=== PATIENT | female | born 1970 | race Caucasian/White ===

== ENCOUNTER → 2017-10-23 08:32 | Outpatient (CLI) | payer OTHER, SELFPAY ==
--- NOTE | 2017-10-23 08:40 | US_ITS ---
STUDY: ABDOMINAL ULTRASOUND - RIGHT UPPER QUADRANT REASON FOR VISIT: Female, 47 years old. Fatty infiltration of the liver. Prior cholecystectomy. TECHNIQUE: Ultrasound evaluation of the right upper quadrant was performed with real-time and static sahu-scale imaging. TECHNICAL QUALITY: Adequate. COMPARISON: Comparison is made with prior examination dated March 09, 2015. FINDINGS: Liver: The liver measures 17.1 cm. There is increased echogenicity consistent with fatty infiltration. The bile ducts are within normal limits. There is hepatic color flow. The direction of portal flow is hepatopetal. There is a 1.3 cm x 1.0 cm x 1.0 cm cyst in the right lobe of the liver. Gallbladder: The patient is status post cholecystectomy. Common Bile Duct (C.B.D.): The common bile duct measures 5.0 mm. Pancreas: Normal size of the head, body of the pancreas. The tail portion is obscured due to overlying bowel gas. There is normal echogenicity of the pancreas. There is no demonstrated pancreatic mass or cyst. Right Kidney: Normal size of the right kidney. The right kidney measures 12.3 cm x 4.9 cm x 3.9 cm. Normal renal cortex. The right cortex measures 1.2 cm. There is no demonstrated renal mass or cyst. There is no right hydronephrosis. US/Liver IMPRESSION: Fatty infiltration of the liver. Small cyst in the right lobe of the liver. Electronically Signed: Tray uMrphy MD at 11:32 EST Tel [phone], Service support ,
--- NOTE | 2017-10-23 08:41 | RAD_ITS ---
STUDY: X-RAY - LUMBAR SPINE REASON FOR EXAM: Female, 47 years old. Chronic low back pain. TECHNIQUE: 5 view(s) of the lumbar spine were obtained including oblique views. COMPARISON: None FINDINGS: Normal lumbar lordosis. There is a levoscoliosis of the lumbar spine. There is a grade 1 anterior listhesis of L5 on S1. This most likely secondary to facet joint osteoarthritis. Normal vertebral bodies and endplates. Mild degree of disc space narrowing at the L5-S1 level. The soft tissue structures are unremarkable. RAD/L/S Spine Min 4 Views IMPRESSION: Levoscoliosis. Grade 1 anterolisthesis of L5 on S1. Electronically Signed: Tray Murphy MD at 12:51 EST Tel [phone], Service support ,
== END ==
PROVIDERS: Family Provider Internal Medicine; PCP Internal Medicine; Visit Provider Internal Medicine
DX: K76.0 Fatty (change of) liver, not elsewhere classified (principal); M54.5 Low back pain; M54.16 Radiculopathy, lumbar region
CPT/HCPCS: 72110; 76705

== ENCOUNTER 2017-11-30 16:00 | Outpatient (RCR) | payer OTHER, SELFPAY ==
--- NOTE | 2017-11-24 07:17 | HP.PTEVAL_ITS ---
Patient's Visit Information JOAN GUDINO is a 47 year old F referred to Physical Therapy by Candelaria John DO with a diagnosis of low back pain with radiculopathy. Date of Evaluation: 11/11/17 Physical Therapist: Dayton Qureshi - Visit Plan Frequency: 2x /Week Duration: 4 Weeks Plan: Start with flexion based exercises, neutral spine core strengthening, lumbar distraction. Will have to put PT on hold after abdominal surgery, especially with core strengthening activities. Progress HEP as tolerated. - Subjective Subjective: Pt. is here today for her initial evaluation with diagnosis of low back pain with radiculopathy effecting her LLE. Pt. reports having LBP for years, but has become worse over the last 1-2 years. Pt. is now experiencing pain into her left leg, ocassionally to the level of her knee, mostly in the buttock. 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 She reports most of her job is sitting. She reports having numbness/tingling in LLE at times. Pt. denies weakness in LLE and no presence of leg giving out. Pt. also denies saddle region pain and no changes in B/B. Pt. does has a surgical hernia in her abdomen that she is having repaired in a few weeks. Pt. reports no issues with sleeping, but has increased pain with walking, lifting, standing and getting up/down. Decreased pain: OTC meds, ice/heat (temporary). Pt. did have xrays- showing narrowing of lower lumbar disc space and grade 1 anteriorlithesis at L5 on S1. Pt. is hopeful to reduce symptoms in order to get back to all recreational and work activities without issues. - Pain Lumbar spine Pain Intensity (Out of 10): 2 Pain Intensity Range: 0, 6 L posterior thigh Pain Intensity (Out of 10): 2 Pain Intensity Range: 0, 6 - Objective POSTURE: Pt. has increased thoracic kyphosis and reduced lumbar lordosis. Pt. has FH positioning with rounded shoulders. Pt. able to improve with VCing. PALPATION: Pt. has mild increase NW with palpation of bilateral lumbar erector spinea. Pt. has no pain with all spring testing. Mild hypombility noted at L3- L5. NEUROLOGICAL: Pt. has normal sensation to light and sharp touch of bilateral LEs. Pt. has 2+ achilles and patellar DTR bilaterally. Pt. is able to rise on heels and toes without LOB or visible signs of weakness. ROM: LUMBAR SPINE: flexion nil loss mild increase NW upon return, ext min/mod loss increase NW, SB R min loss NE, SB L min loss increase NW, rotation R min/nil loss NE, rotation L min loss increase NW. Pt. has normal hip ROM bilat, but does have tight HS bilaterally. MMT: RLE- ankle/knee 5/5 throughout; hip- flexion 4+/5, increase NW, abd 4/5, ext 4+/5. LLE- ankle 5/5 throughout; knee- ext 4+/5, flexion 5/5; hip- flexion 4+/5, abd 4/5, ext 4+/5. Core strength- poor. (pt. has marked R sided abdominal hernia. GAIT: Pt. ambulates without AD, pt. has increased lateral hip sway, but no marked trendelenburg. Pt. has no visible weakness. STAIRS: Pt. is able to negotiate without issues, with reciprocal pattern with HR. - Special Tests L/S Slump test left side: Negative L/S Slump test right side: Negative L/S Left Straight Leg Raise: Negative L/S Right Straight Leg Raise: Negative Lumbar Standing: Flexion - Mechanical Response: No effect Lumbar Standing: Flexion - Symptoms During Testing: No effect Lumbar Standing: Flexion - Symptoms After Testing: No effect Lumbar Standing: Extension - Mechanical Response: No effect Lumbar Standing: Extension - Symptoms During Testing: Increases Lumbar Standing: Extension - Symptoms After Testing: No worse Lumbar Standing: Right Side Glides - Mechanical Response: No effect Lumbar Standing: Right Side [place] - Symptoms During Testing: No effect Lumbar Standing: Right Side [place] - Symptoms After Testing: No effect Lumbar Standing: Left Side [place] - Mechanical Response: No effect Lumbar Standing: Left Side [place] - Symptoms During Testing: No effect Lumbar Standing: Left Side [place] - Symptoms After Testing: No effect Lumbar Lying: Flexion - Mechanical Response: No effect Lumbar Lying: Flexion - Symptoms During Testing: Decreases Lumbar Lying: Flexion - Symptoms After Testing: Better Lumbar Lying: Extension - Mechanical Response: No effect Lumbar Lying: Extension - Symptoms During Testing: Increases Lumbar Lying: Extension - Symptoms After Testing: No worse Lumbar Static: Slouched Sit - Mechanical Response: No effect Lumbar Static: Slouched Sit - Symptoms During Testing: Increases Lumbar Static: Slouched Sit - Symptoms After Testing: No worse Lumbar Static: Sitting Erect - Mechanical Response: No effect Lumbar Static: Sitting Erect - Symptoms During Testing: Decreases Lumbar Static: Sitting Erect - Symptoms After Testing: No better Lumbar Static:Lying Prone in Extension - Mechanical Response: No effect Lumbar Static: Lying Prone in Extension - Sx During Testing: Increases Lumbar Static: Lying Prone in Extension - Sx After Testing: Worse - Goals Goal 1:: Pt. to be I with HEP. Goal Time Frame: 4-6 Weeks Goal 2:: Pt. to have increased lumbar ROM by 25% in all directions without increase in symptoms. Goal Time Frame: 4-6 Weeks Goal 3:: Pt. to sleep throughout the night without increase in symptoms. Goal Time Frame: 4-6 Weeks Goal 4:: Pt. to have increased BLE and core strength by 1/2 grade reducing stress applied to lumbar spine. Goal Time Frame: 4-6 Weeks Goal 5:: Pt. to complete all ADLs and work activities with 0-1/10 pain in lumbar spine. - Rehabilitation Potential Physical Therapy Diagnosis: Pt. has signs and symptoms consistent with low back pain with radiculopathy. Pt. has marked core weakness and limited lumbar mobility. Pt. did not have a directional preference this date, but extension did increase her symptoms. Pt. did not have any + dural tension testing this date. Pt. would benefit from PT to increase lumabr ROM, core strength and decrease symptoms. Rehabilitation Potential: Good - Anticipated Interventions Patient/Client Instruction: Educate patient on: Condition, Plan of Care, Risk Factors, Benefits of Fitness Program For the Purpose of:: To improve decision making, To facilitate caregiver knowledge, To improve self management, To prevent re-injury, To improve ability to perform tasks related to life management, To improve tolerance to ADL's Therapeutic Exercise to Include: Strength training, Power training, Endurance training, Balance training, Passive ROM, Active ROM, Dynamic Lumbar Stabilization, Naif Exercises For the Purpose of:: To decrease pain, To increase ROM, To improve nutrient delivery to tissue, To increase oxygenation perfusion, To improve muscle performance and motor function, To improve health of tissue, To decrease soft tissue restriction, To increase flexibility/ROM, To improve endurance Manual Therapy Techniques to Include: Mobilization, Functional dry needling, Soft tissue mobilization For the Purpose of:: To decrease pain, To decrease swelling/inflammation, To increase ROM, To improve nutrient delivery to tissue IF ES: Yes Cryotherapy (ice pack, ice massage): Yes Thermo therapy (hot pack): Yes Ultrasound (thermal/non thermal): Yes For the Purpose of:: To decrease pain, To decrease swelling/inflammation, To increase ROM Thank you for the opportunity to evaluate your patient. For Medicare and Medicare HMO plans, please review the plan of care and approve it. It will need to be FAXED BACK to us at [phone] for Medicare purposes. Please let me know if there are questions or concerns regarding this plan of care. Physician Signature: Date:
--- NOTE | 2018-02-14 19:52 | HP.PT.NRP ---
HP - Discharge Summary (1) - Patient Information JOAN GUDINO was seen in my office for initial evaluation on 11/11/17. The following Plan of Care was established for this patient: Initial Frequency: 2x /Week Initial Duration: 4 Weeks - Anticipated Interventions Patient/Client Instruction: Educate patient on: Condition, Plan of Care, Risk Factors, Benefits of Fitness Program For the Purpose of:: To improve decision making, To facilitate caregiver knowledge, To improve self management, To prevent re-injury, To improve ability to perform tasks related to life management, To improve tolerance to ADL's Therapeutic Exercise to Include: Strength training, Power training, Endurance training, Balance training, Passive ROM, Active ROM, Dynamic Lumbar Stabilization, Naif Exercises For the Purpose of:: To decrease pain, To increase ROM, To improve nutrient delivery to tissue, To increase oxygenation perfusion, To improve muscle performance and motor function, To improve health of tissue, To decrease soft tissue restriction, To increase flexibility/ROM, To improve endurance Manual Therapy Techniques to Include: Mobilization, Functional dry needling, Soft tissue mobilization For the Purpose of:: To decrease pain, To decrease swelling/inflammation, To increase ROM, To improve nutrient delivery to tissue IF ES: Yes Cryotherapy (ice pack, ice massage): Yes Thermo therapy (hot pack): Yes Ultrasound (thermal/non thermal): Yes For the Purpose of:: To decrease pain, To decrease swelling/inflammation, To increase ROM This patient was last seen in our office 11/30/17. Pertinent comments regarding their Physical therapy will appear below: Pt. was seen for 4 visits for her low back pain. Focus on core strengthening. Pt. had a hernia surgery and was to follow up in PT once cleared. Pt. has not been seen in ~10 weeks and will be DC from PT at this point in time. At this point I will be discontinuing this patient from physical therapy. I would be happy to see this patient again in the future if found appropriate by the physician. Thank you! Dayton Qureshi
== END 2017-11-30 19:00 | disposition home or self-care (01) ==
LOC: PT 16:00
PROVIDERS: Family Provider Internal Medicine; PCP Internal Medicine; Visit Provider Internal Medicine
DX: M54.5 Low back pain (principal)
CPT/HCPCS: 97110; 97161

== ENCOUNTER 2017-12-09 05:38 | Day surgery (SDC) | payer OTHER, SELFPAY ==
--- NOTE | 2017-12-08 07:33 | EKG12_ITS ---
Test Reason : PRE-OP Blood Pressure : / mmHG Vent. Rate : 075 BPM Atrial Rate : 075 BPM P-R Int : 122 ms QRS Dur : 074 ms QT Int : 390 ms P-R-T Axes : 037 036 065 degrees QTc Int : 435 ms Normal sinus rhythm Normal ECG Confirmed by GIUSEPPE MOE MD ([id number]), editor at large AAYUSH ALANIZ ([id number]) on 12/10/2017 2:53:26 PM Referred By: Mil Rivera Confirmed By:GIUSEPPE MOE MD
[2017-12-08 08:29] LABS: Hematocrit 41.7 % (37-47); Hemoglobin 13.5 g/dl (12.0-15.0); Mean Corp Hgb Conc 32.4 g/gl (32-36); Mean Corpuscular Hgb 28.2 pg (27.0-32.0); Mean Corpuscular Volume 87.1 fL (81-99); Mean Platelet Vol. 10.3 fl (6.2-12.0); Platelet Count 314 K/mm3 (150-450); RBC Distribution Width SD 47.9 fl (35.1-43.9); Red Blood Count 4.79 M/mm3 (4.2-5.4); White Blood Count 8.4 K/mm3 (4.4-11.0)
[2017-12-08 08:30] LABS: Scan Indicated on CBC? Y/N NO
[2017-12-08 08:35] LABS: Prothrombin Time (Protime)PT. 12.9 SECONDS (11.7-14.9)
[2017-12-08 08:36] LABS: Partial Thromboplast Time 30.3 Seconds (24.1-36.2)
[2017-12-08 08:54] LABS: AST(SGOT) 10 U/L (15-37); Alanine Aminotransfer ALT/SGPT 13 U/L (13-56); Albumin, Serum 3.4 g/dL (3.2-5.0); Alkaline Phosphatase 91 U/L (45-117); Anion Gap 6 (5-15); BUN 9 mg/dL (7-18); BUN/Creat Ratio 12.6 RATIO (10-20); Calcium,Total 8.2 mg/dL (8.5-10.1); Chloride 104 mmol/L (98-107); Creatinine, Serum 0.71 mg/dL (0.55-1.02); EST Glomerular Filtration Rate 93 mL/min (>60); Est Glom Filt Rate - Afr Amer 113 mL/min (>60); Globulin 3.6 g/dL (2.2-4.2); Glucose 88 mg/dL (74-106); Potassium 3.5 mmol/L (3.5-5.1); Sodium Level 142 mmol/L (136-145)
[2017-12-09 05:51] VITALS: BP 118/79; PULSE 71; RESP 16; TEMP 36.9; O2SAT 97; BMI 41.8
[2017-12-09 06:02] LABS: Internal QC Validated? YES +Cl - CLEAR BKGD; Pregnancy, Urine Negative Negative
[2017-12-09] MEDS: Cefazolin 2 GM in 0.9% Normal Saline 100 ML IV (07:14)
--- NOTE | 2017-12-09 07:14 | OP.PCM_ITS ---
Problem List (1) Incisional hernia Status: Acute Qualifiers: Obstruction and gangrene presence: without obstruction or gangrene Qualified Code(s): K43.2 - Incisional hernia without obstruction or gangrene; K43.91 - Incisional hernia, without obstruction or gangrene Report of Operation Date of Procedure: 12/09/17 Pre-Operative Diagnosis: k43.91 incisional hernia without obstruction or gangrene Post-Operative Diagnosis: Same Surgery/Procedure Performed:: Incisional hernia repair with mesh Type of Anesthesia:: General Anesthesiologist: Tyrel Levy Estimated Blood Loss (mL): < 25 cc Description of Procedure: Patient was brought into the operating room. Placed in the supine position. Under excellent endotracheal intubation the abdomen was sterilely prepped and draped in the usual fashion. Previous incision was opened up below the umbilicus dissection was carried down to the defect. I was able to circumferentially dissect around the defect and placed the hernia sac back into its preperitoneal space. Once I had delineated the fascial edge I grasped with Manjula's and created a preperitoneal window in the abdomen. I did this circumferentially around this defect. I had excellent hemostasis. I injected local. I fashioned a entry no ST hernia patch reference #[id number] lot number [id number] into the wound. I circumferentially tacked to the fascia with figure- of-eight sutures of #1 Nurolon's. I had good hemostasis more local was injected. The subcu was brought together with 2-0 Vicryl deep dermals of 3-0 Vicryl. The skin was then closed with a running subcuticular of 4-0 Monocryl. Steri-Strips are applied sterile dressings were applied and the patient tolerated the procedure well. - Admit VTE Documentation VTE Present on Admission: No VTE Mechan Device Prophylaxis: SCD's VTE Pharm Prophylaxis ordered?: No Reason prophylaxis not ordered:: Treatment Not Indicated
[2017-12-09] MEDS: Bupivacaine 0.25% 30 ML Vial (07:20)
--- NOTE | 2017-12-09 07:55 | DCINST_ITS ---
Discharge Diet: Light diet - advance as tolerated Discharge Activity: Return to Normal Activity, May Drive - when you are no longer taking narcotic pain medications., May Shower - with the bandage in place 1-2 days after surgery. Lifting Restrictions: 20 pounds for 8 weeks. Additional Activity Instructions:: Climbing stairs is fine, walking is encouraged. Sitting in bed may be uncomfortable. Sitting up using your lateral muscles (sitting up sideways) is usually more comfortable. Do not drive, work heavy equipment of sign legal documents for 24 hours. If your hernia repair was an ingunial repair, you may have scrotal swelling, an ice pack and/or athletic support can provide more comfort. Pain medications may cause nausea, you should typically eat light foods as you take your pain medications. Pain medications may also cause constipation. If you have difficulty with this, discuss with your doctor. Call your doctor if your incision/area has: Continuous Slow Oozing, Sudden Increased Bleeding, Increased Pain/ Swelling, Increased Redness, Foul Smelling Discharge Call your doctor if you observe: Fever of 101 or Higher Suture Line Care: Avoid Pulling/Pushing, Avoid Pinching/Bending Additional Dressing/Incision Instructions:: Leave the operative bandage on for 2 -3 days. When you remove the bandage, leave the steri-strips on place until your follow up appointment or they fall off. Allergies/Adverse Reactions: Allergies Sulfa (Sulfonamide Antibiotics) Allergy (Verified 12/04/17 14:56) Unknown Medications to take at Discharge Esomeprazole Mag Trihydrate [Nexium] 40 mg PO PRN PRN 01/14/14 Potassium Chloride [K-Dur] 10 meq PO PRN PRN 03/22/15 montelukast 10 mg tablet 10 mg PO QHS 10/27/17 pravastatin 40 mg tablet 20 mg PO QHS 10/27/17 valsartan 160 mg-hydrochlorothiazide 12.5 mg tablet 1 tab PO DAILY 10/27/17 venlafaxine ER 37.5 mg capsule,extended release 24 hr 37.5 mg PO DAILY 10/27/17 Cholecalciferol (Vitamin D3) [Vitamin D3] 5,000 unit PO DAILY 12/02/17 Iron Carbonyl [Feosol] 27 mg PO DAILY 12/02/17 busPIRone [Buspar] 10 mg PO DAILY 12/02/17 Oxycodone HCl/Acetaminophen [Percocet 5/325] 1 - 2 tab PO Q4H PRN PRN 4 Days # 30 tab 12/09/17 The following prescriptions were given: Oxycodone HCl/Acetaminophen [Percocet 5/325] 1 - 2 tab PO Q4H PRN PRN 4 Days # 30 tab PRN Reason: Pain Primary Care Physician: Candelaria John DO [Primary Care Provider] - Please Follow Up With: Mil Rivera MD - [phone] When: Plan to have a follow up appointment in 7 days. Call to schedule.
[2017-12-09 08:19] VITALS: BP 118/79; BP 142/94; PULSE 87; RESP 16; TEMP 36.5; O2SAT 99
[2017-12-09 08:30] VITALS: BP 118/79; BP 129/81; PULSE 77; RESP 16; O2SAT 100
[2017-12-09 08:45] VITALS: BP 118/79; BP 121/79; PULSE 84; RESP 16; O2SAT 94
[2017-12-09 09:00] VITALS: BP 118/79; BP 133/89; PULSE 75; RESP 16; TEMP 36.3; O2SAT 98
[2017-12-09 10:10] VITALS: BP 118/79
== END 2017-12-09 10:18 | disposition home or self-care (01) ==
LOC: SDC 05:41 → AC 05:41
PROVIDERS: Anesthesiology; Family Provider Internal Medicine; PCP Internal Medicine; Visit Provider Surgery
PROC: (CPT 49560; principal; 2017-12-09 07:00)
DX: K43.2 Incisional hernia without obstruction or gangrene (principal); F41.9 Anxiety disorder, unspecified; J45.909 Unspecified asthma, uncomplicated; F32.9 Major depressive disorder, single episode, unspecified; E78.00 Pure hypercholesterolemia, unspecified; I10 Essential (primary) hypertension; M19.90 Unspecified osteoarthritis, unspecified site; G47.30 Sleep apnea, unspecified; D64.9 Anemia, unspecified; K21.9 Gastro-esophageal reflux disease without esophagitis; K76.0 Fatty (change of) liver, not elsewhere classified; Z87.19 Personal history of other diseases of the digestive system; F17.200 Nicotine dependence, unspecified, uncomplicated; Z90.49 Acquired absence of other specified parts of digestive tract; Z79.899 Other long term (current) drug therapy
CPT/HCPCS: 49560; 49568; 36415; 80048; 80076; 81025; 85027; 85610; 85730; 93005; J7120; C1781; J2405

== ENCOUNTER → 2018-01-13 10:20 | Outpatient (CLI) | payer OTHER, SELFPAY ==
[2018-01-13 11:04] LABS: Absolute Lymphocyte Count 2.73 X10^3/ul (0.83-4.51); Absolute Neutrophil Count 6.7 X10^3/uL (2.0-7.7); Basophil# 0.03 X10^3/uL; Basophil% 0.3 % (0-1); Eosinophil# 0.26 X10^3/uL; Eosinophils% 2.5 % (0-5); Hematocrit 42.4 % (37-47); Hemoglobin 13.8 g/dl (12.0-15.0); Lymphocyte # 2.73 X10^3/ul (4.0); Lymphocyte % 26.2 % (19-41); Mean Corp Hgb Conc 32.5 g/gl (32-36); Mean Corpuscular Hgb 27.9 pg (27.0-32.0); Mean Corpuscular Volume 85.8 fL (81-99); Mean Platelet Vol. 10.3 fl (6.2-12.0); Monocyte# 0.72 X10^3/uL; Monocyte% 6.9 % (0-10); Neutrophil # 6.67 X10^3/uL (2.7-7.7); POSITIVE COUNT NO; POSITIVE DIFFERENTIAL NO; POSITIVE MORPHOLOGY NO; Platelet Count 315 K/mm3 (150-450); RBC Distribution Width CV 14.9 % (11.6-14.6); RBC Distribution Width SD 46.7 fl (35.1-43.9); Red Blood Count 4.94 M/mm3 (4.2-5.4); White Blood Count 10.4 K/mm3 (4.4-11.0)
[2018-01-13 11:49] LABS: Microalbumin,Random Urine 13.5 mg/L (NO RANGE EST.); Microalbumin:Creatinine Ratio 6.3 mg/g CRE (<30 mg/g CRE)
[2018-01-13 11:52] LABS: AST(SGOT) 13 U/L (15-37); Alanine Aminotransfer ALT/SGPT 19 U/L (13-56); Albumin, Serum 3.8 g/dL (3.2-5.0); Alkaline Phosphatase 99 U/L (45-117); Anion Gap 6 (5-15); BUN 9 mg/dL (7-18); BUN/Creat Ratio 11.3 RATIO (10-20); Calcium,Total 8.6 mg/dL (8.5-10.1); Chloride 105 mmol/L (98-107); Cholesterol 223 mg/dL (200); EST Glomerular Filtration Rate 82 mL/min (>60); Est Glom Filt Rate - Afr Amer 99 mL/min (>60); Ferritin 12 ng/mL (8-252); Globulin 3.9 g/dL (2.2-4.2); Glucose 83 mg/dL (74-106); High Density Lipoprotein 39 mg/dL; Iron 49 ug/dL (50-170); Iron Binding Capacity,Total 392 ug/dL (250-450); Potassium 3.7 mmol/L (3.5-5.1); Protein, Total 7.7 g/dL (6.4-8.2); Sodium Level 139 mmol/L (136-145); Triglycerides 248 mg/dL; Very Low Density Lipoprotein 50 mg/dL (5-40)
[2018-01-13 11:55] LABS: Hemoglobin A1c 5.7 % (4.2-6.3)
[2018-01-13 11:56] LABS: Vitamin B12 282 pg/mL (211-911); Vitamin D,25 Hydroxy 22.1 ng/mL (29.95-100.01)
== END ==
PROVIDERS: Family Provider Internal Medicine; PCP Internal Medicine; Visit Provider Internal Medicine
DX: E61.1 Iron deficiency (principal); E55.9 Vitamin D deficiency, unspecified; E78.2 Mixed hyperlipidemia; R73.09 Other abnormal glucose
CPT/HCPCS: 36415; 80053; 80061; 82043; 82306; 82570; 82607; 82728; 83036; 83540; 83550; 85025

== ENCOUNTER → 2018-01-29 16:15 | Outpatient (CLI) | payer OTHER, SELFPAY ==
--- NOTE | 2018-01-29 16:26 | MRI_ITS ---
MR Spine Lumbar W/O Contrast INDICATION: Low back pain with bilateral hip pain radiating to left leg, NKI. Worsening symptoms x 6-8 months COMPARISON: None TECHNIQUE: Multiplanar multisequence MRI examination of the lumbar spine without contrast FINDINGS: There is mild left convex scoliosis of the lumbar spine and minimal anterolisthesis of L5 on S1, otherwise normal lumbar lordosis. Bone marrow signal is heterogenous with a few small hemangiomas. No evidence of bone marrow edema or lesion. The conus is located at the T12/L1 level and is morphologically unremarkable. There is normal distribution of the nerve roots of the cauda equina. T12-L1 level is unremarkable. L1-2 level demonstrates mild left lateral disc bulging, no significant spinal canal or neuroforaminal narrowing. L2-3 level demonstrates mild facet arthritic changes, no significant disc bulging, spinal canal or neuroforaminal narrowing. L3-4 level demonstrates mild endplate degenerative changes and mild diffuse distorting. There is mild bilateral facet joint arthropathy. There is no significant spinal canal or neuroforaminal stenosis. L4-5 level demonstrates mild facet arthritic changes and disc bulging resulting in [id number] bilateral neuroforaminal narrowing. Spinal canal is not significantly narrowed. L5-S1 level demonstrates severe bilateral facet joint arthropathy/hypertrophy resulting in 3 mm anterolisthesis of L5 on S1. The disc is mildly diffusely bulging. There is mild right and moderate left neural foraminal narrowing. Spinal canal is not significantly narrowed. MRI/Spine Lumbar (Routine) IMPRESSION: Mild left convex scoliosis of the lumbar spine with multilevel degenerative changes as detailed above, most severe at L5-S1 where there is severe facet joint arthropathy/hypertrophy with 3 mm listhesis and mild right and moderate left neuroforaminal narrowing. The spinal canal is not significantly narrowed at any level. at 0110 Reported and signed by: Areli Cardozo MD Electronically Signed: Areli Cardozo MD at 1:09 EDT Tel , Service support ,
== END ==
PROVIDERS: Family Provider Internal Medicine; PCP Internal Medicine; Visit Provider Internal Medicine
DX: M54.5 Low back pain (principal)
CPT/HCPCS: 72148

== ENCOUNTER → 2018-02-10 09:55 | Outpatient (CLI) | payer OTHER, SELFPAY ==
--- NOTE | 2018-02-10 09:57 | RAD_ITS ---
STUDY: X-RAY CHEST REASON FOR EXAM: Female, 47 years old. 2 week history of TECHNIQUE: PA and lateral views of the chest. COMPARISON: Comparison is made with prior study dated March 07, 2015. FINDINGS: The lungs are clear and expanded. Scattered calcified granulomas. There is no demonstrated pleural abnormality. Normal size heart. Normal mediastinum and maikel. Normal visualized pulmonary arteries. Normal visualized aortic arch and descending thoracic aorta. There is a dextroscoliosis of the thoracic spine. Normal visualized ribs, clavicles, and shoulders. There is no demonstrated abnormality of the visualized soft tissue structures of the upper abdomen. RAD/Chest PA and Lateral IMPRESSION: No acute abnormality is seen. Electronically Signed: Tray Murphy MD at 10:16 EDT Tel [phone], Service support ,
== END ==
PROVIDERS: Family Provider Internal Medicine; PCP Internal Medicine; Visit Provider Internal Medicine
DX: R05 Cough (principal)
CPT/HCPCS: 71046

== ENCOUNTER 2018-05-03 12:49 | Day surgery (SDC) | payer OTHER, SELFPAY ==
[2018-05-03 13:07] VITALS: BP 129/84; PULSE 85; RESP 14; TEMP 36.8; O2SAT 94; BMI 44.4
[2018-05-03 13:18] LABS: Internal QC Validated? YES +Cl - CLEAR BKGD; Pregnancy, Urine Negative Negative
--- NOTE | 2018-05-03 14:10 | RAD_ITS ---
PROCEDURE: Caudal block. DATE OF EXAMINATION: May 03, 2018. INDICATION: Female, 47 years old. Chronic low back pain. FLUOROSCOPY TIME (if supplied): (0:12) minutes/seconds. 2 images were obtained. The spinal needle is seen along the posterior midportion of the sacrum. RAD/Fluor Guidance for Spine Inj IMPRESSION: The spinal needle is seen along the posterior midportion of the sacrum. Electronically Signed: Tray Murphy MD at 8:24 EDT Tel [phone], Service support ,
[2018-05-03] MEDS: Bupivacaine 0.25% 30 ML Vial (14:20)
[2018-05-03] MEDS: MethylPREDNISolone Acetate 80 MG/ML Vial (14:20)
[2018-05-03 14:26] VITALS: BP 104/82; BP 129/84; PULSE 83; RESP 16; TEMP 37.1; O2SAT 96
[2018-05-03 14:30] VITALS: BP 103/75; BP 129/84; PULSE 72; RESP 16; O2SAT 99
[2018-05-03 14:35] VITALS: BP 102/70; BP 129/84; PULSE 72; RESP 16; O2SAT 98
[2018-05-03 14:44] VITALS: BP 123/81; BP 129/84; PULSE 82; RESP 16; TEMP 36.7; O2SAT 98
[2018-05-03 15:04] VITALS: BP 129/84
--- NOTE | 2018-05-03 15:09 | PCM.OPRPT ---
Problem List (1) Radiculopathy of lumbosacral region Status: Chronic (2) Degeneration of intervertebral disc of lumbosacral region Status: Chronic Report of Operation Date of Procedure: 05/03/18 Pre-Operative Diagnosis: Lumbosacral radiculopathy, lumbosacral degenerative disc disease, lumbosacral spinal stenosis Post-Operative Diagnosis: Lumbosacral radiculopathy, lumbosacral degenerative disc disease, lumbosacral spinal stenosis Surgery/Procedure Performed:: Diagnostic/therapeutic caudal epidural steroid injection Description of Surgical Findings:: PROCEDURE: Diagnostic/therapeutic caudal epidural steroid injection PREOPERATIVE DIAGNOSIS: Lumbosacral radiculopathy, lumbosacral degenerative disc disease, lumbosacral spinal stenosis POSTOPERATIVE DIAGNOSIS: Lumbosacral radiculopathy, lumbosacral degenerative disc disease, lumbosacral spinal stenosis ANESTHESIA: MAC COMPLICATIONS: None BLOOD LOSS: Minimal PROCEDURE IN DETAIL: History and physical today was reviewed. Risks and benefits of the procedure were explained. The patient understood, agreed to our procedure, and informed consent was obtained. IV inserted per routine protocol. The patient was taken to the operating room, placed in a prone position with a pillow positioned underneath the abdomen. The Lower back and tailbone area was prepped and draped in a sterile fashion using iodine ?3, under fluoroscopy guidance on the lateral view the caudal space was identified the skin and subcutaneous tissue and size approximately 3 cc of 1% lidocaine using a 25-gauge regular needle under direct visualization with fluoroscopy using a 22-gauge 3-1/2 inch spinal needle the needle was advanced via the skin through the sacral hiatus the needle then was passed through the sacrococcygeal ligament and advanced to approximately S4 area, after negative aspiration for blood or CSF, a total of 3 cc of contrast were injected to confirm correct placement of the needle as well as cephalad spread the spread was followed to approximately L5 area. after confirmation on AP as well as lateral view and repeated negative aspiration, a total of 15 cc of preservative-free 0.125% Marcaine with 80 mg of Depo-Medrol was injected easily. The needles were then removed intact. The patient experienced no signs or symptoms intrathecal, intravascular injection. The patient experienced no paraesthesia. The procedure was completed without any apparent difficult, any complication. The patient appeared to tolerate well. ASSESSMENT AND PLAN: This is a 47-year-old female with lumbosacral radiculopathy, lumbosacral degenerative disc disease, lumbosacral spinal stenosis status post diagnostic/therapeutic caudal epidural steroid injection. The patient will continue her current medications. The patient will follow in approximately 2 weeks for possible repeat of the procedure if indicated.
== END 2018-05-03 15:04 | disposition home or self-care (01) ==
LOC: SDC 12:49 → AC 12:52
PROVIDERS: Anesthesiology; Family Provider Internal Medicine; PCP Internal Medicine; Visit Provider Anesthesiology Pain Medicine
PROC: 3E0S3BZ Introduction of Anesthetic Agent into Epidural Space, Percutaneous Approach (ICD-10-PCS; CPT 62282; principal; 2018-05-03 13:45)
DX: M47.27 Other spondylosis with radiculopathy, lumbosacral region (principal); M51.37 Other intervertebral disc degeneration, lumbosacral region; M48.07 Spinal stenosis, lumbosacral region; M46.96 Unspecified inflammatory spondylopathy, lumbar region; I83.90 Asymptomatic varicose veins of unspecified lower extremity; I11.9 Hypertensive heart disease without heart failure; G43.909 Migraine, unspecified, not intractable, without status migrainosus; F41.9 Anxiety disorder, unspecified; F32.9 Major depressive disorder, single episode, unspecified; G47.33 Obstructive sleep apnea (adult) (pediatric); E78.00 Pure hypercholesterolemia, unspecified; L40.9 Psoriasis, unspecified; M19.90 Unspecified osteoarthritis, unspecified site; J45.909 Unspecified asthma, uncomplicated; D64.9 Anemia, unspecified; M41.9 Scoliosis, unspecified; K21.9 Gastro-esophageal reflux disease without esophagitis; Z87.19 Personal history of other diseases of the digestive system; Z79.891 Long term (current) use of opiate analgesic; Z79.899 Other long term (current) drug therapy; F17.210 Nicotine dependence, cigarettes, uncomplicated
CPT/HCPCS: 62323; 64483; 77003; 81025; J7120; J3490

== ENCOUNTER → 2018-05-05 07:54 | Outpatient (CLI) | payer OTHER, SELFPAY ==
[2018-05-05 08:19] LABS: Absolute Lymphocyte Count 2.72 X10^3/ul (0.83-4.51); Absolute Neutrophil Count 9.2 X10^3/uL (2.0-7.7); Basophil# 0.02 X10^3/uL; Basophil% 0.2 % (0-1); Eosinophil# 0.05 X10^3/uL; Eosinophils% 0.4 % (0-5); Hematocrit 42.4 % (37-47); Hemoglobin 14.1 g/dl (12.0-15.0); Lymphocyte # 2.72 X10^3/ul (4.0); Lymphocyte % 21.6 % (19-41); Mean Corp Hgb Conc 33.3 g/gl (32-36); Mean Corpuscular Hgb 28.7 pg (27.0-32.0); Mean Corpuscular Volume 86.2 fL (81-99); Mean Platelet Vol. 10.3 fl (6.2-12.0); Monocyte# 0.56 X10^3/uL; Monocyte% 4.5 % (0-10); Neutrophil # 9.21 X10^3/uL (2.7-7.7); Neutrophil % 73.1 % (47-70); POSITIVE COUNT NO; POSITIVE DIFFERENTIAL NO; POSITIVE MORPHOLOGY NO; Platelet Count 351 K/mm3 (150-450); RBC Distribution Width CV 14.4 % (11.6-14.6); RBC Distribution Width SD 45.1 fl (35.1-43.9); Red Blood Count 4.92 M/mm3 (4.2-5.4); White Blood Count 12.6 K/mm3 (4.4-11.0)
[2018-05-05 08:45] LABS: ALB/GLOB Ratio 0.9 RATIO (0.9-2.4); AST(SGOT) 11 U/L (15-37); Alanine Aminotransfer ALT/SGPT 18 U/L (13-56); Albumin, Serum 3.7 g/dL (3.2-5.0); Alkaline Phosphatase 93 U/L (45-117); Anion Gap 12 (5-15); BUN 14 mg/dL (7-18); BUN/Creat Ratio 16.9 RATIO (10-20); Chloride 105 mmol/L (98-107); Cholesterol 249 mg/dL (200); Creatinine, Serum 0.83 mg/dL (0.55-1.02); EST Glomerular Filtration Rate 78 mL/min (>60); Est Glom Filt Rate - Afr Amer 94 mL/min (>60); Glucose 105 mg/dL (74-106); High Density Lipoprotein 36 mg/dL; Potassium 3.6 mmol/L (3.5-5.1); Protein, Total 7.7 g/dL (6.4-8.2); Sodium Level 142 mmol/L (136-145); Triglycerides 139 mg/dL; Very Low Density Lipoprotein 28 mg/dL (5-40)
[2018-05-05 09:06] LABS: Vitamin B12 463 pg/mL (211-911); Vitamin D,25 Hydroxy 56.1 ng/mL (29.95-100.01)
== END ==
PROVIDERS: Family Provider Internal Medicine; PCP Internal Medicine; Visit Provider Internal Medicine
DX: I11.9 Hypertensive heart disease without heart failure (principal); E78.2 Mixed hyperlipidemia; K76.0 Fatty (change of) liver, not elsewhere classified; E55.9 Vitamin D deficiency, unspecified; E53.8 Deficiency of other specified B group vitamins
CPT/HCPCS: 36415; 80053; 80061; 82105; 82306; 82607; 85025

== ENCOUNTER → 2018-06-17 15:58 | Outpatient (CLI) | payer OTHER, SELFPAY ==
--- NOTE | 2018-06-17 15:59 | BI_ITS ---
MAMMOGRAPHY - BILATERAL SCREENING 3-D CASEY SYNTHESIS REASON FOR EXAM: Female, 47 years old. Bilateral Screening 3-D tomosynthesis PERTINENT HISTORY: No significant family history. 40 pound weight gain. TECHNIQUE: 2-D mammograms and 3-D Casey synthesis of the breast (s) were performed. CAD was performed. COMPARISON: 04/28/2017. FINDINGS: The breast composition is composed of scattered fibroglandular density. No dense spiculated masses or suspicious microcalcification cluster are identified. No architectural distortion or asymmetric density is identified. There is no skin thickening or nipple retraction identified. There has been no significant change identified since the prior study. BI/SCREENING MAMM (CAD), BILAT IMPRESSION: No mammographic sign of malignancy. Routine yearly mammograms recommended. ASSESSMENT CATEGORY: BIRADS Category 2: Benign. A letter regarding these results will be sent to the patient by the facility within 30 days. FOLLOW UP RECOMMENDATION: Yearly follow up mammogram recommended. (A) Negative mammographic results should not deter biopsy as a palpable lesion if present should be followed based on clinical grounds and biopsy performed if clinically persistent for 3 months or increasing size. Approximately 10% of breast cancers are not detected by mammography. A normal mammogram should not delay biopsy of a clinically suspicious abnormality. Electronically Signed: Yaakov Monroy, at 18:54 EDT Tel , Service support ,
== END ==
PROVIDERS: Family Provider Internal Medicine; PCP Internal Medicine; Visit Provider Internal Medicine
DX: Z12.31 Encounter for screening mammogram for malignant neoplasm of breast (principal)
CPT/HCPCS: 77063; 77067

== ENCOUNTER 2018-06-28 07:44 | Day surgery (SDC) | payer OTHER, SELFPAY ==
[2018-06-28] VITALS (7 sets, daily range): BP systolic 107–120; BP diastolic 57–83; PULSE 70–87; RESP 16; TEMP 36.3–37.2; O2SAT 94–98; BMI 45.3
[2018-06-28 08:10] LABS: Internal QC Validated? YES +Cl - CLEAR BKGD; Pregnancy, Urine Negative Negative
--- NOTE | 2018-06-28 08:55 | RAD_ITS ---
PROCEDURE: Bilateral L4 S1 lumbar facet injections. DATE OF EXAMINATION: June 28, 2018. INDICATION: Female, 47 years old. Chronic low back pain. FLUOROSCOPY TIME (if supplied): (0:32) minutes/seconds Intraoperative imaging provided for bilateral L4-S1 facet joint injections. RAD/L/S Spine Min 4 Views IMPRESSION: Intraoperative imaging provided for bilateral L4-S1 facet joint injections. Electronically Signed: Tray Murphy MD at 15:12 EDT Tel [phone], Service support ,
[2018-06-28] MEDS: MethylPREDNISolone Acetate 80 MG/ML Vial (09:01)
[2018-06-28] MEDS: Bupivacaine 0.5% PF 10 ML VIAL (09:01)
--- NOTE | 2018-06-28 10:21 | OP.PCM_ITS ---
Problem List (1) Spondylosis of lumbosacral region without myelopathy or radiculopathy Status: Chronic (2) Degeneration of intervertebral disc of lumbosacral region Status: Chronic Report of Operation Date of Procedure: 06/28/18 Pre-Operative Diagnosis: Lumbosacral spondylosis, lumbosacral degenerative disc disease, lumbar facet arthropathy Post-Operative Diagnosis: Lumbosacral spondylosis, lumbosacral degenerative disc disease, lumbar facet arthropathy Surgery/Procedure Performed:: Bilateral lumbar facet steroid injection L4, L5, S1 Description of Surgical Findings:: PROCEDURE: Bilateral lumbar facet steroid injection L4, L5, S1 PREOPERATIVE DIAGNOSIS: Lumbosacral spondylosis, lumbosacral degenerative disc disease, and lumbar facet arthropathy POSTOPERATIVE DIAGNOSIS: Lumbosacral spondylosis, lumbosacral degenerative disc disease, and lumbar facet arthropathy ANESTHESIA: MAC COMPLICATIONS: None BLOOD LOSS: Minimal PROCEDURE IN DETAIL: History and physical today was reviewed. Risks and benefits of the procedure were explained. The patient understood, agreed to our procedure, and informed consent was obtained. IV inserted per routine protocol. The patient was taken to the operating room, placed in a prone position with a pillow positioned underneath the abdomen. The right side of his lower back was prepped and draped in a sterile fashion using iodine x3. Under fluoroscopy guidance, on AP view the L4 through S1 vertebral bodies are visualized the skin and subcutaneous tissue and size approximately 5 cc of 1% lidocaine using a 25-gauge regular needle under direct visualization with fluoroscopy at approximately 15 degrees angle starting on the left L4 ending on the right L4 passing through the L5-S1 bilaterally, the needle was advanced via the skin. The tip of the needle was maneuvered and directed towards the superior and medial gutter of the transverse process at the vicinity of the medial branch. Once the tip of the needle was in contact with the bone, the needle pulled approximately 2 mm off the bone. After negative aspiration of blood with CSF and confirmation of AP as well as oblique view, a total of 12 mL of preservative-free 0.25% Marcaine with 80 mg of Depo- Medrol was injection in divided doses between those 6 levels. The needles were then removed intact. The patient experienced no signs or symptoms intrathecal, intravascular injection. The patient experienced no paraesthesia. The procedure was completed without any apparent difficult, any complication. The patient appeared to tolerate well. ASSESSMENT AND PLAN: This is a 47-year-old female with lumbosacral spondylosis, lumbosacral degenerative disc disease and lumbar facet arthropathy, status post bilateral lumbar facet steroid injection L4 through S1. The patient will continue her current medications. The patient will follow in approximately 2 weeks for possible repeat of the procedure if indicated.
== END 2018-06-28 10:00 | disposition home or self-care (01) ==
LOC: SDC 07:44 → AC 07:45
PROVIDERS: Family Provider Internal Medicine; PCP Internal Medicine; Referring Provider Anesthesiology Pain Medicine; Visit Provider Anesthesiology Pain Medicine
PROC: 3E0T3BZ Introduction of Anesthetic Agent into Peripheral Nerves and Plexi, Percutaneous Approach (ICD-10-PCS; CPT 64493; principal; 2018-06-28 08:50)
DX: M51.17 Intervertebral disc disorders with radiculopathy, lumbosacral region (principal); M47.27 Other spondylosis with radiculopathy, lumbosacral region; M48.07 Spinal stenosis, lumbosacral region; M43.17 Spondylolisthesis, lumbosacral region; M46.90 Unspecified inflammatory spondylopathy, site unspecified; K29.00 Acute gastritis without bleeding; I11.9 Hypertensive heart disease without heart failure; F41.9 Anxiety disorder, unspecified; F32.9 Major depressive disorder, single episode, unspecified; G47.33 Obstructive sleep apnea (adult) (pediatric); E53.8 Deficiency of other specified B group vitamins; E55.9 Vitamin D deficiency, unspecified; E78.5 Hyperlipidemia, unspecified; J45.909 Unspecified asthma, uncomplicated; K21.9 Gastro-esophageal reflux disease without esophagitis; D64.9 Anemia, unspecified; F17.200 Nicotine dependence, unspecified, uncomplicated; Z79.51 Long term (current) use of inhaled steroids; Z79.891 Long term (current) use of opiate analgesic; Z79.899 Other long term (current) drug therapy
CPT/HCPCS: 64493; 64494; 64495; 64483; 72110; 81025; J7120; J3490

== ENCOUNTER → 2018-08-18 09:12 | Outpatient (CLI) | payer OTHER, SELFPAY ==
[2018-06-28 08:10] VITALS: BMI 45.3
[2018-08-18 10:13] LABS: Absolute Neutrophil Count 8.1 X10^3/uL (2.0-7.7); Basophil# 0.03 X10^3/uL; Basophil% 0.3 % (0-1); Eosinophil# 0.19 X10^3/uL; Eosinophils% 1.6 % (0-5); Hematocrit 42.4 % (37-47); Lymphocyte % 22.1 % (19-41); Mean Corpuscular Hgb 28.5 pg (27.0-32.0); Mean Corpuscular Volume 86.2 fL (81-99); Mean Platelet Vol. 10.5 fl (6.2-12.0); Monocyte# 0.85 X10^3/uL; Monocyte% 7.2 % (0-10); Neutrophil # 8.05 X10^3/uL (2.7-7.7); Neutrophil % 68.6 % (47-70); Platelet Count 339 K/mm3 (150-450); RBC Distribution Width CV 14.9 % (11.6-14.6); RBC Distribution Width SD 46.4 fl (35.1-43.9); Red Blood Count 4.92 M/mm3 (4.2-5.4); White Blood Count 11.7 K/mm3 (4.4-11.0)
[2018-08-18 10:18] LABS: POSITIVE COUNT NO; POSITIVE DIFFERENTIAL NO; POSITIVE MORPHOLOGY NO
[2018-08-18 10:33] LABS: Microalbumin,Random Urine 8.1 mg/L (NO RANGE EST.); Microalbumin:Creatinine Ratio 4.6 mg/g CRE (<30 mg/g CRE)
[2018-08-18 10:39] LABS: Hemoglobin A1c 5.6 % (4.2-6.3)
[2018-08-18 10:50] LABS: ALB/GLOB Ratio 0.8 RATIO (0.9-2.4); AST(SGOT) 10 U/L (15-37); Alanine Aminotransfer ALT/SGPT 15 U/L (13-56); Albumin, Serum 3.4 g/dL (3.2-5.0); Alkaline Phosphatase 94 U/L (45-117); Anion Gap 10 (5-15); BUN 10 mg/dL (7-18); Calcium,Total 8.7 mg/dL (8.5-10.1); Chloride 105 mmol/L (98-107); Creatinine, Serum 0.83 mg/dL (0.55-1.02); EST Glomerular Filtration Rate 77 mL/min (>60); Est Glom Filt Rate - Afr Amer 94 mL/min (>60); Ferritin 16 ng/mL (8-252); Glucose 85 mg/dL (74-106); Iron 94 ug/dL (50-170); Potassium 3.5 mmol/L (3.5-5.1); Protein, Total 7.4 g/dL (6.4-8.2); Sodium Level 140 mmol/L (136-145)
[2018-08-19 08:23] LABS: AFP, Tumor Marker 1.2 ng/mL (0.0-8.3)
== END ==
PROVIDERS: Family Provider Internal Medicine; PCP Internal Medicine; Referring Provider Internal Medicine; Visit Provider Internal Medicine
DX: K76.0 Fatty (change of) liver, not elsewhere classified (principal); R73.01 Impaired fasting glucose; E61.1 Iron deficiency
CPT/HCPCS: 36415; 80053; 82043; 82105; 82570; 82728; 83036; 83540; 85025

== ENCOUNTER 2018-12-13 07:43 | Day surgery (SDC) | payer OTHER, SELFPAY ==
--- NOTE | 2018-12-09 08:49 | HP.PCM_ITS ---
History of Present Illness The patient is a 48 year old F [] Past Medical History Past Medical History (Chronic Problems): Chronic Problems (Last Reviewed 12/16/17 @ 08:14 by Keke Vasquez) Radiculopathy of lumbosacral region (Chronic) Degeneration of intervertebral disc of lumbosacral region (Chronic) Spondylosis of lumbosacral region without myelopathy or radiculopathy (Chronic) HTN (hypertension) (Chronic) Medical History: Medical History (Last Reviewed 12/16/17 @ 08:14 by Keke Vasquez) HTN (hypertension) (Chronic) I10 Depression (Acute) F32.9 Anxiety (Acute) F41.9 Hyperlipidemia (Acute) E78.5 Asthma (Acute) J45.909 repair of right humerus (Acute) Allergies Sulfa (Sulfonamide Antibiotics) Allergy (Verified 12/16/17 08:16) Unknown Home Medications: Ambulatory Orders Medication Instructions Recorded Potassium Chloride [K-Dur] 10 meq PO PRN PRN 03/22/15 montelukast 10 mg tablet 10 mg PO QHS 10/27/17 pravastatin 40 mg tablet 20 mg PO QHS 10/27/17 venlafaxine ER 37.5 mg 37.5 mg PO DAILY 10/27/17 capsule,extended release 24 hr Cholecalciferol (Vitamin D3) 5,000 unit PO DAILY 12/02/17 [Vitamin D3] Iron Carbonyl [Feosol] 27 mg PO DAILY 12/02/17 busPIRone [Buspar] 10 mg PO DAILY 12/02/17 Cyanocobalamin (Vitamin B-12) 500 mcg SL DAILY 04/30/18 [Vitamin B-12] Losartan/Hydrochlorothiazide 1 each PO DAILY 04/30/18 [Losartan-Hctz 100-25 mg Tab] Omeprazole [Prilosec] 20 mg PO DAILY 04/30/18 Albuterol IH (ProAir) [Proair Hfa] 1 - 2 inh INHALATION Q4H PRN PRN 06/28/18 Surgical History: Surgical History (Last Updated 12/16/17 @ 08:16 by Keke Vasquez) History of incisional hernia repair (Acute) Z98.890, Z87.19 12/09/2017 History of cholecystectomy (Acute) Z98.890, Z90.49 History of tonsillectomy (Acute) Z98.890, Z90.89 History of colonoscopy (Acute) Z98.890 2013 Smoking Status: Current every day smoker Subjective: NOTE (Friday November 23, 2018 04:10 PM) Chief Complaint: Follow up History of Present Illness: This is a 48 Y/O female who was seen and evaluated at our office today as a follow up. Pain: back, bilateral hips, leg Quality: constant but varies in intensity Region: low back, bilateral hips and left leg Severity: 6/10 Timin years ago Aggravated by: no pain Relieved by: no pain Pain score (out of 10): 0/10 Other info: Patient is here for a follow up. States she is starting to get the burning down left leg and a dull ache in right hip and would like to discuss injection. Review of Systems: Patient denies any recent fever, chills, headache, change in weight without trying, vision or hearing problems. No cp, sob, cardenas, pnd, orthopnea, or peripheral edema.They note no lumps or swollen glands, no new ra shes, changing moles, or change in bowel or bladder function. No melena or BRBPR. Mood has been more down. Past Medical History: h/o Acute Gastritis h/o symptomatic varicose veins h/o hypertensive heart disease h/o hypertension h/o migraines h/o anxiety h/o depression h/o obstructive sleep apnea h/o vitamin D deficiency h/o vitamin B12 deficiency h/o hyperlipidemia h/o Psoriasis h/o anemia h/o Arthritis h/o scoliosis h/o asthma s/p hernia repair s/p Cholecystectomy s/p tonsillectomy s/p adenoidectomy s/p Right humeral fx 2015 ([facility]) Family History: ======== Structured Family History ======== Father: Hypercholesterolemia, Coronary artery disease, Hypertension Mother: Hypertension, Anxiety, Hypercholesterolemia Paternal Grandmother: Diabetes mellitus Social History: [Tobacco: Current every day smoker (0 ppd x 0 yrs = 0 pk yrs) Start Date: 02/17/2018 Pipe Smoker: No Cigar Smoker: No Chewing Tobacco User: No Electronic Cigarette User: No] Living situation: Occupation: [employer] Tobacco: Cigarettes EtOH: Rarely Rec. drugs: Denies Allergies: Sulfa drugs, Obdulio inhibitors Medications: 1) atorvastatin 10 mg oral tablet, Take 1 tablet by mouth once daily 2) busPIRone 10 mg oral tablet, One tablet BID 3) Effexor XR 37.5 mg oral capsule, extended release, One tablet daily prn 4) losartan-hydrochlorothiazide 50mg-12.5mg oral tablet, Take 1 tablet by mouth once daily 5) montelukast 10 mg oral tablet, One tablet daily 6) olopatadine 665 mcg/inh nasal spray, 2 sprays each nostril daily 7) potassium chloride 10 mEq oral capsule, extended release, One tablet po prn 8) Singulair 10 mg oral tablet, One tablet daily 9) Vitamin D3 5000 intl units oral capsule, One tablet daily Physical Examination: Wt: 269 lb Ht/Ln: 65 in BMI: 44.8 BP: 133/90 RR: 18 Temp: 97.8F Pain: 3 Well nourished and well developed in no acute distress. Alert and oriented to person, place and time. Affect is normal and appropriate. Mucosa pink and moist. Respirations even and unlabored. Neck is supple without significant lymphadenopathy or thyromegaly. Abdomen soft & non-tender. No HSM or masses appreciated. Extremities show no cyanosis, clubbing, or edema. Gait is Antalgic. Lumbar ROM is limited due to pain much improved Lumbar paraspinal muscle tenderness much improved Bilateral lumbar facet challenge is positive much improved SLR is negative. Motor and sensory exam is unchanged. 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 OARRS was reviewed today. UDS was reviewed and was compliant. SOAPP score is 3 MRI of the lumbar spine was reviewed with the pt today and they appear to understand. There are no signs of diversion or addiction with the pt, there is also no signs of abuse or misuse, continues to do well with their medications without any side effects, we will continue monitoring the pt closely. PEG was reviewed today. Life style modifications were also discussed today and the pt appears to understand. Weight loss was recommended today through diet and exercise. Smoking cessation was discussed today and pt was encouraged Risks and benefits of the above meds were discussed with the pt and they appear to understand. The common side effects of the medications were discussed and all of their questions and concerns were answered and they appear to understand Discussed natural and expected course of this diagnosis and need to alert me if symptoms do not follow expected course, or if any worse. Pt is to continue with her PT and HEP. Pt has tried multiple modalities with no success, we will schedule the pt for a therapeutic/diagnostic bilateral lumbar facet intra articular steroid injection L4-S1 under fluoroscopy We have discussed the risks, benefits as well as alternatives of the procedure and the patient appears to understand and would like to proceed with the above plan. The above plan was discussed today with the pt in details and they appear to understand and agrees to continue with the plan. Assessment/Plan All Active Problems (Last Reviewed 12/16/17 @ 08:14 by Keke Vasquez) History of incisional hernia repair (Acute) Depression (Acute) Anxiety (Acute) Hyperlipidemia (Acute) Asthma (Acute) History of cholecystectomy (Acute) repair of right humerus (Acute) History of tonsillectomy (Acute) History of colonoscopy (Acute) Incisional hernia (Acute) Low grade squamous intraepithelial lesion (LGSIL) on cervical Pap smear (Acute)
[2018-12-13 08:11] VITALS: BP 126/80; PULSE 81; RESP 18; TEMP 37.4; O2SAT 97; BMI 44.1
[2018-12-13 08:17] LABS: Internal QC Validated? YES +Cl - CLEAR BKGD; Pregnancy, Urine Negative Negative
[2018-12-13] MEDS: Bupivacaine 0.25% 30 ML Vial (08:48)
[2018-12-13] MEDS: MethylPREDNISolone Acetate 80 MG/ML Vial (08:49)
[2018-12-13 09:00] VITALS: BP 122/92; BP 126/80; PULSE 82; RESP 16; TEMP 36.8; O2SAT 93
--- NOTE | 2018-12-13 09:00 | RAD_ITS ---
STUDY: X-RAY - LUMBAR SPINE REASON FOR EXAM: Female, 48 years old. Lumbar facet block TECHNIQUE: 3 view(s) of the lumbar spine were obtained. COMPARISON: None FINDINGS: Intraoperative spot fluoroscopy images were obtained. 9 seconds of total fluoroscopy time. Please see performing physician's report for full details RAD/Lumbar Spine 2 or 3 Views IMPRESSION: As above Electronically Signed: Olaf Jeffries DO at 11:36 EDT Tel , Service support ,
--- NOTE | 2018-12-13 09:00 | RAD_ITS ---
STUDY: X-RAY - LUMBAR SPINE REASON FOR EXAM: Female, 48 years old. Right-sided lumbar facet block at L4-S1 TECHNIQUE: 3 view(s) of the lumbar spine were obtained. COMPARISON: None FINDINGS: Intraoperative spot fluoroscopy images during the procedure. Total fluoroscopy time 15.1 seconds. Please see performing physician's report for further details RAD/Lumbar Spine 2 or 3 Views IMPRESSION: As above Electronically Signed: Olaf Jeffries DO at 10:36 EDT Tel , Service support ,
--- NOTE | 2018-12-13 09:04 | OP.PCM_ITS ---
Problem List (1) Degeneration of intervertebral disc of lumbosacral region Status: Chronic (2) Spondylosis of lumbosacral region without myelopathy or radiculopathy Status: Chronic Report of Operation Date of Procedure: 12/13/18 Pre-Operative Diagnosis: Lumbosacral spondylosis, lumbosacral degenerative disc disease, lumbar facet arthropathy Post-Operative Diagnosis: Lumbosacral spondylosis, lumbosacral degenerative disc disease, lumbar facet arthropathy Surgery/Procedure Performed:: Bilateral lumbar facet steroid injection L4, L5, S1 Description of Surgical Findings:: PROCEDURE: Bilateral lumbar facet steroid injection L4, L5, S1 PREOPERATIVE DIAGNOSIS: Lumbosacral spondylosis, lumbosacral degenerative disc disease, and lumbar facet arthropathy POSTOPERATIVE DIAGNOSIS: Lumbosacral spondylosis, lumbosacral degenerative disc disease, and lumbar facet arthropathy ANESTHESIA: MAC COMPLICATIONS: None BLOOD LOSS: Minimal PROCEDURE IN DETAIL: History and physical today was reviewed. Risks and benefits of the procedure were explained. The patient understood, agreed to our procedure, and informed consent was obtained. IV inserted per routine protocol. The patient was taken to the operating room, placed in a prone position with a pillow positioned underneath the abdomen. The lower back area was prepped and draped in a sterile fashion using iodine x3 under fluoroscopic guidance on AP view the L4 through S1 vertebral bodies are visualized under direct visualization fluoroscopy at approximately 25 degree angle starting on the left L4 ending on the right L4 passing through the L5-S1 bilaterally . Skin and subcutaneous tissues were anesthetized with approximately 5 mL of 1% lidocaine using a 25-gauge regular needle. Under direct visualization with fluoroscopy at approximately using a 22-gauge 5-inch spinal needle, the needle was advanced via the skin. The tip of the needle was maneuvered and directed towards the superior and medial gutter of the transverse process at the vicinity of the medial branch. Once the tip of the needle was in contact with the bone, the needle pulled approximately 2 mm off the bone. After negative aspiration of blood with CSF and confirmation of AP as well as oblique view, a total of 12 mL of preservative-free 0.25% Marcaine with 80 mg of Depo- Medrol was injection in divided doses between those 6 levels. The needles were then removed intact. The patient experienced no signs or symptoms intrathecal, intravascular injection. The patient experienced no paraesthesia. The procedure was completed without any apparent difficult, any complication. The patient appeared to tolerate well. ASSESSMENT AND PLAN: This is a 48-year-old female with lumbosacral spondylosis, lumbosacral dege nerative disc disease, and lumbar facet arthropathy, status post bilateral lumbar facet steroid injection L4 through S1. The patient will continue her current medications. The patient will follow in approximately 2 weeks for reevaluation
[2018-12-13 09:05] VITALS: BP 126/80; BP 127/92; PULSE 82; RESP 16; O2SAT 95
[2018-12-13 09:10] VITALS: BP 121/72; BP 126/80; PULSE 80; RESP 16; O2SAT 96
[2018-12-13 09:15] VITALS: BP 126/80; BP 129/87; PULSE 80; RESP 16; TEMP 36.8; O2SAT 93
[2018-12-13 09:30] VITALS: BP 126/80
== END 2018-12-13 09:33 | disposition home or self-care (01) ==
LOC: SDC 07:44 → AC 07:45
PROVIDERS: Family Provider Internal Medicine; PCP Internal Medicine; Referring Provider Anesthesiology Pain Medicine; Visit Provider Anesthesiology Pain Medicine
PROC: 3E0T3BZ Introduction of Anesthetic Agent into Peripheral Nerves and Plexi, Percutaneous Approach (ICD-10-PCS; CPT 64493; principal; 2018-12-13 08:50)
DX: M51.17 Intervertebral disc disorders with radiculopathy, lumbosacral region (principal); M47.27 Other spondylosis with radiculopathy, lumbosacral region; M43.16 Spondylolisthesis, lumbar region; M48.07 Spinal stenosis, lumbosacral region; I10 Essential (primary) hypertension; J45.909 Unspecified asthma, uncomplicated; E78.5 Hyperlipidemia, unspecified; F41.9 Anxiety disorder, unspecified; F32.9 Major depressive disorder, single episode, unspecified; G47.33 Obstructive sleep apnea (adult) (pediatric); E55.9 Vitamin D deficiency, unspecified; M19.90 Unspecified osteoarthritis, unspecified site; K21.9 Gastro-esophageal reflux disease without esophagitis; D64.9 Anemia, unspecified; F17.200 Nicotine dependence, unspecified, uncomplicated; Z79.51 Long term (current) use of inhaled steroids; Z79.899 Other long term (current) drug therapy
CPT/HCPCS: 01922; 64493; 64494; 64495; 64483; 72100; 81025; J7120

== ENCOUNTER → 2018-12-24 | Outpatient (CLI) | payer SELFPAY ==
[2018-12-13 08:11] VITALS: BMI 44.1
--- NOTE | 2018-12-24 12:29 | CT_ITS ---
STUDY: CT CHEST WITHOUT CONTRAST REASON FOR EXAM: Female, 48 years old. Hyperlipidemia RADIATION DOSAGE (If Supplied By Facility): CTDIvol = ( 12.19 ) mGy, DLP = ( 219.42 ) mGycm TECHNIQUE: Transaxial imaging was performed without the administration of intravenous contrast material. Individualized dose optimization techniques were used for this CT. COMPARISON: None. FINDINGS: A limited exam was performed as part of a calcium scoring study. The upper lungs and inferior most lung bases were not imaged. No acute alveolar disease. No pulmonary nodules or masses are seen. Degenerative thoracic spine changes. No pleural or pericardial fluid is visible. Multiple small indeterminate hepatic hypodensities are noted which could be small cysts. Visualized portions of thoracic aorta and pulmonary arteries are intact. CT/Limited Chest CT w/CCTA IMPRESSION: Limited study as described. No pulmonary pathology is visible. Electronically Signed: Percy Dela Cruz MD at 20:54 EDT Tel , Service support ,
[2018-12-24 12:34] VITALS: BP 110/53; PULSE 63; RESP 14; O2SAT 97; BMI 44.1
--- NOTE | 2018-12-24 17:14 | CA.SCORE ---
Calcium Scoring Date of Study:: 12/24/18 Coronary Calcium Scoring: High-resolution Computed Tomographic imaging of the chest was performed on [12/24/2018], with particular attention paid to the coronary arteries. Images from the examination were analyzed for the presence and extent of coronary artery calcification , using coronary calcium quantification software. The patient tolerated the procedure well and there were no complications. The results of the coronary calcification analysis are provided below. - Findings Left Main (LM): 0 Left Anterior Descending (LAD): 0 Left Circumflex (LCX): 0 Right Coronary Artery (RCA): 0 Total Agatston Score: 0 Percentile Rankin - Conclusion Calcium Scoring Interpretation: Calcium Score Interpretation 0 No identifiable atherosclerotic plaque. Very low cardiovascular disease risk. <5% chance of presence coronary artery disease A Negative Examination 1-10 Minimal Plaque burden. Significant coronary artery disease very unlikely. 11-100 Mild plaque burden. Likely mild or minimal coronary atherosclerosis. 101-400 Moderate plaque burden Moderate non-obstructive coronary artery disease highly likely. Over 400 Extensive plaque burden. High likelihood of at least one significant coronary stenosis (>50% diameter) Calcium Score: 0 Negative Examination
== END | disposition home or self-care (01) ==
PROVIDERS: Family Provider Internal Medicine; PCP Internal Medicine; Referring Provider Internal Medicine; Visit Provider Internal Medicine
DX: E78.5 Hyperlipidemia, unspecified (principal)
CPT/HCPCS: 75571; 76380

== ENCOUNTER → 2019-03-07 | Outpatient (CLI) | payer OTHER, SELFPAY ==
[2018-12-24 12:34] VITALS: BMI 44.1
[2019-03-07 07:56] LABS: Absolute Lymphocyte Count 2.86 X10^3/ul (0.83-4.51); Absolute Neutrophil Count 8.5 X10^3/uL (2.0-7.7); Basophil# 0.03 X10^3/uL; Basophil% 0.2 % (0-1); Eosinophils% 1.6 % (0-5); Hematocrit 40.4 % (37-47); Hemoglobin 13.8 g/dl (12.0-15.0); Lymphocyte # 2.86 X10^3/ul (4.0); Lymphocyte % 23.1 % (19-41); Mean Corp Hgb Conc 34.2 g/gl (32-36); Mean Corpuscular Hgb 29.6 pg (27.0-32.0); Mean Corpuscular Volume 86.7 fL (81-99); Mean Platelet Vol. 10.5 fl (6.2-12.0); Monocyte# 0.74 X10^3/uL; Neutrophil # 8.52 X10^3/uL (2.7-7.7); Platelet Count 336 K/mm3 (150-450); RBC Distribution Width SD 47.6 fl (35.1-43.9); Red Blood Count 4.66 M/mm3 (4.2-5.4); White Blood Count 12.4 K/mm3 (4.4-11.0)
[2019-03-07 07:59] LABS: POSITIVE COUNT NO; POSITIVE DIFFERENTIAL NO; POSITIVE MORPHOLOGY NO
[2019-03-07 08:16] LABS: Microalbumin,Random Urine 16.3 mg/L (NO RANGE EST.); Microalbumin:Creatinine Ratio 4.2 mg/g CRE (<30 mg/g CRE)
[2019-03-07 08:20] LABS: ALB/GLOB Ratio 0.9 RATIO (0.9-2.4); AST(SGOT) 14 U/L (15-37); Alanine Aminotransfer ALT/SGPT 17 U/L (13-56); Albumin, Serum 3.4 g/dL (3.2-5.0); Alkaline Phosphatase 106 U/L (45-117); Anion Gap 9 (5-15); BUN 12 mg/dL (7-18); BUN/Creat Ratio 15.9 RATIO (10-20); CRP, High Sensitivity Cardiac 7.18 mg/L; Calcium,Total 8.7 mg/dL (8.5-10.1); Chloride 107 mmol/L (98-107); Cholesterol 163 mg/dL (200); Creatinine, Serum 0.76 mg/dL (0.55-1.02); EST Glomerular Filtration Rate 86 mL/min (>60); Est Glom Filt Rate - Afr Amer 104 mL/min (>60); Globulin 3.9 g/dL (2.2-4.2); Glucose 98 mg/dL (74-106); High Density Lipoprotein 33 mg/dL; Potassium 3.5 mmol/L (3.5-5.1); Protein, Total 7.3 g/dL (6.4-8.2); Sodium Level 142 mmol/L (136-145); Triglycerides 285 mg/dL; Very Low Density Lipoprotein 57 mg/dL (5-40)
[2019-03-07 08:23] LABS: Hemoglobin A1c 5.8 % (4.2-6.3)
== END | disposition home or self-care (01) ==
PROVIDERS: Family Provider Internal Medicine; PCP Internal Medicine; Referring Provider Internal Medicine; Visit Provider Internal Medicine
DX: R79.82 Elevated C-reactive protein (CRP) (principal); K76.0 Fatty (change of) liver, not elsewhere classified; I11.9 Hypertensive heart disease without heart failure; E78.5 Hyperlipidemia, unspecified; R73.01 Impaired fasting glucose
CPT/HCPCS: 36415; 80053; 80061; 82043; 82105; 82570; 83036; 85025; 86141

== ENCOUNTER → 2019-03-30 | Outpatient (CLI) | payer OTHER, SELFPAY ==
[2018-12-24 12:34] VITALS: BMI 44.1
--- NOTE | 2019-03-30 07:40 | US_ITS ---
STUDY: ABDOMINAL ULTRASOUND - RIGHT UPPER QUADRANT REASON FOR VISIT: Female, 48 years old. Fatty liver. TECHNIQUE: Ultrasound evaluation of the right upper quadrant was performed with real-time and static sahu-scale imaging. TECHNICAL QUALITY: Adequate. COMPARISON: Comparison is made with prior study dated October 23, 2017. FINDINGS: Liver: The liver measures 16.2 cm. There is increased echogenicity consistent with fatty infiltration. The bile ducts are within normal limits. There is hepatic color flow. The direction of portal flow is hepatopetal. There is a 1.1 cm x 1.2 cm x 1 cm cyst in the right lobe of the liver. Gallbladder: The patient is status post cholecystectomy. Common Bile Duct (C.B.D.): The common bile duct measures 4.3 mm. Pancreas: Normal size of the head, of the pancreas. Body and tail are obscured due to overlying bowel gas. There is normal echogenicity of the pancreas. There is no demonstrated pancreatic mass or cyst. Right Kidney: Normal size of the right kidney. The right kidney measures 12.7 cm x 5.2 cm x 5.1 cm. Normal renal cortex. The right cortex measures 1.2 cm. There is no demonstrated renal mass or cyst. There is no right hydronephrosis. US/Liver IMPRESSION: Fatty infiltration of the liver. Small cyst in the right lobe of the liver. There has been no change. Electronically Signed: Tray Murphy, at 15:26 EDT , Service support ,
== END | disposition home or self-care (01) ==
PROVIDERS: Family Provider Internal Medicine; PCP Internal Medicine; Referring Provider Internal Medicine; Visit Provider Internal Medicine
DX: K76.0 Fatty (change of) liver, not elsewhere classified (principal)
CPT/HCPCS: 76705

== ENCOUNTER 2019-04-18 07:44 | Day surgery (SDC) | payer OTHER, SELFPAY ==
[2018-12-24 12:34] VITALS: BMI 44.1
[2019-04-18 08:06] VITALS: BP 129/67; PULSE 75; RESP 16; TEMP 36.4; O2SAT 99; BMI 45.2
[2019-04-18 08:10] LABS: Internal QC Validated? YES +Cl - CLEAR BKGD; Pregnancy, Urine Negative Negative
--- NOTE | 2019-04-18 09:00 | RAD_ITS ---
STUDY: X-RAY - LUMBAR SPINE REASON FOR EXAM: Female, 48 years old. Radiofrequency ablation. TECHNIQUE: 8 fluoroscopic images of the lumbar spine were obtained. COMPARISON: None FINDINGS: Intraoperative imaging provided for left L3-S1 radio frequency ablation. RAD/Lumbar Spine 2 or 3 Views IMPRESSION: Intraoperative imaging provided for left L3-S1 radiofrequency ablation. Electronically Signed: Tray Murphy, at 9:21 EDT , Service support ,
[2019-04-18] MEDS: Bupivacaine 0.25% 30 ML Vial (09:06)
[2019-04-18] MEDS: MethylPREDNISolone Acetate 80 MG/ML Vial (09:07)
[2019-04-18 09:22] VITALS: BP 100/66; BP 129/67; PULSE 75; RESP 16; TEMP 36.1; O2SAT 96
[2019-04-18 09:25] VITALS: BP 104/60; BP 129/67; PULSE 79; RESP 16; O2SAT 100
[2019-04-18 09:30] VITALS: BP 114/65; BP 129/67; PULSE 77; RESP 16; O2SAT 96
[2019-04-18 09:33] VITALS: BP 106/62; BP 129/67; PULSE 68; RESP 16; TEMP 36.2; O2SAT 100
[2019-04-18 09:42] VITALS: BP 129/67
--- NOTE | 2019-04-18 17:23 | PCM.OPRPT ---
Problem List (1) Degeneration of intervertebral disc of lumbosacral region Status: Chronic (2) Spondylosis of lumbosacral region without myelopathy or radiculopathy Status: Chronic Report of Operation Date of Procedure: 04/18/19 Pre-Operative Diagnosis: Lumbosacral spondylosis, lumbosacral degenerative disc disease, lumbar facet arthropathy Post-Operative Diagnosis: Lumbar sacral spondylosis, lumbar sacral degenerative disc disease, lumbar facet arthropathy Surgery/Procedure Performed:: Right sided lumbar radio frequency ablation of the medial branch at L3, L4, L5, S1 Description of Surgical Findings:: PROCEDURE: Right-sided lumbar radiofrequency ablation of the medial branch L3, L4, L5, S1 PREOPERATIVE DIAGNOSES: Lumbosacral spondylosis, lumbosacral degenerative disc disease, lumbar facet arthropathy POSTOPERATIVE DIAGNOSES: Lumbosacral spondylosis, lumbosacral degenerative disc disease, lumbar facet arthropathy ANESTHESIA: MAC COMPLICATIONS: None BLOOD LOSS: Minimal PROCEDURE IN DETAIL: History and physical today was reviewed. Risks and benefits of procedure explained. The patient understood, agreed to the procedure and informed consent was obtained. IV inserted per routine protocol. The patient was taken to the operating room, placed in the prone position with a pillow positioned underneath the abdomen. The right side of the lower back was prepped and draped in a sterile fashion using iodine x 3. Under fluoroscopy guidance, on an oblique view, the L3 through S1 vertebral bodies were visualized. The skin and subcutaneous tissue was anesthetized with approximately 10 mL of 1% lidocaine using a 25-gauge regular needle. Under direct visualization with fluoroscopy at approximately 25-degree angle, starting on the right L3, ending on the right S1 passing through the L4-L5 using a 20-gauge 15 cm with a 10 mm curved active tip radiofrequency ablation needle the needle passed through the skin. The tip of the needle was maneuvered and directed towards the superior and medial gutter of the transverse process at the vicinity of the medial branch. Once the tip of the needle was in contact with the bone, the needle pulled approximately 2 mm up the bone. The stylet of each needle was then removed. After negative aspiration of blood with CSF and confirmation of AP as well as oblique view, radiofrequency ablation probe was then inserted at each level. Impedance was then recorded at L3 to be 240, at L4 267, at L5 241, at S1 320 ohm. Motor-evoked potential was then initiated to 1.5 volt without any motor response at each corresponding level. The probe was then removed intact and a total of 6 mL preservative-free 1% lidocaine was injected in divided doses between those 4 levels after negative aspiration of blood with CSF. The radiofrequency ablation probe was then reinserted after confirmation of AP, oblique as well as lateral view. Radiofrequency ablation was then initiated to 80 degrees Celsius for 90 seconds at each level. Once concluded, the probe was then removed intact and a total of 6 mL of preservative-free 0.25% Marcaine with 40 mg Depo-Medrol was injected in divided doses between those 4 levels. The needles were then removed intact. The patient experienced no signs or symptoms of intrathecal, intravascular injection. The patient experienced no paraesthesia. The procedure was completed without any apparent difficulty, any complication. The patient appeared to tolerate well. Sensory as well as motor exam was unchanged from prior to procedure. ASSESSMENT AND PLAN: This is a 48-year-old female with lumbosacral spondylosis, lumbosacral degenerative disc disease, lumbar facet arthropathy, status post right-sided radiofrequency ablation of the medial branch L3 through S1. The patient will continue her current medications. The patient will follow up in approximately 2 weeks for reevaluation.
== END 2019-04-18 09:56 | disposition home or self-care (01) ==
LOC: SDC 07:46 → AC 07:46
PROVIDERS: Anesthesiology; Family Provider Internal Medicine; PCP Internal Medicine; Referring Provider Anesthesiology Pain Medicine; Visit Provider Anesthesiology Pain Medicine
PROC: (CPT 64635; principal; 2019-04-18 08:55)
DX: M47.817 Spondylosis without myelopathy or radiculopathy, lumbosacral region (principal); M51.17 Intervertebral disc disorders with radiculopathy, lumbosacral region; M46.96 Unspecified inflammatory spondylopathy, lumbar region; M43.16 Spondylolisthesis, lumbar region; M48.07 Spinal stenosis, lumbosacral region; I11.9 Hypertensive heart disease without heart failure; F41.9 Anxiety disorder, unspecified; F32.9 Major depressive disorder, single episode, unspecified; G47.33 Obstructive sleep apnea (adult) (pediatric); E55.9 Vitamin D deficiency, unspecified; E78.5 Hyperlipidemia, unspecified; D64.9 Anemia, unspecified; J45.909 Unspecified asthma, uncomplicated; K21.9 Gastro-esophageal reflux disease without esophagitis; F17.200 Nicotine dependence, unspecified, uncomplicated; M19.90 Unspecified osteoarthritis, unspecified site; Z79.891 Long term (current) use of opiate analgesic; Z79.899 Other long term (current) drug therapy
CPT/HCPCS: 01936; 64635; 64636 ×2; 72100; 76000; 81025; J7120

== ENCOUNTER → 2019-06-20 | Outpatient (CLI) | payer OTHER, SELFPAY ==
[2018-12-24 12:34] VITALS: BMI 44.1
--- NOTE | 2019-06-20 07:35 | BI_ITS ---
MAMMOGRAPHY - BILATERAL SCREENING 3-D TOMOSYNTHESIS REASON FOR EXAM: Female, 48 years old. Screening PERTINENT HISTORY: No significant family history. BILATERAL DIGITAL MAMMOGRAM WITH TOMOSYNTHESIS: Mediolateraloblique and craniocaudal views demonstrate no evidence of dominant parenchymal masses. No cluster of microcalcification or architectural distortion is seen. No evidence of skin thickening. No significant change since 06/17/2018 . Breast Density: There are scattered areas of fibroglandular density. CAD was used to assist in final assessment. IMPRESSION: NORMAL MAMMOGRAM BILATERALLY. FINAL ASSESSMENT: BIRAD 1 (NEGATIVE) YEARLY MAMMOGRAM RECOMMENDED Approximately 10% of breast cancers are not detected by mammography. A normal mammogram should not delay biopsy of a clinically suspicious abnormality. Electronically Signed: Mario Melo, at 10:22 EDT Tel , Service support , BI/SCREEN MAMM (CAD) W/CASEY JEROME
== END | disposition home or self-care (01) ==
LOC: OPBI 07:34
PROVIDERS: Family Provider Internal Medicine; PCP Internal Medicine; Referring Provider Internal Medicine; Visit Provider Internal Medicine
DX: Z12.31 Encounter for screening mammogram for malignant neoplasm of breast (principal)
CPT/HCPCS: 77063; 77067

== ENCOUNTER → 2019-06-28 | Outpatient (CLI) | payer OTHER, SELFPAY ==
[2019-06-28 10:16] LABS: Absolute Lymphocyte Count 2.66 X10^3/uL (0.83-4.51); Absolute Neutrophil Count 8.4 X10^3/uL (2.0-7.7); Basophil# 0.05 X10^3/uL; Basophil% 0.4 % (0-1); Eosinophil# 0.14 X10^3/uL; Eosinophils% 1.2 % (0-5); Hematocrit 40.5 % (37-47); Hemoglobin 12.9 g/dL (12.0-15.0); Lymphocyte # 2.66 X10^3/ul (4.0); Lymphocyte % 22.3 % (19-41); Mean Corp Hgb Conc 31.9 g/dL (32-36); Mean Corpuscular Hgb 27.7 pg (27.0-32.0); Mean Corpuscular Volume 86.9 fL (81-99); Mean Platelet Vol. 10.6 fl (6.2-12.0); Monocyte# 0.63 X10^3/uL; Monocyte% 5.3 % (0-10); NRBC Flagged by Analyzer 0 % (0-5); Neutrophil # 8.39 X10^3/uL (2.7-7.7); Neutrophil % 70.5 % (47-70); Platelet Count 334 K/mm3 (150-450); RBC Distribution Width CV 14.6 % (11.6-14.6); RBC Distribution Width SD 46.6 fl (35.1-43.9); Red Blood Count 4.66 M/mm3 (4.2-5.4); White Blood Count 11.9 K/mm3 (4.4-11.0)
[2019-06-28 10:33] LABS: Hemoglobin A1c 5.6 % (4.2-6.3)
[2019-06-28 10:46] LABS: Vitamin B12 505 pg/mL (211-911)
[2019-06-28 10:51] LABS: ALB/GLOB Ratio 0.9 RATIO (0.9-2.4); AST(SGOT) 19 U/L (15-37); Alanine Aminotransfer ALT/SGPT 21 U/L (13-56); Albumin, Serum 3.6 g/dL (3.2-5.0); Alkaline Phosphatase 134 U/L (45-117); Anion Gap 6 (5-15); BUN 8 mg/dL (7-18); BUN/Creat Ratio 10.9 RATIO (10-20); CRP, High Sensitivity Cardiac 7.81 mg/L; Chloride 104 mmol/L (98-107); Cholesterol 176 mg/dL (200); Creatinine, Serum 0.73 mg/dL (0.55-1.02); EST Glomerular Filtration Rate 89 mL/min (>60); Est Glom Filt Rate - Afr Amer 108 mL/min (>60); Glucose 94 mg/dL (74-106); High Density Lipoprotein 36 mg/dL; Potassium 3.6 mmol/L (3.5-5.1); Protein, Total 7.6 g/dL (6.4-8.2); Sodium Level 140 mmol/L (136-145); Triglycerides 255 mg/dL; Very Low Density Lipoprotein 51 mg/dL (5-40)
== END | disposition home or self-care (01) ==
LOC: LAB.FUTURE 09:59
PROVIDERS: Family Provider Internal Medicine; PCP Internal Medicine; Referring Provider Internal Medicine; Visit Provider Internal Medicine
DX: E78.5 Hyperlipidemia, unspecified (principal); R73.01 Impaired fasting glucose; E53.8 Deficiency of other specified B group vitamins; R79.82 Elevated C-reactive protein (CRP)
CPT/HCPCS: 36415; 80053; 80061; 82607; 83036; 85025; 86141

== ENCOUNTER → 2019-07-12 | Outpatient (CLI) | payer OTHER, SELFPAY ==
--- NOTE | 2019-07-12 07:06 | CT_ITS ---
STUDY: CT ABDOMEN AND PELVIS WITH AND WITHOUT CONTRAST REASON FOR EXAM: Female, 48 years old. Hematuria. Nausea. Dark urine. History of hernia repair cholecystectomy and hypertension. RADIATION DOSAGE (If Supplied By Facility): CTDIvol = ( 33.18 ) mGy, DLP = ( 4309.38 ) mGycm TECHNIQUE: Transaxial images were obtained from the dome of the diaphragm to the symphysis pubis without oral contrast. IV Isovue 300 100 was administered. Sagittal and coronal images were reconstructed. Individualized dose optimization techniques were used for this CT. COMPARISON: March 16, 2017. FINDINGS: There is minimal triangular shaped soft tissue density in the right middle lobe seen on the initial image reveals scarring or atelectasis along the lower oblique fissure.. The lungs are otherwise clear. The visualized portions of the heart are within normal limits. The liver is of normal size, contour and density. There are multiple small fluid density masses consistent with cysts. The largest, adjacent to the gallbladder fossa, measures 1.2 cm in diameter. There is no enhancing hepatic mass. The gallbladder is not visualized and thought to be surgically absent. Normal biliary ductal system. Normal spleen. Normal pancreas. Normal bilateral adrenal glands. Normal right kidney. Normal left kidney. Normal bilateral ureters. Normal visualized stomach. Normal small intestine. Normal colon. The appendix is visualized and appears normal. There is very minimal atherosclerotic changes of the lower abdominal aorta and iliac arteries without dissection or aneurysm. Normal inferior vena cava. Normal retroperitoneum. The urinary bladder is poorly distended but grossly normal. The uterus is globular in contour with what appears to be a posterior fundal fibroid. Small follicles are seen in both ovaries. There is no pelvic lymphadenopathy. No free air or free fluid is seen within the peritoneal cavity. Normal abdominal wall. This been interval repair of the umbilical hernia seen on the prior study. There are diffuse degenerative changes of the visualized lumbar spine. CT/CT Abd/Pelvis W/WO Contrast IMPRESSION: 1. No visualized renal, ureteral or urinary bladder abnormality. 2. Stable hepatic cysts. 3. Linear scarring versus small triangular mass in the right middle lobe this was not present on the previous study. 4. Stable posterior uterine fibroid. 5. No other major interval change. Electronically Signed: Alonso Clement DO at 16:56 EDT Tel [phone], Service support ,
== END | disposition home or self-care (01) ==
LOC: CT 06:56
PROVIDERS: Family Provider Internal Medicine; PCP Internal Medicine; Referring Provider Internal Medicine; Visit Provider Internal Medicine
DX: R31.9 Hematuria, unspecified (principal)
CPT/HCPCS: 74178; Q9967

== ENCOUNTER → 2019-08-03 06:51 | Outpatient (CLI) | payer OTHER, SELFPAY ==
--- NOTE | 2019-08-03 06:53 | CT_ITS ---
STUDY: CT CHEST WITH CONTRAST REASON FOR EXAM: Female, 49 years old. Possible right middle lobe density. RADIATION DOSAGE (If Supplied By Facility): CTDIvol = ( 15.05 ) mGy, DLP = ( 659.35 ) mGycm TECHNIQUE: Transaxial imaging was performed following intravenous administration of IV Isovue 370 100. Multiplanar coronal and sagittal images were reformatted. Individualized dose optimization techniques were used for this CT. COMPARISON: Comparison is made with prior CT scan of the thorax dated December 24, [address] scan of the abdomen and pelvis dated July 12, 2019. FINDINGS: Small benign appearing bilateral axillary lymph nodes. The lungs are normal. There is no demonstrated pleural abnormality. Normal heart and pericardium. Normal mediastinum. Normal hilar regions. Normal enhanced pulmonary arteries. Normal aorta arch and descending thoracic aorta. There are multi-level degenerative changes of the thoracic spine. Dextroscoliosis. Fatty infiltration of the liver. Small hepatic cysts. CT/Chest WITH Contrast IMPRESSION: No pulmonary masses seen. Fatty infiltration of the liver. Hepatic cysts. Electronically Signed: Tray Murphy, at 13:57 EST , Service support ,
== END ==
PROVIDERS: Family Provider Internal Medicine; PCP Internal Medicine; Referring Provider Internal Medicine; Visit Provider Internal Medicine
DX: R93.5 Abnormal findings on diagnostic imaging of other abdominal regions, including retroperitoneum (principal)
CPT/HCPCS: 71260; Q9967

== ENCOUNTER → 2019-10-05 10:20 | Outpatient (CLI) | payer BC, SELFPAY ==
[2019-10-05 12:39] LABS: Absolute Neutrophil Count 8.5 X10^3/uL (2.0-7.7); Basophil# 0.04 X10^3/uL; Basophil% 0.3 % (0-1); Eosinophil# 0.12 X10^3/uL; Hematocrit 43.7 % (37-47); Hemoglobin 13.9 g/dL (12.0-15.0); Lymphocyte % 21.5 % (19-41); Mean Corp Hgb Conc 31.8 g/dL (32-36); Mean Corpuscular Hgb 27.4 pg (27.0-32.0); Mean Corpuscular Volume 86.2 fL (81-99); Monocyte# 0.78 X10^3/uL; Monocyte% 6.5 % (0-10); NRBC Flagged by Analyzer 0 % (0-5); Neutrophil % 70.4 % (47-70); Platelet Count 319 K/mm3 (150-450); RBC Distribution Width CV 15.1 % (11.6-14.6); RBC Distribution Width SD 47.4 fl (35.1-43.9); Red Blood Count 5.07 M/mm3 (4.2-5.4); White Blood Count 12.1 K/mm3 (4.4-11.0)
[2019-10-05 13:03] LABS: ALB/GLOB Ratio 0.9 RATIO (0.9-2.4); AST(SGOT) 12 U/L (15-37); Alanine Aminotransfer ALT/SGPT 18 U/L (13-56); Albumin, Serum 3.6 g/dL (3.2-5.0); Alkaline Phosphatase 106 U/L (45-117); Anion Gap 4 (5-15); BUN 10 mg/dL (7-18); BUN/Creat Ratio 12.1 RATIO (10-20); Calcium,Total 8.9 mg/dL (8.5-10.1); Chloride 107 mmol/L (98-107); Cholesterol 177 mg/dL (200); Creatinine, Serum 0.82 mg/dL (0.55-1.02); EST Glomerular Filtration Rate 78 mL/min (>60); Est Glom Filt Rate - Afr Amer 94 mL/min (>60); Glucose 73 mg/dL (74-106); High Density Lipoprotein 35 mg/dL; Potassium 4.1 mmol/L (3.5-5.1); Protein, Total 7.6 g/dL (6.4-8.2); Sodium Level 138 mmol/L (136-145); Triglycerides 168 mg/dL; Very Low Density Lipoprotein 34 mg/dL (5-40)
[2019-10-05 13:05] LABS: Hemoglobin A1c 5.6 % (4.2-6.3)
== END ==
PROVIDERS: PCP Internal Medicine; Referring Provider Internal Medicine; Visit Provider Internal Medicine
DX: R11.0 Nausea (principal); E55.9 Vitamin D deficiency, unspecified; R74.8 Abnormal levels of other serum enzymes; I10 Essential (primary) hypertension; R73.09 Other abnormal glucose; E78.2 Mixed hyperlipidemia
CPT/HCPCS: 36415; 80053; 80061; 83036; 85025

== ENCOUNTER → 2020-02-14 | Outpatient (CLI) | payer BC, SELFPAY ==
[2020-02-14 10:11] LABS: Absolute Lymphocyte Count 2.42 X10^3/uL (0.83-4.51); Absolute Neutrophil Count 10.3 X10^3/uL (2.0-7.7); Basophil# 0.05 X10^3/uL; Basophil% 0.4 % (0-1); Eosinophil# 0.24 X10^3/uL; Eosinophils% 1.7 % (0-5); Hemoglobin 13.8 g/dL (12.0-15.0); Lymphocyte # 2.42 X10^3/ul (4.0); Lymphocyte % 17.6 % (19-41); Mean Corp Hgb Conc 31.4 g/dL (32-36); Mean Corpuscular Hgb 28.2 pg (27.0-32.0); Mean Corpuscular Volume 89.8 fL (81-99); Mean Platelet Vol. 10.8 fl (6.2-12.0); Monocyte# 0.67 X10^3/uL; Monocyte% 4.9 % (0-10); NRBC Flagged by Analyzer 0 % (0-5); Neutrophil # 10.27 X10^3/uL (2.7-7.7); Neutrophil % 74.9 % (47-70); Platelet Count 332 K/mm3 (150-450); RBC Distribution Width CV 14.2 % (11.6-14.6); White Blood Count 13.7 K/mm3 (4.4-11.0)
[2020-02-14 10:41] LABS: AST(SGOT) 14 U/L (15-37); Alanine Aminotransfer ALT/SGPT 19 U/L (13-56); Albumin, Serum 3.5 g/dL (3.2-5.0); Alkaline Phosphatase 104 U/L (45-117); Bilirubin, Direct 0.17 mg/dL (0.00-0.30); Protein, Total 7.5 g/dL (6.4-8.2)
== END | disposition home or self-care (01) ==
LOC: LAB 09:23
PROVIDERS: PCP Internal Medicine; Referring Provider Dermatology; Visit Provider Dermatology
DX: B35.1 Tinea unguium (principal); K13.0 Diseases of lips; D22.5 Melanocytic nevi of trunk; L57.8 Other skin changes due to chronic exposure to nonionizing radiation
CPT/HCPCS: 36415; 80076; 85025

== ENCOUNTER 2020-02-27 07:28 | Day surgery (SDC) | payer BC, SELFPAY ==
[2020-02-27 07:48] LABS: Internal QC Validated? YES +Cl - CLEAR BKGD
[2020-02-27 07:49] LABS: Pregnancy, Urine Negative Negative
[2020-02-27 07:50] VITALS: BP 128/83; PULSE 77; RESP 16; TEMP 36.8; O2SAT 95; BMI 46.9
[2020-02-27] MEDS: Lactated Ringers 1,000 ML 100 ML IV (08:00)
--- NOTE | 2020-02-27 08:30 | RAD_ITS ---
PROCEDURE: Left L3-S1 facet joint block. DATE OF EXAMINATION: February 27, 2020. INDICATION: Female, 49 years old. Left back pain. FLUOROSCOPY TIME (if supplied): (16 seconds) minutes/seconds. 4 intraoperative views were obtained. Intraoperative imaging provided for left L3-S1 facet joint block. RAD/L/S Spine Min 4 Views IMPRESSION: Intraoperative imaging provided for left L3-S1 facet joint block. Electronically Signed: Tray Murphy, at 13:57 EDT , Service support ,
[2020-02-27] MEDS: Bupivacaine 0.25% 30 ML Vial (08:35)
[2020-02-27] MEDS: MethylPREDNISolone Acetate 80 MG/ML Vial (08:35)
[2020-02-27 08:45] VITALS: BP 115/74; BP 128/83; PULSE 76; RESP 16; TEMP 36.6; O2SAT 95
[2020-02-27 08:50] VITALS: BP 115/77; BP 128/83; PULSE 75; RESP 16; O2SAT 93
[2020-02-27 08:55] VITALS: BP 115/71; BP 128/83; PULSE 75; RESP 16; O2SAT 93
[2020-02-27 09:00] VITALS: BP 104/72; BP 128/83; PULSE 80; RESP 16; TEMP 36.5; O2SAT 98
[2020-02-27 09:25] VITALS: BP 128/83
--- NOTE | 2020-02-27 09:29 | OP.PCM_ITS ---
Report of Operation Date of Procedure: 02/27/20 Description of Surgical Findings:: PREOPERATIVE DIAGNOSIS: Lumbosacral spondylosis, lumbosacral degenerative disc disease, lumbar facet arthropathy POSTOPERATIVE DIAGNOSIS: Lumbosacral spondylosis, lumbosacral degenerative disc disease, lumbar facet arthropathy PROCEDURE PERFORMED: Left-sided lumbar facet steroid injection, L3, L4, L5, and S1. ANESTHESIA: MAC. BLOOD LOSS: Minimal. COMPLICATIONS: None. DESCRIPTION OF PROCEDURE: History and physical of today was reviewed. Risks and benefits of the procedure were explained. The patient understood and agreed to proceed. Informed consent was obtained. IV inserted per routine protocol. The patient was taken to the operating room and placed in the prone position with a pillow positioned underneath the abdomen. The left side of her lower back was prepped and draped in a sterile fashion using iodine x3. Under fluoroscopy on oblique view, the L3 through S1 vertebral bodies were visualized. The skin and subcutaneous tissue was anesthetized with approximately 5 mL of 1% lidocaine using a 25-gauge regular needle. Under direct visualization with fluoroscopy, at approximately 25-degree angle starting on the left L3, ending on the left S1, passing through the L4 and L5, using a 22-gauge 3-1/2-inch spinal needle, the needle was advanced via the skin. The tip of the needle was maneuvered and directed towards the superior medial gutter of the transverse process at the vicinity of the medial branch. Once tip of the needle was in contact with the bone, the needle was pulled approximately 2 mm off the bone. A fter negative aspiration of blood or CSF and confirmation on AP as well as oblique view, a total of 8 mL of preservative-free 0.25% Marcaine with 80 mg of Depo-Medrol was injected in divided doses between those four levels. The needles were then removed intact. The patient experienced no sign or symptoms of intrathecal or intravascular injection. The patient experienced no paresthesia. The procedure was completed without any apparent difficulty or any complications. The patient appeared to tolerate it well. ASSESSMENT AND PLAN: This is a 49-year-old female with lumbosacral spondylosis, lumbosacral degenerative disc disease, lumbar facet arthropathy status post left-sided lumbar facet steroid injection L3-S1, patient will continue her current medications, patient will follow approximately 2 weeks for reevaluation.
== END 2020-02-27 09:25 | disposition home or self-care (01) ==
LOC: SDC 07:29 → AC 07:30
PROVIDERS: PCP Internal Medicine; Visit Provider Anesthesiology Pain Medicine
PROC: 3E0T3BZ Introduction of Anesthetic Agent into Peripheral Nerves and Plexi, Percutaneous Approach (ICD-10-PCS; CPT 64493; principal; 2020-02-27 08:45)
DX: M51.17 Intervertebral disc disorders with radiculopathy, lumbosacral region (principal); M47.27 Other spondylosis with radiculopathy, lumbosacral region; M43.16 Spondylolisthesis, lumbar region; M48.07 Spinal stenosis, lumbosacral region; I11.9 Hypertensive heart disease without heart failure; F41.9 Anxiety disorder, unspecified; F32.9 Major depressive disorder, single episode, unspecified; G47.33 Obstructive sleep apnea (adult) (pediatric); E78.5 Hyperlipidemia, unspecified; D64.9 Anemia, unspecified; E55.9 Vitamin D deficiency, unspecified; J45.909 Unspecified asthma, uncomplicated; K21.9 Gastro-esophageal reflux disease without esophagitis; F17.200 Nicotine dependence, unspecified, uncomplicated; Z79.891 Long term (current) use of opiate analgesic; Z79.899 Other long term (current) drug therapy
CPT/HCPCS: 64493; 64494; 64483; 72110; 81025; J7120

== ENCOUNTER → 2020-04-25 | Outpatient (CLI) | payer BC, SELFPAY ==
--- NOTE | 2020-04-25 15:29 | NEURO ---
NCS and/or EMG Patient Report Ordering Doctor: Del Chavez DATE OF SERVICE: 04/25/20 Tyson Irizarry presents for electrodiagnostic testing of the upper limbs. She reports pain in the right wrist and numbness to the lateral aspect of the left arm, primarily when she is laying on it. Electrodiagnostic findings: Median motor nerve demonstrates normal distal latency, amplitude and conduction velocity bilaterally. Normal ulnar motor response bilaterally, including conduction across the elbow. Normal median ulnar F waves. Sensory responses are within normal limits. On needle EMG, all muscles tested in the upper limbs as well as the cervical paraspinals, showed no evidence of denervation with normal motor unit action potentials. Electrodiagnostic assessment: This a normal electrodiagnostic study of the upper limbs. There is no electrodiagnostic evidence for peripheral neuropathy, including carpal tunnel or cubital tunnel syndrome. There is no electrodiagnostic evidence for cervical radiculopathy. If there are any further questions, please do not hesitate to contact me.
== END | disposition home or self-care (01) ==
LOC: PSN 14:26
PROVIDERS: PCP Internal Medicine; Referring Provider Orthopaedic Surgery; Visit Provider Orthopaedic Surgery
DX: R20.2 Paresthesia of skin (principal)
CPT/HCPCS: 95886; 95913

== ENCOUNTER 2020-04-30 08:15 | Day surgery (SDC) | payer BC, SELFPAY ==
--- NOTE | 2020-04-30 08:01 | HP_ITS ---
follow up for low back and hips HPI This is a 49 Y/O female who was seen and evaluated at our office today as a follow up. Pain: lower back and svitlana hips Quality: constant but varies in intensity Region: Pain in the lower back radiates into the svitlana hips. Severity: dull-intense aching Timin+ years ago Aggravated by: standing Relieved by: resting Pain score (out of 10): 2/10 Other info: Patient is here for a follow up. Reports pain in lower right side back and stiff upper back at bra line, states she also has been getting muscle spasms in upper left thoracic. States pain is dull with occasional sharp/stabbing. States pain is more constant but varies in intensity and is hard for her to stand for long periods, she would like to discuss RFA for her left side. ROS Patient denies any recent fever, chills, headache, change in weight without trying, vision or hearing problems. No cp, sob, cardenas, pnd, orthopnea, or peripheral edema.They note no lumps or swollen glands, no new rashes, changing moles, or change in bowel or bladder function.Mood has been stable. PMH h/o Acute Gastritis h/o symptomatic varicose veins h/o hypertensive heart disease h/o hypertension h/o migraines h/o anxiety h/o depression h/o obstructive sleep apnea h/o vitamin D deficiency h/o vitamin B12 deficiency h/o hyperlipidemia h/o Psoriasis h/o anemia h/o Arthritis h/o scoliosis h/o asthma s/p hernia repair s/p Cholecystectomy s/p tonsillectomy s/p adenoidectomy s/p Right humeral fx 2015 ([facility]) SH [Tobacco: Current every day smoker (0 ppd x 0 yrs = 0 pk yrs) Start Date: 02/17/2018 Pipe Smoker: No Cigar Smoker: No Chewing Tobacco User: No Electronic Cigarette User: No] Living situation: Occupation: [employer] Tobacco: Cigarettes EtOH: Rarely Rec. drugs: Denies FH ======== Structured Family History ======== Father: Hypercholesterolemia, Coronary artery disease, Hypertension Mother: Hypertension, Anxiety, Hypercholesterolemia Paternal Grandmother: Diabetes mellitus Allergies Sulfa drugs, Obdulio inhibitors Meds 1) atorvastatin 10 mg oral tablet, Take 1 tablet by mouth once daily 2) busPIRone 10 mg oral tablet, One tablet BID 3) CoQ10 ST-100 Oral Capsule SOFTGEL(S), Take 1 tablet by mouth once daily 4) Effexor XR 37.5 mg oral capsule, extended release, One tablet daily prn 5) ferrous sulfate 325 mg (65 mg elemental iron) oral tablet, Take 1 tablet by mouth once daily 6) LamISIL AT 1% topical cream 7) Lamisil oral , 7 days out of the month 8) losartan-hydrochlorothiazide 50mg-12.5mg oral tablet, Take 1 tablet by mouth once daily 9) montelukast 10 mg oral tablet, One tablet daily 10) olopatadine 665 mcg/inh nasal spray, 2 sprays each nostril daily 11) potassium chloride 10 mEq oral capsule, extended release, One tablet po prn 12) Singulair 10 mg oral tablet, One tablet daily 13) Vitamin B12 2500 mcg sublingual tablet, Take 2 tablet by mouth once daily 14) Vitamin D3 5000 intl units oral capsule, One tablet daily Vitals Wt: 284 lb Ht/Ln: 65 in BMI: 47.3 BP: 116/85 Pulse: 87 RR: 16 Temp: 98.4F Pain: 2 PE Well nourished and well developed in no acute distress. Alert and oriented to person, place and time. Affect is normal and appropriate. Mucosa pink and moist. Respirations even and unlabored. Neck is supple without significant lymphadenopathy or thyromegaly. Abdomen soft & non-tender. No HSM or masses appreciated. Extremities show no cyanosis, clubbing, or edema. Gait is Antalgic. Lumbar ROM is limited due to pain Lumbar paraspinal muscle tenderness Bilateral lumbar facet challenge is positive SLR is negative. Motor and sensory exam is unchanged. 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 OARRS was reviewed today. UDS was reviewed and was compliant. SOAPP score is 3 MRI of the lumbar spine was reviewed with the pt today and they appear to understand. There are no signs of diversion or addiction with the pt, there is also no signs of abuse or misuse, continues to do well with their medications without any side effects, we will continue monitoring the pt closely. PEG was reviewed today. Life style modifications were also discussed today and the pt appears to understand. Weight loss was recommended today through diet and exercise. Smoking cessation was discussed today and pt was encouraged Risks and benefits of the above meds were discussed with the pt and they appear to understand. The common side effects of the medications were discussed and all of their questions and concerns were answered and they appear to understand Discussed natural and expected course of this diagnosis and need to alert me if symptoms do not follow expected course, or if any worse. Pt is to continue with her PT and HEP. Pt has tried multiple modalities , we will schedule the pt for a left lumbar radio frequency ablation L3-S1 under fluoroscopy as the pt has had excellent relief from facet injections in this region in the past however, the relief is now short lived. We have discussed the risks, benefits as well as alternatives of the procedure and the patient appears to understand and would like to proceed with the above plan. The above plan was discussed today with the pt in details and they appear to understand and agrees to continue with the plan.
[2020-04-30 08:58] VITALS: BP 145/88; PULSE 83; RESP 16; TEMP 36.5; O2SAT 97; BMI 47.3
[2020-04-30] MEDS: Lactated Ringers 1,000 ML 100 ML IV (09:09)
--- NOTE | 2020-04-30 09:30 | RAD_ITS ---
STUDY: X-RAY - LUMBAR SPINE REASON FOR EXAM: Female, 49 years old. BLOCK, MEDIAL BRANHG WITHOUT STEROID, L3-S1 LEFT TECHNIQUE: 4 intraoperative view(s) of the lumbar spine were obtained. COMPARISON: None FINDINGS: 4 limited intraoperative films were performed as the patient has undergone left L3-S1 nerve block. RAD/Lumbar Spine 2 or 3 Views IMPRESSION: Left L3-S1 nerve root block Electronically Signed: Garfield Duggan MD at 15:22 EDT , Service support ,
[2020-04-30 09:31] LABS: Internal QC Validated? YES +Cl - CLEAR BKGD; Pregnancy, Urine Negative Negative
[2020-04-30] MEDS: Bupivacaine 0.25% 30 ML Vial (09:42)
[2020-04-30 10:03] VITALS: BP 124/67; BP 145/88; PULSE 77; RESP 16; TEMP 37.1; O2SAT 99
--- NOTE | 2020-04-30 10:08 | OP.PCM_ITS ---
Report of Operation Date of Procedure: 04/30/20 Description of Surgical Findings:: PREOPERATIVE DIAGNOSIS: Lumbosacral spondylosis, lumbosacral degenerative disc disease, lumbar facet arthropathy POSTOPERATIVE DIAGNOSIS: Lumbosacral spondylosis, lumbosacral degenerative disc disease, lumbar facet arthropathy PROCEDURE PERFORMED: Diagnostic left-sided lumbar medial branch injection, L3, L4, L5, and S1. ANESTHESIA: Local. BLOOD LOSS: Minimal. COMPLICATIONS: None. Preoperative pain score 5/10 postop pain score 0/10 DESCRIPTION OF PROCEDURE: History and physical of today was reviewed. Risks and benefits of the procedure were explained. The patient understood and agreed to proceed. Informed consent was obtained. IV inserted per routine protocol. The patient was taken to the operating room and placed in the prone position with a pillow positioned underneath the abdomen. The left side of her lower back was prepped and draped in a sterile fashion using iodine x3. Under fluoroscopy on oblique view, the L3 through S1 vertebral bodies were visualized. The skin and subcutaneous tissue was anesthetized with approximately 5 mL of 1% lidocaine using a 25-gauge regular needle. Under direct visualization with fluoroscopy, at approximately 25-degree angle starting on the left L3, ending on the left S1, passing through the L4 and L5, using a 22-gauge 3-1/2-inch spinal needle, the needle was advanced via the skin. The tip of the needle was maneuvered and directed towards the superior medial gutter of the transverse process at the vicinity of the medial branch. Once tip of the needle was in contact with the bone, the needle was pulled approximately 2 mm off the bone. After negative aspiration of blood or CSF and confirmation on AP as well as oblique view, a total of 8 mL of preservative-free 0.25% Marcaine was injected in divided doses between those four levels. The needles were then removed intact. The patient experienced no sign or symptoms of intrathecal or intravascular injection. The patient experienced no paresthesia. The procedure was completed without any apparent difficulty or any complications. The patient appeared to tolerate it well. ASSESSMENT AND PLAN: This is a 49-year-old female with lumbosacral spondylosis, lumbosacral degenerative disc disease, lumbar facet arthropathy status post diagnostic left- sided lumbar medial branch injection L3-S1 patient will continue her current medications follow patient will follow approximately 1 week for reevaluation possible radiofrequency ablation.
== END 2020-04-30 10:17 | disposition home or self-care (01) ==
LOC: SDC 08:16 → AC 08:17
PROVIDERS: Anesthesiology; PCP Internal Medicine; Referring Provider Anesthesiology Pain Medicine; Visit Provider Anesthesiology Pain Medicine
PROC: 3E0S3BZ Introduction of Anesthetic Agent into Epidural Space, Percutaneous Approach (ICD-10-PCS; CPT 62322; principal; 2020-04-30 09:55)
DX: M51.17 Intervertebral disc disorders with radiculopathy, lumbosacral region (principal); M47.27 Other spondylosis with radiculopathy, lumbosacral region; M48.07 Spinal stenosis, lumbosacral region; M43.16 Spondylolisthesis, lumbar region; I11.9 Hypertensive heart disease without heart failure; F41.9 Anxiety disorder, unspecified; F32.9 Major depressive disorder, single episode, unspecified; G47.33 Obstructive sleep apnea (adult) (pediatric); E78.5 Hyperlipidemia, unspecified; J45.909 Unspecified asthma, uncomplicated; F17.210 Nicotine dependence, cigarettes, uncomplicated; Z79.51 Long term (current) use of inhaled steroids; Z79.891 Long term (current) use of opiate analgesic; Z79.899 Other long term (current) drug therapy
CPT/HCPCS: 64520 ×2; 64483; 72100; 81025; J7120

== ENCOUNTER → 2020-05-09 10:17 | Outpatient (CLI) | payer BC, SELFPAY ==
[2020-04-30 08:58] VITALS: BMI 47.3
[2020-05-09 10:57] LABS: Absolute Neutrophil Count 9.5 X10^3/uL (2.0-7.7); Basophil# 0.07 X10^3/uL; Basophil% 0.5 % (0-1); Eosinophil# 0.17 X10^3/uL; Eosinophils% 1.3 % (0-5); Hematocrit 42.2 % (37-47); Hemoglobin 13.7 g/dL (12.0-15.0); Mean Corp Hgb Conc 32.5 g/dL (32-36); Mean Corpuscular Volume 89.2 fL (81-99); Mean Platelet Vol. 10.4 fl (6.2-12.0); Monocyte# 0.73 X10^3/uL; Monocyte% 5.5 % (0-10); NRBC Flagged by Analyzer 0 % (0-5); Neutrophil # 9.53 X10^3/uL (2.7-7.7); Neutrophil % 71.4 % (47-70); Platelet Count 360 K/mm3 (150-450); RBC Distribution Width CV 14.4 % (11.6-14.6); RBC Distribution Width SD 46.4 fl (35.1-43.9); Red Blood Count 4.73 M/mm3 (4.2-5.4); White Blood Count 13.3 K/mm3 (4.4-11.0)
[2020-05-09 11:41] LABS: Vitamin D,25 Hydroxy 47.7 ng/mL
[2020-05-09 11:44] LABS: ALB/GLOB Ratio 0.9 RATIO (0.9-2.4); AST(SGOT) 14 U/L (15-37); Alanine Aminotransfer ALT/SGPT 28 U/L (13-56); Albumin, Serum 3.6 g/dL (3.2-5.0); Alkaline Phosphatase 113 U/L (45-117); Anion Gap 2 (5-15); BUN 8 mg/dL (7-18); BUN/Creat Ratio 10.5 RATIO (10-20); Calcium,Total 8.6 mg/dL (8.5-10.1); Chloride 107 mmol/L (98-107); Cholesterol 189 mg/dL (200); Creatinine, Serum 0.76 mg/dL (0.55-1.02); EST Glomerular Filtration Rate 85 mL/min (>60); Est Glom Filt Rate - Afr Amer 103 mL/min (>60); Globulin 3.9 g/dL (2.2-4.2); Glucose 91 mg/dL (74-106); High Density Lipoprotein 37 mg/dL; Potassium 3.7 mmol/L (3.5-5.1); Protein, Total 7.5 g/dL (6.4-8.2); Sodium Level 139 mmol/L (136-145); Triglycerides 246 mg/dL; Very Low Density Lipoprotein 49 mg/dL (5-40)
[2020-05-09 12:14] LABS: Microalbumin,Random Urine 11.7 mg/L (NO RANGE EST.)
[2020-05-10 10:11] LABS: AFP, Tumor Marker 1.1 ng/mL (0.0-8.3)
== END ==
PROVIDERS: PCP Internal Medicine; Referring Provider Internal Medicine; Visit Provider Internal Medicine
DX: I10 Essential (primary) hypertension (principal); E55.9 Vitamin D deficiency, unspecified; K76.0 Fatty (change of) liver, not elsewhere classified; R82.90 Unspecified abnormal findings in urine; E78.2 Mixed hyperlipidemia
CPT/HCPCS: 36415; 80053; 80061; 82043; 82105; 82306; 82570; 85025; 87086; 87088

== ENCOUNTER 2020-07-02 07:28 | Day surgery (SDC) | payer BC, SELFPAY ==
--- NOTE | 2020-07-02 07:12 | RAD_ITS ---
PROCEDURE: Left L3 S1 nerve block. DATE OF EXAMINATION: 07/02/2020. INDICATION: Female, 49 years old. Left-sided back pain. FLUOROSCOPY TIME (if supplied): (7 seconds) minutes/seconds. 4 intraoperative views were obtained. Intraoperative imaging provided for left L3-S1 nerve block. RAD/L/S Spine Min 4 Views IMPRESSION: Intraoperative imaging provided for left L3 S1 nerve block. Electronically Signed: Tray Murphy, at 10:47 EDT , Service support ,
[2020-07-02 07:55] VITALS: BP 137/85; PULSE 94; RESP 15; TEMP 37.4; O2SAT 94; BMI 47.8
[2020-07-02] MEDS: Bupivacaine 0.25% 30 ML Vial (08:30)
[2020-07-02 08:40] VITALS: BP 137/85; BP 143/89; PULSE 91; RESP 16; TEMP 36.9; O2SAT 94
--- NOTE | 2020-07-02 16:29 | OP.PCM_ITS ---
Report of Operation Date of Procedure: 07/02/20 Description of Surgical Findings:: PREOPERATIVE DIAGNOSIS: Lumbosacral spondylosis, lumbosacral degenerative disc disease, lumbar facet arthropathy POSTOPERATIVE DIAGNOSIS: Lumbosacral spondylosis, lumbosacral degenerative disc disease, lumbar facet arthropathy PROCEDURE PERFORMED: Diagnostic left-sided lumbar medial branch injection, L3, L4, L5, and S1. ANESTHESIA: Local. BLOOD LOSS: Minimal. COMPLICATIONS: None. DESCRIPTION OF PROCEDURE: History and physical of today was reviewed. Risks and benefits of the procedure were explained. The patient understood and agreed to proceed. Informed consent was obtained. IV inserted per routine protocol. The patient was taken to the operating room and placed in the prone position with a pillow positioned underneath the abdomen. The left side of her lower back was prepped and draped in a sterile fashion using iodine x3. Under fluoroscopy on oblique view, the L3 through S1 vertebral bodies were visualized. The skin and subcutaneous tissue was anesthetized with approximately 5 mL of 1% lidocaine using a 25-gauge regular needle. Under direct visualization with fluoroscopy, at approximately 25-degree angle starting on the left L3, ending on the left S1, passing through the L4 and L5, using a 22-gauge 3-1/2-inch spinal needle, the needle was advanced via the skin. The tip of the needle was maneuvered and directed towards the superior medial gutter of the transverse process at the vicinity of the medial branch. Once tip of the needle was in contact with the bone, the needle was pulled approximately 2 mm off the bone. After negative aspiration of blood or CSF and confirmation on AP as well as oblique view, a total of 8 mL of preservative-free 0.25% Marcaine was injected in divided doses between those four levels. The needles were then removed intact. The patient experienced no sign or symptoms of intrathecal or intravascular injection. The patient experienced no paresthesia. The procedure was completed without any apparent difficulty or any complications. The patient appeared to tolerate it well. ASSESSMENT AND PLAN: This is a 49-year-old female with lumbosacral spondylosis, lumbosacral degenerative disc disease, lumbar facet arthropathy status post diagnostic left- sided lumbar medial branch injection L3-S1 patient will continue her current medications follow patient will follow approximately 1 week for reevaluation and possible radiofrequency ablation.
== END 2020-07-02 08:52 | disposition home or self-care (01) ==
LOC: SDC 07:28 → AC 07:29
PROVIDERS: PCP Internal Medicine; Referring Provider Anesthesiology Pain Medicine; Visit Provider Anesthesiology Pain Medicine
PROC: 3E0T3BZ Introduction of Anesthetic Agent into Peripheral Nerves and Plexi, Percutaneous Approach (ICD-10-PCS; CPT 64493; principal; 2020-07-02 08:35)
DX: M51.17 Intervertebral disc disorders with radiculopathy, lumbosacral region (principal); M47.27 Other spondylosis with radiculopathy, lumbosacral region; M48.07 Spinal stenosis, lumbosacral region; M43.16 Spondylolisthesis, lumbar region; I11.9 Hypertensive heart disease without heart failure; F41.9 Anxiety disorder, unspecified; F32.9 Major depressive disorder, single episode, unspecified; G47.33 Obstructive sleep apnea (adult) (pediatric); E78.5 Hyperlipidemia, unspecified; D64.9 Anemia, unspecified; J45.909 Unspecified asthma, uncomplicated; F17.200 Nicotine dependence, unspecified, uncomplicated; Z79.891 Long term (current) use of opiate analgesic; Z79.899 Other long term (current) drug therapy
CPT/HCPCS: 64493; 64494; 64483; 72110

== ENCOUNTER → 2020-07-12 | Outpatient (CLI) | payer BC, SELFPAY ==
[2020-07-02 07:55] VITALS: BMI 47.8
[2020-07-12 09:30] LABS: White Blood Cells 0 SEEN /hpf (0-5)
[2020-07-12 10:00] LABS: Color, Urine Yellow (Yellow); Glucose, Dipstick Normal (Normal); Ketone-Dipstick Negative (Negative); Leukocyte Esterase-Dipstick Negative /ul (Negative); Nitrite-Dipstick Negative (Negative); Occult Blood-Urine 50 /ul (Negative); Protein-Dipstick Negative (Negative); Urine Bilirubin Dipstick Negative (Negative); Urine Clarity Sl. Cloudy (Clear); Urine Urobilinogen Normal (Normal); Urine pH 6.5 (5.0 - 8.0)
[2020-07-12 10:07] LABS: Absolute Lymphocyte Count 2.64 X10^3/uL (0.83-4.51); Absolute Neutrophil Count 7.2 X10^3/uL (2.0-7.7); Basophil# 0.08 X10^3/uL; Basophil% 0.7 % (0-1); Eosinophil# 0.13 X10^3/uL; Eosinophils% 1.2 % (0-5); Hematocrit 43.4 % (37-47); Hemoglobin 13.6 g/dL (12.0-15.0); Lymphocyte # 2.64 X10^3/ul (4.0); Lymphocyte % 24.7 % (19-41); Mean Corp Hgb Conc 31.3 g/dL (32-36); Mean Corpuscular Hgb 28.3 pg (27.0-32.0); Mean Corpuscular Volume 90.2 fL (81-99); Mean Platelet Vol. 10.7 fl (6.2-12.0); Monocyte# 0.62 X10^3/uL; Monocyte% 5.8 % (0-10); NRBC Flagged by Analyzer 0 % (0-5); Neutrophil # 7.16 X10^3/uL (2.7-7.7); Neutrophil % 67.2 % (47-70); Platelet Count 316 K/mm3 (150-450); RBC Distribution Width CV 13.9 % (11.6-14.6); RBC Distribution Width SD 46.7 fl (35.1-43.9); Red Blood Count 4.81 M/mm3 (4.2-5.4); White Blood Count 10.7 K/mm3 (4.4-11.0)
[2020-07-12 10:11] LABS: Bacteria RARE /hpf (None Seen); Red Blood Cells-Urine 0-5 SEEN /hpf (0-5); Squamous Epithelial Cells - UA 5-10 SEEN /hpf (5-10)
[2020-07-12 10:12] LABS: Mucous, Urine RARE /hpf (<or=2+)
[2020-07-12 10:44] LABS: Vitamin B12 1813 pg/mL (211-911); Vitamin D,25 Hydroxy 35.1 ng/mL
[2020-07-12 10:45] LABS: ALB/GLOB Ratio 0.8 RATIO (0.9-2.4); AST(SGOT) 13 U/L (15-37); Alanine Aminotransfer ALT/SGPT 20 U/L (13-56); Albumin, Serum 3.4 g/dL (3.2-5.0); Alkaline Phosphatase 119 U/L (45-117); Anion Gap 4 (5-15); BUN 8 mg/dL (7-18); BUN/Creat Ratio 10.8 RATIO (10-20); Calcium,Total 8.7 mg/dL (8.5-10.1); Chloride 104 mmol/L (98-107); Cholesterol 168 mg/dL (200); Creatinine, Serum 0.74 mg/dL (0.55-1.02); EST Glomerular Filtration Rate 87 mL/min (>60); Est Glom Filt Rate - Afr Amer 106 mL/min (>60); Glucose 84 mg/dL (74-106); High Density Lipoprotein 36 mg/dL; Potassium 3.5 mmol/L (3.5-5.1); Protein, Total 7.4 g/dL (6.4-8.2); Sodium Level 140 mmol/L (136-145); Triglycerides 321 mg/dL; Very Low Density Lipoprotein 64 mg/dL (5-40)
[2020-07-12 10:50] LABS: Hemoglobin A1c 5.6 % (3.8-5.6)
== END | disposition home or self-care (01) ==
LOC: LAB 09:24
PROVIDERS: PCP Internal Medicine; Referring Provider Internal Medicine; Visit Provider Internal Medicine
DX: E78.2 Mixed hyperlipidemia (principal); I11.9 Hypertensive heart disease without heart failure; E53.8 Deficiency of other specified B group vitamins; E55.9 Vitamin D deficiency, unspecified; R93.89 Abnormal findings on diagnostic imaging of other specified body structures; R73.09 Other abnormal glucose
CPT/HCPCS: 36415; 80053; 80061; 81001; 82306; 82607; 83036; 85025

== ENCOUNTER 2020-08-20 06:59 | Day surgery (SDC) | payer BC, SELFPAY ==
[2020-08-20 07:37] VITALS: BP 142/89; PULSE 86; RESP 16; TEMP 37.1; O2SAT 95; BMI 48.1
--- NOTE | 2020-08-20 08:30 | RAD_ITS ---
STUDY: X-RAY - LUMBAR SPINE REASON FOR EXAM: Female, 50 years old. LUMBAR RADIO FREQ ABLATION, L3-S1 LEFT TECHNIQUE: 10 view(s) of the lumbar spine were obtained. COMPARISON: None FINDINGS: Fluoroscopy the lumbar spine was utilized during the procedure and 10 images submitted for interpretation.. RAD/Lumbar Spine 2 or 3 Views IMPRESSION: Fluoroscopy during RF ablation. Electronically Signed: Adi Roper MD at 17:12 EST Tel , Service support ,
[2020-08-20] MEDS: MethylPREDNISolone Acetate 40 MG/ML Vial IM (08:56)
[2020-08-20] MEDS: Lidocaine 1% (30 ml sdv) 30 ML Vial (08:57)
[2020-08-20] MEDS: Bupivacaine 0.25% 30 ML Vial (08:57)
--- NOTE | 2020-08-20 09:00 | PCM.OPRPT ---
Report of Operation Date of Procedure: 08/20/20 Description of Surgical Findings:: PROCEDURE: Left-sided lumbar radiofrequency ablation of the medial branch L3, L4, L5, S1 PREOPERATIVE DIAGNOSES: Lumbosacral spondylosis, lumbosacral degenerative disc disease, lumbar facet arthropathy POSTOPERATIVE DIAGNOSES: Lumbosacral spondylosis, lumbosacral degenerative disc disease, lumbar facet arthropathy ANESTHESIA: MAC COMPLICATIONS: None BLOOD LOSS: Minimal PROCEDURE IN DETAIL: History and physical today was reviewed. Risks and benefits of procedure explained. The patient understood, agreed to the procedure and informed consent was obtained. IV inserted per routine protocol. The patient was taken to the operating room, placed in the prone position with a pillow positioned underneath the abdomen. The left side of the lower back was prepped and draped in a sterile fashion using iodine x 3. Under fluoroscopy guidance, on an oblique view, the L3 through S1 vertebral bodies were visualized. The skin and subcutaneous tissue was anesthetized with approximately 10 mL of 1% lidocaine using a 25-gauge regular needle. Under direct visualization with fluoroscopy at approximately 25-degree angle, starting on the left L3, ending on the left S1 passing through the L4-L5 using a 20-gauge 15 cm with a 10 mm curved active tip radiofrequency ablation needle the needle passed through the skin. The tip of the needle was maneuvered and directed towards the superior and medial gutter of the transverse process at the vicinity of the medial branch. Once the tip of the needle was in contact with the bone, the needle pulled approximately 2 mm up the bone. The stylet of each needle was then removed. After negative aspiration of blood with CSF and confirmation of AP as well as oblique view, radiofrequency ablation probe was then inserted at each level. Impedance was then recorded at L3 to be 268, at L4 263, at L5 254, at S1 384 ohm. Motor-evoked potential was then initiated to 1.5 volt without any motor response at each corresponding level. The probe was then removed intact and a total of 6 mL preservative-free 1% lidocaine was injected in divided doses between those 4 levels after negative aspiration of blood with CSF. The radiofrequency ablation probe was then reinserted after confirmation of AP, oblique as well as lateral view. Radiofrequency ablation was then initiated to 80 degrees Celsius for 90 seconds at each level. Once concluded, the probe was then removed intact and a total of 6 mL of preservative-free 0.25% Marcaine with 40 mg Depo-Medrol was injected in divided doses between those 4 levels. The needles were then removed intact. The patient experienced no signs or symptoms of intrathecal, intravascular injection. The patient experienced no paraesthesia. The procedure was completed without any apparent difficulty, any complication. The patient appeared to tolerate well. Sensory as well as motor exam was unchanged from prior to procedure. ASSESSMENT AND PLAN: This is a 50-year-old female with lumbosacral spondylosis, lumbosacral degenerative disc disease, lumbar facet arthropathy, status post left-sided lumbar radiofrequency ablation of the medial branch L3 through S1. The patient will continue her current medications. The patient will follow up in approximately 2 weeks for reevaluation.
[2020-08-20 09:05] VITALS: BP 116/79; BP 142/89; PULSE 84; RESP 16; TEMP 36.2; O2SAT 99
[2020-08-20 09:10] VITALS: BP 128/70; BP 142/89; PULSE 86; RESP 16; O2SAT 100
[2020-08-20 09:15] VITALS: BP 115/67; BP 142/89; PULSE 81; RESP 16; O2SAT 100
[2020-08-20 09:18] VITALS: BP 131/85; BP 142/89; PULSE 77; RESP 16; TEMP 36.1; O2SAT 99
[2020-08-20 09:26] VITALS: BP 142/89
== END 2020-08-20 09:39 | disposition home or self-care (01) ==
LOC: SDC 06:59 → AC 07:00
PROVIDERS: PCP Internal Medicine; Referring Provider Anesthesiology Pain Medicine; Visit Provider Anesthesiology Pain Medicine
PROC: (CPT 64635; principal; 2020-08-20 08:25)
DX: M51.17 Intervertebral disc disorders with radiculopathy, lumbosacral region (principal); M47.27 Other spondylosis with radiculopathy, lumbosacral region; M48.07 Spinal stenosis, lumbosacral region; M43.17 Spondylolisthesis, lumbosacral region; I11.9 Hypertensive heart disease without heart failure; F41.9 Anxiety disorder, unspecified; F32.9 Major depressive disorder, single episode, unspecified; E78.5 Hyperlipidemia, unspecified; F17.210 Nicotine dependence, cigarettes, uncomplicated; D64.9 Anemia, unspecified; J45.909 Unspecified asthma, uncomplicated; G47.30 Sleep apnea, unspecified; Z79.891 Long term (current) use of opiate analgesic; Z79.899 Other long term (current) drug therapy
CPT/HCPCS: 01936; 64635; 64636 ×3; 72100; 76000; J7120

== ENCOUNTER → 2020-09-17 07:43 | Outpatient (CLI) | payer BC, SELFPAY ==
[2020-08-20 07:37] VITALS: BMI 48.1
--- NOTE | 2020-09-17 07:48 | BI_ITS ---
MAMMOGRAPHY - BILATERAL SCREENING REASON FOR EXAM: Female, 50 years old. Routine annual screening examination. PERTINENT HISTORY: Non-contributory. TECHNIQUE: Digital bilateral breast casey (3D mammographic acquisition) in the CC and MLO projections. 2-D mediolateral oblique (MLO) and craniocaudad (CC) views of both breasts were obtained. CAD: Full Field Digital Mammography with Computer Added Detection was performed. COMPARISON: Comparison is made with prior study dated 06/20/2019 and 06/17/2018. FINDINGS: Breast Composition: There are scattered areas of fibroglandular density. There are no dominant masses or suspicious calcifications. Stable benign-appearing bilateral axillary lymph nodes. No other significant abnormalities are identified. There has been no significant change since the prior study. BI/SCREEN MAMM (CAD) W/CASEY BILAT IMPRESSION: Stable bilateral screening mammogram. Yearly follow-up mammogram recommended. (A) ASSESSMENT CATEGORY: BIRADS Category 2: Benign. A letter regarding these results will be sent to the patient by the facility within 30 days. Approximately 10% of breast cancers are not detected by mammography. A normal mammogram should not delay biopsy of a clinically suspicious abnormality. [id number] Electronically Signed: Tray Murphy, at 12:40 EST , Service support ,
--- NOTE | 2020-09-17 08:15 | US_ITS ---
STUDY: ABDOMINAL ULTRASOUND - RIGHT UPPER QUADRANT REASON FOR VISIT: Female, 50 years old FATTY LIVER TECHNIQUE: Ultrasound evaluation of the right upper quadrant was performed with real-time and static sahu-scale imaging. TECHNICAL QUALITY: Adequate. COMPARISON: 03/30/2019 FINDINGS: Liver: The liver measures 18 cm. There is increased echogenicity of the liver. The bile ducts are within normal limits. There is hepatic color flow. The direction of portal flow is hepatopetal. Simple anechoic cyst of the right hepatic lobe considered benign (stable); no specific imaging follow-up recommendations. Gallbladder: The patient is status post cholecystectomy. Common Bile Duct (C.B.D.): The common bile duct measures 4 mm. Pancreas: There is no demonstrated pancreatic mass or cyst. Right Kidney: Normal size of the right kidney. The right kidney measures 11.5 x 5.8 x 4.4 cm. Normal renal cortex. The right cortex measures cm. There is no demonstrated renal mass or cyst. There is no right hydronephrosis. US/Liver IMPRESSION: 1. Similar hepatic steatosis. No solid/suspicious hepatic masses or biliary dilation. Electronically Signed: Rudi Pretty MD ([place]) at 12:27 EST , Service support ,
== END ==
PROVIDERS: PCP Internal Medicine; Referring Provider Internal Medicine; Visit Provider Internal Medicine
DX: K76.0 Fatty (change of) liver, not elsewhere classified (principal); Z12.31 Encounter for screening mammogram for malignant neoplasm of breast
CPT/HCPCS: 76705; 77063; 77067

== ENCOUNTER → 2020-11-09 09:48 | Outpatient (CLI) | payer BC, SELFPAY ==
[2020-11-09 10:43] LABS: Absolute Lymphocyte Count 2.49 X10^3/uL (0.83-4.51); Absolute Neutrophil Count 5.7 X10^3/uL (2.0-7.7); Basophil# 0.07 X10^3/uL; Basophil% 0.8 % (0-1); Eosinophils% 1.1 % (0-5); Hematocrit 39.8 % (37-47); Hemoglobin 12.3 g/dL (12.0-15.0); Lymphocyte # 2.49 X10^3/ul (4.0); Lymphocyte % 28.2 % (19-41); Mean Corp Hgb Conc 30.9 g/dL (32-36); Mean Corpuscular Hgb 27.4 pg (27.0-32.0); Mean Corpuscular Volume 88.6 fL (81-99); Mean Platelet Vol. 10.6 fl (6.2-12.0); Monocyte# 0.49 X10^3/uL; Monocyte% 5.5 % (0-10); NRBC Flagged by Analyzer 0 % (0-5); Neutrophil # 5.66 X10^3/uL (2.7-7.7); Neutrophil % 64.2 % (47-70); Platelet Count 376 K/mm3 (150-450); RBC Distribution Width CV 14.4 % (11.6-14.6); RBC Distribution Width SD 46.1 fl (35.1-43.9); Red Blood Count 4.49 M/mm3 (4.2-5.4); White Blood Count 8.8 K/mm3 (4.4-11.0)
[2020-11-09 10:52] LABS: Color, Urine Yellow (Yellow); Glucose, Dipstick Normal (Normal); Ketone-Dipstick 5 mg/dl (Negative); Leukocyte Esterase-Dipstick 25 /ul (Negative); Nitrite-Dipstick Negative (Negative); Occult Blood-Urine 25 /ul (Negative); Protein-Dipstick 15 mg/dl (Negative); Urine Bilirubin Dipstick Negative (Negative); Urine Clarity Sl. Cloudy (Clear); Urine Urobilinogen 1 mg/dl (Normal)
[2020-11-09 11:05] LABS: Hemoglobin A1c 5.5 % (3.8-5.6)
[2020-11-09 11:16] LABS: Vitamin B12 > 2000 pg/mL (211-911)
[2020-11-09 11:17] LABS: Vitamin D,25 Hydroxy 45.2 ng/mL
[2020-11-09 11:35] LABS: ALB/GLOB Ratio 0.9 RATIO (0.9-2.4); AST(SGOT) 15 U/L (15-37); Alanine Aminotransfer ALT/SGPT 20 U/L (13-56); Albumin, Serum 3.7 g/dL (3.2-5.0); Alkaline Phosphatase 122 U/L (45-117); Anion Gap 4 (5-15); BUN 11 mg/dL (7-18); Calcium,Total 8.7 mg/dL (8.5-10.1); Chloride 104 mmol/L (98-107); Cholesterol 161 mg/dL (200); Creatinine, Serum 0.85 mg/dL (0.55-1.02); EST Glomerular Filtration Rate 75 mL/min (>60); Est Glom Filt Rate - Afr Amer 91 mL/min (>60); Globulin 3.9 g/dL (2.2-4.2); Glucose 97 mg/dL (74-106); High Density Lipoprotein 43 mg/dL; Potassium 3.6 mmol/L (3.5-5.1); Protein, Total 7.6 g/dL (6.4-8.2); Sodium Level 139 mmol/L (136-145); Thyroid Stim Hormone (TSH) 1.41 uIU/mL (0.358-3.74); Triglycerides 110 mg/dL; Very Low Density Lipoprotein 22 mg/dL (5-40)
[2020-11-10 09:19] LABS: AFP, Tumor Marker 1.1 ng/mL (0.0-8.3)
== END ==
PROVIDERS: PCP Internal Medicine; Referring Provider Internal Medicine; Visit Provider Internal Medicine
DX: E78.2 Mixed hyperlipidemia (principal); E55.9 Vitamin D deficiency, unspecified; E53.8 Deficiency of other specified B group vitamins; R53.83 Other fatigue; R73.09 Other abnormal glucose
CPT/HCPCS: 36415; 80053; 80061; 81002; 82105; 82306; 82607; 83036; 84443; 85025

== ENCOUNTER → 2021-01-01 12:40 | Outpatient (CLI) | payer BC, SELFPAY | PROVIDERS: PCP Internal Medicine; Visit Provider Internal Medicine | DX: Z46.89 Encounter for fitting and adjustment of other specified devices (principal) ==

== ENCOUNTER → 2021-01-10 | Outpatient (CLI) | payer BC, SELFPAY ==
[2021-01-10 15:32] VITALS: BMI 49.3
--- NOTE | 2021-01-10 16:00 | EMB_PTH ---
PATIENT: JOAN GUDINO LOC: [facility] U#:[id number] AGE/SX: 50/F ROOM: RE01/10/[address]: Dr. Yanira Castillo MD : 1970 BED: DIS: 01/10/2021 SPEC #: [id number] RECD: 01/11/21 09:01 STATUS: MOSES REShari #: [id number] JUAN: 01/10/21 16:[address]: Yanira Castillo DEPT: SURGICAL PATHOLOGY RECD BY: Lindsey Andrews ENTERED: 01/11/21 09:01 SP TYPE: ENDOM BX/C YOGESH DR: Dr. Candelaria John DO Tissues: Endocervical Procedures: Surgery Specimen Level IV HEADER OPERATION: Colposcopy PRE-OP DIAGNOSIS: ASCUS, HPV negative TISSUE SUBMITTED: ECC MICROSCOPIC DIAGNOSIS ECC: A fragment of benign endocervical mucosa. A fragment of benign squamous epithelium. Desquamated benign ecto- and endocervical epithelial cells. Negative for dysplasia. See comment. JESSEE:jossy 01/14/2021 COMMENT Clinical correlation and appropriate follow up are necessary. MICROSCOPIC DESCRIPTION Slides are reviewed. GROSS DESCRIPTION Received in fixative is one container labeled with the patient's name and designated ECC. The specimen consists of multiple irregular fragments of carnes soft tissue that in aggregate measure 0.5 x 0.1 x 0.1 cm. The specimen is totally submitted in one cassette. / JESSEE:jossy 01/11/21 TC:4 CPT: 35396
== END | disposition home or self-care (01) ==
LOC: LABSPEC 16:50
PROVIDERS: PCP Internal Medicine; Referring Provider Obstetrics & Gynecology; Visit Provider Obstetrics & Gynecology
DX: R87.610 Atypical squamous cells of undetermined significance on cytologic smear of cervix (ASC-US) (principal)
CPT/HCPCS: 88305

== ENCOUNTER → 2021-06-06 10:54 | Outpatient (CLI) | payer OTHER, SELFPAY ==
[2021-06-06 12:10] LABS: Absolute Neutrophil Count 4.6 X10^3/uL (2.0-7.7); Basophil# 0.05 X10^3/uL; Basophil% 0.7 % (0-1); Eosinophil# 0.07 X10^3/uL; Hematocrit 39.9 % (37-47); Hemoglobin 12.4 g/dL (12.0-15.0); Lymphocyte % 29.9 % (19-41); Mean Corp Hgb Conc 31.1 g/dL (32-36); Mean Corpuscular Hgb 27.4 pg (27.0-32.0); Mean Corpuscular Volume 88.1 fL (81-99); Mean Platelet Vol. 10.8 fl (6.2-12.0); Monocyte# 0.39 X10^3/uL; Monocyte% 5.3 % (0-10); NRBC Flagged by Analyzer 0 % (0-5); Neutrophil # 4.62 X10^3/uL (2.7-7.7); Neutrophil % 62.8 % (47-70); Platelet Count 350 K/mm3 (150-450); RBC Distribution Width CV 13.9 % (11.6-14.6); RBC Distribution Width SD 44.6 fl (35.1-43.9); Red Blood Count 4.53 M/mm3 (4.2-5.4); White Blood Count 7.4 K/mm3 (4.4-11.0)
[2021-06-06 12:25] LABS: AST(SGOT) 14 U/L (15-37); Alanine Aminotransfer ALT/SGPT 20 U/L (13-56); Albumin, Serum 3.4 g/dL (3.2-5.0); Alkaline Phosphatase 124 U/L (45-117); Bilirubin, Direct 0.16 mg/dL (0.00-0.30); Globulin 4.2 g/dL (2.2-4.2); Protein, Total 7.6 g/dL (6.4-8.2)
[2021-06-06 13:11] LABS: HIV - WCH Non-Reactive (Nonreactive); Hepatitis B Surface Antibody Reactive; Hepatitis B Surface Antigen Non-Reactive (Nonreactive); Hepatitis C Antibody Non-Reactive (Nonreactive)
[2021-06-13 14:05] LABS: Hepatitis B Core Ab Total Negative (Negative)
== END ==
PROVIDERS: PCP Internal Medicine; Referring Provider Dermatology; Visit Provider Dermatology
DX: L40.0 Psoriasis vulgaris (principal); Z79.899 Other long term (current) drug therapy
CPT/HCPCS: 36415; 80076; 85025; 86480; 86703; 86704; 86706; 86803; 87340

== ENCOUNTER → 2021-06-11 | Outpatient (CLI) | payer OTHER, SELFPAY ==
[2021-06-11 15:58] LABS: Absolute Lymphocyte Count 2.09 X10^3/uL (0.83-4.51); Absolute Neutrophil Count 4.6 X10^3/uL (2.0-7.7); Basophil# 0.05 X10^3/uL; Basophil% 0.7 % (0-1); Eosinophil# 0.09 X10^3/uL; Eosinophils% 1.2 % (0-5); Hematocrit 39.5 % (37-47); Hemoglobin 12.3 g/dL (12.0-15.0); Lymphocyte # 2.09 X10^3/ul (0.83-4.51); Lymphocyte % 28.9 % (19-41); Mean Corp Hgb Conc 31.1 g/dL (32-36); Mean Corpuscular Hgb 27.6 pg (27.0-32.0); Mean Corpuscular Volume 88.8 fL (81-99); Mean Platelet Vol. 11.3 fl (6.2-12.0); Monocyte% 5.5 % (0-10); NRBC Flagged by Analyzer 0 % (0-5); Neutrophil # 4.57 X10^3/uL (2.7-7.7); Neutrophil % 63.4 % (47-70); Platelet Count 346 K/mm3 (150-450); RBC Distribution Width CV 14.1 % (11.6-14.6); RBC Distribution Width SD 45.5 fl (35.1-43.9); Red Blood Count 4.45 M/mm3 (4.2-5.4); White Blood Count 7.2 K/mm3 (4.4-11.0)
[2021-06-11 16:15] LABS: Vitamin B12 1663 pg/mL (211-911)
[2021-06-11 16:19] LABS: ALB/GLOB Ratio 0.9 RATIO (0.9-2.4); AST(SGOT) 10 U/L (15-37); Alanine Aminotransfer ALT/SGPT 18 U/L (13-56); Albumin, Serum 3.4 g/dL (3.2-5.0); Alkaline Phosphatase 108 U/L (45-117); Anion Gap 9 (5-15); BUN 13 mg/dL (7-18); BUN/Creat Ratio 17.8 RATIO (10-20); Calcium,Total 9.1 mg/dL (8.5-10.1); Chloride 105 mmol/L (98-107); Creatinine, Serum 0.73 mg/dL (0.55-1.02); EST Glomerular Filtration Rate 89 mL/min (>60); Est Glom Filt Rate - Afr Amer 108 mL/min (>60); Ferritin 13 ng/mL (8-252); Globulin 3.7 g/dL (2.2-4.2); Glucose 96 mg/dL (74-106); Iron 42 ug/dL (50-170); Iron Binding Capacity,Total 366 ug/dL (250-450); Potassium 4.1 mmol/L (3.5-5.1); Protein, Total 7.1 g/dL (6.4-8.2); Sodium Level 143 mmol/L (136-145)
== END | disposition home or self-care (01) ==
LOC: LABSPEC 15:37
PROVIDERS: PCP Internal Medicine; Visit Provider Internal Medicine
DX: E61.1 Iron deficiency (principal); F41.8 Other specified anxiety disorders; R73.01 Impaired fasting glucose
CPT/HCPCS: 80053; 82607; 82728; 83540; 83550; 85025

== ENCOUNTER → 2021-07-16 | Outpatient (CLI) | payer OTHER, SELFPAY | END | disposition home or self-care (01) | LOC: LABSPEC 13:27 | PROVIDERS: PCP Internal Medicine; Referring Provider Physician Assistant Surgical; Visit Provider Physician Assistant Surgical | DX: Z11.52 Encounter for screening for COVID-19 (principal) | CPT/HCPCS: 87635; U0005; U0003 ==

== ENCOUNTER 2021-11-15 09:08 | Outpatient (CLI) | payer OTHER, SELFPAY ==
--- NOTE | 2021-11-15 08:35 | US_ITS ---
STUDY: ABDOMINAL ULTRASOUND - RIGHT UPPER QUADRANT REASON FOR VISIT: Female, 51 years old FATTY LIVER TECHNIQUE: Ultrasound evaluation of the right upper quadrant was performed with real-time and static sahu-scale imaging. TECHNICAL QUALITY: Adequate. COMPARISON: Comparison is made with prior study dated 09/17/2020. FINDINGS: Liver: The liver is enlarged measures 18.9 cm. There is increased echogenicity consistent with fatty infiltration. The bile ducts are within normal limits. There is hepatic color flow. The direction of portal flow is hepatopetal. There is a 1.7 cm x 1.7 cm x 1.4 cm cyst in the right lobe of the liver. Gallbladder: The patient is status post cholecystectomy. Common Bile Duct (C.B.D.): The common bile duct measures 5 mm. Pancreas: Normal size of the head, body and tail of the pancreas. There is normal echogenicity of the pancreas. There is no demonstrated pancreatic mass or cyst. Right Kidney: Normal size of the right kidney. The right kidney measures 11.3 cm x 5.8 cm x 4.1 cm. Normal renal cortex. The right cortex measures 1.3 cm. There is no demonstrated renal mass or cyst. There is no right hydronephrosis. US/Abdomen Limited IMPRESSION: Mild hepatomegaly and fatty infiltration of the liver. Stable small right hepatic cyst. Electronically Signed: Tray Murphy MD at 15:27 EST ,
--- NOTE | 2021-11-15 09:11 | BI_ITS ---
MAMMOGRAPHY - BILATERAL SCREENING REASON FOR EXAM: Female, 51 years old. Routine annual screening examination. PERTINENT HISTORY: Non-contributory. TECHNIQUE: Digital bilateral breast casey (3D mammographic acquisition) in the CC and MLO projections. 2-D mediolateral oblique (MLO) and craniocaudad (CC) views of both breasts were obtained. CAD: Full Field Digital Mammography with Computer Added Detection was performed. COMPARISON: Comparison is made with prior study dated 09/17/2020 and 06/20/2019. FINDINGS: Breast Composition: There are scattered areas of fibroglandular density. There are no dominant masses or suspicious calcifications. Stable small benign appearing bilateral axillary. No other significant abnormalities are identified. There has been no significant change since the prior study. BI/SCRN MAMM (CAD)W/CASEY BILAT IMPRESSION: Stable bilateral screening mammogram. Yearly follow-up mammogram recommended. (A) ASSESSMENT CATEGORY: BIRADS Category 2: Benign. A letter regarding these results will be sent to the patient by the facility within 30 days. Approximately 10% of breast cancers are not detected by mammography. A normal mammogram should not delay biopsy of a clinically suspicious abnormality. [id number] Electronically Signed: Tray Murphy MD at 11:07 EST ,
[2021-11-15 10:20] LABS: Absolute Lymphocyte Count 2.79 X10^3/uL (0.83-4.51); Absolute Neutrophil Count 9.5 X10^3/uL (2.0-7.7); Basophil# 0.04 X10^3/uL; Basophil% 0.3 % (0-1); Eosinophil# 0.14 X10^3/uL; Hematocrit 42.9 % (37-47); Hemoglobin 13.7 g/dL (12.0-15.0); Lymphocyte # 2.79 X10^3/ul (0.83-4.51); Lymphocyte % 20.9 % (19-41); Mean Corp Hgb Conc 31.9 g/dL (32-36); Mean Corpuscular Hgb 27.3 pg (27.0-32.0); Mean Corpuscular Volume 85.6 fL (81-99); Mean Platelet Vol. 10.9 fl (6.2-12.0); Monocyte# 0.81 X10^3/uL; Monocyte% 6.1 % (0-10); NRBC Flagged by Analyzer 0 % (0-5); Neutrophil # 9.53 X10^3/uL (2.7-7.7); Neutrophil % 71.3 % (47-70); Platelet Count 351 K/mm3 (150-450); RBC Distribution Width CV 16.1 % (11.6-14.6); RBC Distribution Width SD 50.1 fl (35.1-43.9); Red Blood Count 5.01 M/mm3 (4.2-5.4); White Blood Count 13.4 K/mm3 (4.4-11.0)
[2021-11-15 10:36] LABS: Hemoglobin A1c 5.9 % (3.8-5.6)
[2021-11-15 10:37] LABS: Vitamin B12 1009 pg/mL (211-911); Vitamin D,25 Hydroxy 40.8 ng/mL
[2021-11-15 10:39] LABS: ALB/GLOB Ratio 0.9 RATIO (0.9-2.4); AST(SGOT) 15 U/L (15-37); Alanine Aminotransfer ALT/SGPT 22 U/L (13-56); Albumin, Serum 3.5 g/dL (3.2-5.0); Alkaline Phosphatase 116 U/L (45-117); Anion Gap 4 (5-15); BUN 11 mg/dL (7-18); BUN/Creat Ratio 13.1 RATIO (10-20); Calcium,Total 9.3 mg/dL (8.5-10.1); Chloride 104 mmol/L (98-107); Cholesterol 168 mg/dL (200); Creatinine, Serum 0.84 mg/dL (0.55-1.02); EST Glomerular Filtration Rate 76 mL/min (>60); Est Glom Filt Rate - Afr Amer 92 mL/min (>60); Glucose 99 mg/dL (74-106); High Density Lipoprotein 31 mg/dL; Potassium 3.3 mmol/L (3.5-5.1); Protein, Total 7.5 g/dL (6.4-8.2); Sodium Level 139 mmol/L (136-145); Triglycerides 249 mg/dL; Very Low Density Lipoprotein 50 mg/dL (5-40)
[2021-11-18 12:14] LABS: AFP, Tumor Marker 0.9 ng/mL (0.0-8.3)
== END 2021-11-15 23:59 | disposition home or self-care (01) ==
PROVIDERS: PCP Internal Medicine; Visit Provider Internal Medicine
DX: Z12.31 Encounter for screening mammogram for malignant neoplasm of breast (principal); I11.9 Hypertensive heart disease without heart failure; E78.2 Mixed hyperlipidemia; R73.09 Other abnormal glucose; E53.8 Deficiency of other specified B group vitamins; K76.0 Fatty (change of) liver, not elsewhere classified; E55.9 Vitamin D deficiency, unspecified
CPT/HCPCS: 36415; 76705; 77063; 77067; 80053; 80061; 82105; 82306; 82607; 83036; 85025

== ENCOUNTER 2021-11-22 11:10 | Outpatient (CLI) | payer OTHER, SELFPAY ==
[2021-11-22 12:25] LABS: Potassium 3.2 mmol/L (3.5-5.1)
== END 2021-11-22 23:59 | disposition home or self-care (01) ==
LOC: MTLAB 11:11
PROVIDERS: PCP Internal Medicine; Referring Provider Internal Medicine; Visit Provider Internal Medicine
DX: E87.6 Hypokalemia (principal)
CPT/HCPCS: 36415; 84132

== ENCOUNTER 2021-12-06 13:26 | Outpatient (CLI) | payer OTHER, SELFPAY ==
[2021-12-06 15:35] LABS: Potassium 3.3 mmol/L (3.5-5.1)
== END 2021-12-06 23:59 | disposition home or self-care (01) ==
LOC: MTLAB 13:29
PROVIDERS: PCP Internal Medicine; Referring Provider Internal Medicine; Visit Provider Internal Medicine
DX: E87.6 Hypokalemia (principal)
CPT/HCPCS: 36415; 84132

== ENCOUNTER 2021-12-20 15:04 | Outpatient (CLI) | payer OTHER, SELFPAY ==
[2021-12-20 17:36] LABS: Magnesium 2.1 mg/dL (1.6-2.6); Potassium 3.8 mmol/L (3.5-5.1)
== END 2021-12-20 23:59 | disposition home or self-care (01) ==
LOC: MTLAB 15:05
PROVIDERS: PCP Internal Medicine; Referring Provider Internal Medicine; Visit Provider Internal Medicine
DX: E87.6 Hypokalemia (principal)
CPT/HCPCS: 36415; 83735; 84132

== ENCOUNTER → 2022-05-01 | Outpatient (CLI) | payer OTHER, SELFPAY ==
[2022-05-01 12:41] LABS: Mucous, Urine 0 SEEN /hpf (<or=2+)
[2022-05-01 13:13] LABS: Color, Urine Yellow (Yellow); Glucose, Dipstick Normal (Normal); Ketone-Dipstick Negative (Negative); Leukocyte Esterase-Dipstick 25 /ul (Negative); Nitrite-Dipstick Negative (Negative); Occult Blood-Urine 250 /ul (Negative); Protein-Dipstick 30 mg/dl (Negative); Urine Bilirubin Dipstick Negative (Negative); Urine Clarity Clear (Clear); Urine Urobilinogen 1 mg/dl (Normal)
[2022-05-01 13:16] LABS: Absolute Lymphocyte Count 2.74 X10^3/uL (0.83-4.51); Absolute Neutrophil Count 8.6 X10^3/uL (2.0-7.7); Basophil# 0.06 X10^3/uL; Basophil% 0.5 % (0-1); Eosinophil# 0.18 X10^3/uL; Eosinophils% 1.5 % (0-5); Hematocrit 41.5 % (37-47); Hemoglobin 13.4 g/dL (12.0-15.0); Lymphocyte # 2.74 X10^3/ul (0.83-4.51); Lymphocyte % 22.5 % (19-41); Mean Corp Hgb Conc 32.3 g/dL (32-36); Mean Corpuscular Hgb 28.5 pg (27.0-32.0); Mean Corpuscular Volume 88.1 fL (81-99); Mean Platelet Vol. 10.9 fl (6.2-12.0); Monocyte# 0.59 X10^3/uL; Monocyte% 4.8 % (0-10); NRBC Flagged by Analyzer 0 % (0-5); Neutrophil # 8.56 X10^3/uL (2.7-7.7); Neutrophil % 70.3 % (47-70); Platelet Count 339 K/mm3 (150-450); RBC Distribution Width CV 16.1 % (11.6-14.6); RBC Distribution Width SD 51.8 fl (35.1-43.9); Red Blood Count 4.71 M/mm3 (4.2-5.4); White Blood Count 12.2 K/mm3 (4.4-11.0)
[2022-05-01 13:26] LABS: Red Blood Cells-Urine 10-25 SEEN /hpf (0-5)
[2022-05-01 13:28] LABS: Bacteria 1+ /hpf (None Seen); Squamous Epithelial Cells - UA 0-5 SEEN /hpf (5-10); White Blood Cells 0-5 SEEN /hpf (0-5)
[2022-05-01 13:33] LABS: Hemoglobin A1c 5.7 % (3.8-5.6)
[2022-05-01 13:39] LABS: ALB/GLOB Ratio 0.8 RATIO (0.9-2.4); AST(SGOT) 15 U/L (15-37); Alanine Aminotransfer ALT/SGPT 25 U/L (13-56); Albumin, Serum 3.2 g/dL (3.2-5.0); Alkaline Phosphatase 100 U/L (45-117); Anion Gap 4 (5-15); BUN 9 mg/dL (7-18); BUN/Creat Ratio 12.4 RATIO (10-20); Bilirubin, Direct 0.11 mg/dL (0.00-0.30); Calcium,Total 8.8 mg/dL (8.5-10.1); Chloride 108 mmol/L (98-107); Cholesterol 167 mg/dL (200); Creatinine, Serum 0.73 mg/dL (0.55-1.02); EST Glomerular Filtration Rate 89 mL/min (>60); Est Glom Filt Rate - Afr Amer 108 mL/min (>60); Globulin 3.8 g/dL (2.2-4.2); Glucose 95 mg/dL (74-106); High Density Lipoprotein 32 mg/dL; Potassium 4.2 mmol/L (3.5-5.1); Sodium Level 142 mmol/L (136-145); Triglycerides 243 mg/dL; Very Low Density Lipoprotein 49 mg/dL (5-40)
[2022-05-01 13:40] LABS: Vitamin D,25 Hydroxy 51.8 ng/mL
[2022-05-06 19:07] LABS: QNTFERON TB Mitogen Value > 10.00 IU/mL (.); QNTFERON TB Nil Value 0 IU/mL (.); QNTFERON TB1+ Ag Value 0.04 IU/mL (.); QNTFERON TB2+ Ag Value 0 IU/mL (.)
[2022-05-07 08:04] LABS: QNTIFERON TB Positive Criteria Negative (Negative)
== END | disposition home or self-care (01) ==
LOC: LAB 12:36
PROVIDERS: PCP Internal Medicine; Visit Provider Dermatology
DX: L40.0 Psoriasis vulgaris (principal); L40.59 Other psoriatic arthropathy; L40.8 Other psoriasis; I11.9 Hypertensive heart disease without heart failure; E78.2 Mixed hyperlipidemia; R60.9 Edema, unspecified; E55.9 Vitamin D deficiency, unspecified; R73.09 Other abnormal glucose; Z79.899 Other long term (current) drug therapy
CPT/HCPCS: 36415; 80053; 80061; 81001; 82248; 82306; 83036; 85025; 86480

== ENCOUNTER → 2022-12-26 | Outpatient (CLI) | payer OTHER, SELFPAY ==
[2022-12-26 13:42] LABS: Absolute Neutrophil Count 6.4 X10^3/uL (2.0-7.7); Basophil# 0.06 X10^3/uL; Basophil% 0.6 % (0-1); Eosinophil# 0.18 X10^3/uL; Eosinophils% 1.8 % (0-5); Hematocrit 43.2 % (37-47); Lymphocyte % 26.5 % (19-41); Mean Corp Hgb Conc 32.4 g/dL (32-36); Mean Corpuscular Hgb 28.5 pg (27.0-32.0); Mean Corpuscular Volume 87.8 fL (81-99); Mean Platelet Vol. 10.7 fl (6.2-12.0); Monocyte# 0.52 X10^3/uL; Monocyte% 5.3 % (0-10); NRBC Flagged by Analyzer 0 % (0-5); Neutrophil # 6.42 X10^3/uL (2.7-7.7); Neutrophil % 65.4 % (47-70); Platelet Count 314 K/mm3 (150-450); RBC Distribution Width CV 15.4 % (11.6-14.6); RBC Distribution Width SD 48.9 fl (35.1-43.9); Red Blood Count 4.92 M/mm3 (4.2-5.4); White Blood Count 9.8 K/mm3 (4.4-11.0)
[2022-12-26 14:18] LABS: Vitamin D,25 Hydroxy 39.4 ng/mL
[2022-12-26 14:24] LABS: Hemoglobin A1c 5.7 % (3.8-5.6)
[2022-12-26 14:33] LABS: ALB/GLOB Ratio 0.9 RATIO (0.9-2.4); AST(SGOT) 22 U/L (15-37); Alanine Aminotransfer ALT/SGPT 36 U/L (13-56); Albumin, Serum 3.4 g/dL (3.2-5.0); Alkaline Phosphatase 107 U/L (45-117); Anion Gap 5 (5-15); BUN 10 mg/dL (7-18); BUN/Creat Ratio 11.6 RATIO (10-20); Chloride 106 mmol/L (98-107); Cholesterol 250 mg/dL (200); Creatinine, Serum 0.86 mg/dL (0.55-1.02); EST Glomerular Filtration Rate 73 mL/min (>60); Est Glom Filt Rate - Afr Amer 89 mL/min (>60); Globulin 3.9 g/dL (2.2-4.2); Glucose 89 mg/dL (74-106); High Density Lipoprotein 35 mg/dL; Potassium 3.7 mmol/L (3.5-5.1); Protein, Total 7.3 g/dL (6.4-8.2); Sodium Level 138 mmol/L (136-145); Triglycerides 302 mg/dL; Very Low Density Lipoprotein 60 mg/dL (5-40)
== END | disposition home or self-care (01) ==
LOC: LAB 13:09
PROVIDERS: PCP Internal Medicine; Referring Provider Internal Medicine; Visit Provider Internal Medicine
DX: E78.2 Mixed hyperlipidemia (principal); R79.82 Elevated C-reactive protein (CRP); I11.9 Hypertensive heart disease without heart failure; E55.9 Vitamin D deficiency, unspecified; R73.09 Other abnormal glucose
CPT/HCPCS: 36415; 80053; 80061; 82306; 83036; 85025; 86141

== ENCOUNTER → 2023-01-09 | Outpatient (CLI) | payer OTHER, SELFPAY ==
--- NOTE | 2023-01-09 09:54 | US_ITS ---
STUDY: ABDOMINAL ULTRASOUND - RIGHT UPPER QUADRANT REASON FOR VISIT: Female, 52 years old fatty liver TECHNIQUE: Ultrasound evaluation of the right upper quadrant was performed with real-time and static sahu-scale imaging. TECHNICAL QUALITY: Adequate. COMPARISON: Comparison is made with prior study of November 15, 2021. FINDINGS: Liver: The liver is enlarged and measures 19.1 cm. There is increased echogenicity consistent with fatty infiltration. The bile ducts are within normal limits. There is hepatic color flow. The direction of portal flow is hepatopetal. There is a 1.7 cm x 1.6 cm x 1.4 cm cyst in the region of the hilum of the liver. This is unchanged. Gallbladder: The patient is status post cholecystectomy. Common Bile Duct (C.B.D.): The common bile duct measures 4 mm. Pancreas: Normal size of the head, body and tail of the pancreas. There is normal echogenicity of the pancreas. There is no demonstrated pancreatic mass or cyst. Right Kidney: Normal size of the right kidney. The right kidney measures 12 cm x 5.87 x 4.1 cm. Normal renal cortex. The right cortex measures 1.1 cm. There is no demonstrated renal mass or cyst. There is no right hydronephrosis. IMPRESSION: Hepatomegaly and fatty infiltration of the liver. Stable cyst in the right lobe of the liver. Electronically Signed: Tray Murphy MD at 14:58 EDT , STUDY: ABDOMINAL ULTRASOUND - ELASTOGRAPHY REASON FOR VISIT: Female, 52 years old. Hepatomegaly and fat infiltration of the liver. TECHNIQUE: Liver stiffness measurements were obtained on a [employer] 85 ultrasound machine using a CA 1-7 probe following the SRU guidelines. 3 measurements were obtained using a 2-D-SWE method. TheIQR/M was 12% suggesting a quality data set. TECHNICAL QUALITY: Adequate. COMPARISON: Comparison is made with prior study done earlier today. FINDINGS: Liver: Small cyst in the medial aspect of the right lobe of the liver. Median liver stiffness measured 5 kPa. Abdomen: There is no demonstrated mass lesion. US/ABD Limited w/ Elastography IMPRESSION: Liver stiffness measures 5 kPa compatible with F0-F1 (Normal to mild liver fibrosis) Metavir score. Electronically Signed: Tray Murphy MD at 14:59 EDT ,
== END | disposition home or self-care (01) ==
LOC: US 09:54
PROVIDERS: PCP Internal Medicine; Referring Provider Internal Medicine; Visit Provider Internal Medicine
DX: K76.0 Fatty (change of) liver, not elsewhere classified (principal)
CPT/HCPCS: 76705; 76981

== ENCOUNTER → 2023-01-12 | Outpatient (CLI) | payer OTHER, SELFPAY ==
--- NOTE | 2023-01-12 10:37 | BI_ITS ---
MAMMOGRAPHY - BILATERAL SCREENING REASON FOR EXAM: Female, 52 years old. Routine annual screening examination. PERTINENT HISTORY: Non-contributory. TECHNIQUE: Digital bilateral breast casey (3D mammographic acquisition) in the CC and MLO projections. 2-D mediolateral oblique (MLO) and craniocaudad (CC) views of both breasts were obtained. CAD: Full Field Digital Mammography with Computer Added Detection was performed. COMPARISON: Comparison is made with prior study November 15, 2021 and September 17, 2020. FINDINGS: Breast Composition: There are scattered areas of fibroglandular density. There are no dominant masses or suspicious calcifications. Stable benign-appearing bilateral axillary lymph nodes. No other significant abnormalities are identified. There has been no significant change since the prior study. BI/SCRN MAMM (CAD)W/CASEY BILAT IMPRESSION: Stable bilateral screening mammogram. Yearly follow-up mammogram recommended. (A) ASSESSMENT CATEGORY: BIRADS Category 2: Benign. A letter regarding these results will be sent to the patient by the facility within 30 days. Approximately 10% of breast cancers are not detected by mammography. A normal mammogram should not delay biopsy of a clinically suspicious abnormality. [id number] Electronically Signed: Tray Murphy MD at 12:31 EDT ,
== END | disposition home or self-care (01) ==
LOC: OPBI 10:36
PROVIDERS: PCP Internal Medicine; Referring Provider Internal Medicine; Visit Provider Internal Medicine
DX: Z12.31 Encounter for screening mammogram for malignant neoplasm of breast (principal)
CPT/HCPCS: 77063; 77067

== ENCOUNTER → 2023-04-28 | Outpatient (CLI) | payer OTHER, SELFPAY ==
[2023-04-28 16:05] LABS: Mucous, Urine 0 SEEN /hpf (<or=2+); Red Blood Cells-Urine 0 SEEN /hpf (0-5)
[2023-04-28 16:33] LABS: Absolute Lymphocyte Count 2.24 X10^3/uL (0.83-4.51); Absolute Neutrophil Count 6.6 X10^3/uL (2.0-7.7); Basophil# 0.06 X10^3/uL; Basophil% 0.6 % (0-1); Eosinophil# 0.21 X10^3/uL; Eosinophils% 2.1 % (0-5); Hematocrit 45.2 % (37-47); Hemoglobin 14.3 g/dL (12.0-15.0); Lymphocyte # 2.24 X10^3/ul (0.83-4.51); Lymphocyte % 22.8 % (19-41); Mean Corp Hgb Conc 31.6 g/dL (32-36); Mean Corpuscular Hgb 28.3 pg (27.0-32.0); Mean Corpuscular Volume 89.3 fL (81-99); Mean Platelet Vol. 11.1 fl (6.2-12.0); Monocyte# 0.67 X10^3/uL; Monocyte% 6.8 % (0-10); NRBC Flagged by Analyzer 0 % (0-5); Neutrophil # 6.62 X10^3/uL (2.7-7.7); Neutrophil % 67.4 % (47-70); Platelet Count 299 K/mm3 (150-450); RBC Distribution Width SD 52.3 fl (35.1-43.9); Red Blood Count 5.06 M/mm3 (4.2-5.4); White Blood Count 9.8 K/mm3 (4.4-11.0)
[2023-04-28 16:40] LABS: Erythrocyte Sedimentation Rate 10 mm/hr (0-30)
[2023-04-28 16:40] LABS: Color, Urine Yellow (Yellow); Glucose, Dipstick Normal (Normal); Ketone-Dipstick Negative (Negative); Leukocyte Esterase-Dipstick 25 /ul (Negative); Nitrite-Dipstick Negative (Negative); Occult Blood-Urine 10 /ul (Negative); Protein-Dipstick 15 mg/dl (Negative); Specific Gravity, Urine 1.015 (1.002-1.030); Urine Bilirubin Dipstick Negative (Negative); Urine Clarity Clear (Clear); Urine Urobilinogen 1 mg/dl (Normal)
[2023-04-28 17:01] LABS: ALB/GLOB Ratio 0.8 RATIO (0.9-2.4); AST(SGOT) 24 U/L (15-37); Alanine Aminotransfer ALT/SGPT 38 U/L (13-56); Albumin, Serum 3.4 g/dL (3.2-5.0); Alkaline Phosphatase 123 U/L (45-117); Anion Gap 4 (5-15); BUN 11 mg/dL (7-18); BUN/Creat Ratio 14.7 RATIO (10-20); Chloride 109 mmol/L (98-107); Cholesterol 172 mg/dL (200); Creatinine, Serum 0.75 mg/dL (0.55-1.02); EST Glomerular Filtration Rate 86 mL/min (>60); Est Glom Filt Rate - Afr Amer 104 mL/min (>60); Globulin 4.1 g/dL (2.2-4.2); Glucose 96 mg/dL (74-106); High Density Lipoprotein 34 mg/dL; Potassium 3.8 mmol/L (3.5-5.1); Protein, Total 7.5 g/dL (6.4-8.2); Sodium Level 144 mmol/L (136-145); Triglycerides 219 mg/dL; Very Low Density Lipoprotein 44 mg/dL (5-40)
[2023-04-28 17:07] LABS: AST(SGOT) 23 U/L (15-37); Alanine Aminotransfer ALT/SGPT 36 U/L (13-56); Albumin, Serum 3.4 g/dL (3.2-5.0); Alkaline Phosphatase 120 U/L (45-117); Creatinine, Serum 0.72 mg/dL (0.55-1.02); EST Glomerular Filtration Rate 90 mL/min (>60); Est Glom Filt Rate - Afr Amer 109 mL/min (>60); Protein, Total 7.4 g/dL (6.4-8.2)
[2023-04-28 17:08] LABS: Vitamin D,25 Hydroxy 64.7 ng/mL
[2023-04-28 17:13] LABS: Bacteria 1+ /hpf (None Seen); Squamous Epithelial Cells - UA 0-5 SEEN /hpf (5-10); White Blood Cells 0-5 SEEN /hpf (0-5)
[2023-04-28 17:23] LABS: Hemoglobin A1c 5.7 % (3.8-5.6)
[2023-04-30 20:08] LABS: QNTFERON TB Mitogen Value > 10.00 IU/mL (.); QNTFERON TB Nil Value 0.03 IU/mL (.); QNTFERON TB1+ Ag Value 0.03 IU/mL (.); QNTFERON TB2+ Ag Value 0.02 IU/mL (.); QNTIFERON TB Positive Criteria Negative (Negative)
== END | disposition home or self-care (01) ==
PROVIDERS: PCP Internal Medicine; Referring Provider Dermatology; Visit Provider Dermatology
DX: R73.09 Other abnormal glucose (principal); L40.59 Other psoriatic arthropathy; E78.2 Mixed hyperlipidemia; L40.0 Psoriasis vulgaris; L40.8 Other psoriasis; Z79.899 Other long term (current) drug therapy; Z51.81 Encounter for therapeutic drug level monitoring
CPT/HCPCS: 36415; 80053; 80061; 80076; 81001; 82306; 82565; 83036; 85025; 85652; 86140; 86480

== ENCOUNTER → 2023-08-10 | Outpatient (CLI) | payer OTHER, SELFPAY ==
[2023-08-10 12:28] LABS: Erythrocyte Sedimentation Rate 23 mm/hr (0-30)
[2023-08-10 12:55] LABS: Absolute Lymphocyte Count 2.01 X10^3/uL (0.83-4.51); Absolute Neutrophil Count 5.7 X10^3/uL (2.0-7.7); Basophil# 0.07 X10^3/uL; Basophil% 0.8 % (0-1); Eosinophil# 0.17 X10^3/uL; Hematocrit 44.7 % (37-47); Hemoglobin 14.3 g/dL (12.0-15.0); Lymphocyte # 2.01 X10^3/ul (0.83-4.51); Lymphocyte % 23.6 % (19-41); Mean Corpuscular Hgb 27.6 pg (27.0-32.0); Mean Corpuscular Volume 86.3 fL (81-99); Mean Platelet Vol. 11.5 fl (6.2-12.0); Monocyte# 0.58 X10^3/uL; Monocyte% 6.8 % (0-10); NRBC Flagged by Analyzer 0 % (0-5); Neutrophil # 5.65 X10^3/uL (2.7-7.7); Neutrophil % 66.6 % (47-70); Platelet Count 284 K/mm3 (150-450); RBC Distribution Width CV 15.1 % (11.6-14.6); RBC Distribution Width SD 48.2 fl (35.1-43.9); Red Blood Count 5.18 M/mm3 (4.2-5.4); Vitamin B12 502 pg/mL (211-911); White Blood Count 8.5 K/mm3 (4.4-11.0)
[2023-08-10 13:07] LABS: ALB/GLOB Ratio 0.8 RATIO (0.9-2.4); AST(SGOT) 24 U/L (15-37); Alanine Aminotransfer ALT/SGPT 40 U/L (13-56); Albumin, Serum 3.2 g/dL (3.2-5.0); Alkaline Phosphatase 108 U/L (45-117); Anion Gap 4 (5-15); BUN 8 mg/dL (7-18); BUN/Creat Ratio 9.5 RATIO (10-20); Bilirubin, Direct 0.15 mg/dL (0.00-0.30); Calcium,Total 8.6 mg/dL (8.5-10.1); Chloride 107 mmol/L (98-107); Creatinine, Serum 0.84 mg/dL (0.55-1.02); EST Glomerular Filtration Rate 75 mL/min (>60); Est Glom Filt Rate - Afr Amer 90 mL/min (>60); Glucose 95 mg/dL (74-106); Potassium 3.6 mmol/L (3.5-5.1); Protein, Total 7.2 g/dL (6.4-8.2); Sodium Level 140 mmol/L (136-145)
== END | disposition home or self-care (01) ==
LOC: MTLAB 10:43
PROVIDERS: PCP Internal Medicine; Referring Provider Internal Medicine Rheumatology; Visit Provider Internal Medicine Rheumatology
DX: I11.9 Hypertensive heart disease without heart failure (principal); L40.50 Arthropathic psoriasis, unspecified; E53.8 Deficiency of other specified B group vitamins; R73.09 Other abnormal glucose; Z51.81 Encounter for therapeutic drug level monitoring
CPT/HCPCS: 36415; 80053; 82248; 82607; 82746; 85025; 85652; 86140

== ENCOUNTER → 2023-09-24 | Outpatient (CLI) | payer OTHER, SELFPAY ==
--- NOTE | 2023-09-24 10:23 | NM_ITS ---
CLINICAL: 53-year-old female with history of chronic episodic emesis. SEMI-SOLID PHASE 99m Tc SULFUR COLLOID GASTRIC EMPTYING STUDY COMPARISON: None available FINDINGS: The patient was administered 1.1 mCi of 99m Tc sulfur colloid mixed with oatmeal and consumed per os. Image acquisitions in the anterior-posterior projections were obtained for 60 minutes. There is prompt visualization of the stomach. There is no gastroesophageal reflux identified. The T ? raw data emptying was calculated to be 30.15 minutes, (Normal: 12-56 minutes). NM/Gastric Emptying Study IMPRESSION: 1. NORMAL 99m Tc sulfur colloid semi-solid phase (oatmeal) gastric emptying imaging examination. A. There is normal and preserved semi-solid phase gastric emptying compared to normal controls. (Delisa et al, J Nucl Med Tech 38: 186, 2010). Electronically Signed: Adi Montoya DO at 10:22 EST ,
== END | disposition home or self-care (01) ==
LOC: NM 10:23
PROVIDERS: PCP Internal Medicine; Referring Provider Nurse Practitioner Family; Visit Provider Nurse Practitioner Family
DX: R11.11 Vomiting without nausea (principal)
CPT/HCPCS: 78264; A9541

== ENCOUNTER → 2023-10-26 | Outpatient (CLI) | payer OTHER, SELFPAY ==
[2023-10-26 13:35] LABS: Absolute Lymphocyte Count 2.39 X10^3/uL (0.83-4.51); Absolute Neutrophil Count 8.7 X10^3/uL (2.0-7.7); Basophil# 0.08 X10^3/uL; Basophil% 0.7 % (0-1); Eosinophil# 0.17 X10^3/uL; Eosinophils% 1.4 % (0-5); Hematocrit 45.8 % (37-47); Hemoglobin 14.3 g/dL (12.0-15.0); Lymphocyte # 2.39 X10^3/ul (0.83-4.51); Lymphocyte % 19.5 % (19-41); Mean Corp Hgb Conc 31.2 g/dL (32-36); Mean Corpuscular Hgb 26.6 pg (27.0-32.0); Mean Corpuscular Volume 85.3 fL (81-99); Mean Platelet Vol. 11.9 fl (6.2-12.0); Monocyte# 0.88 X10^3/uL; Monocyte% 7.2 % (0-10); NRBC Flagged by Analyzer 0 % (0-5); Neutrophil # 8.65 X10^3/uL (2.7-7.7); Neutrophil % 70.7 % (47-70); Platelet Count 294 K/mm3 (150-450); RBC Distribution Width CV 15.7 % (11.6-14.6); RBC Distribution Width SD 48.3 fl (35.1-43.9); Red Blood Count 5.37 M/mm3 (4.2-5.4); White Blood Count 12.2 K/mm3 (4.4-11.0)
[2023-10-26 14:01] LABS: ALB/GLOB Ratio 0.8 RATIO (0.9-2.4); AST(SGOT) 55 U/L (15-37); Alanine Aminotransfer ALT/SGPT 72 U/L (13-56); Albumin, Serum 3.3 g/dL (3.2-5.0); Alkaline Phosphatase 110 U/L (45-117); Anion Gap 6 (5-15); BUN 7 mg/dL (7-18); BUN/Creat Ratio 9.4 RATIO (10-20); Bilirubin, Direct 0.21 mg/dL (0.00-0.30); Calcium,Total 8.9 mg/dL (8.5-10.1); Chloride 108 mmol/L (98-107); Cholesterol 178 mg/dL (200); Creatinine, Serum 0.75 mg/dL (0.55-1.02); EST Glomerular Filtration Rate 86 mL/min (>60); Est Glom Filt Rate - Afr Amer 104 mL/min (>60); Glucose 97 mg/dL (74-106); High Density Lipoprotein 31 mg/dL; Lipase 25 U/L (13-75); Potassium 3.2 mmol/L (3.5-5.1); Protein, Total 7.3 g/dL (6.4-8.2); Sodium Level 143 mmol/L (136-145); Triglycerides 216 mg/dL; Very Low Density Lipoprotein 43 mg/dL (5-40)
[2023-10-28 16:09] LABS: QNTFERON TB Mitogen Value > 10.00 IU/mL (.); QNTFERON TB Nil Value 0 IU/mL (.); QNTFERON TB1+ Ag Value 0.01 IU/mL (.); QNTFERON TB2+ Ag Value 0.02 IU/mL (.); QNTIFERON TB Positive Criteria Negative (Negative)
== END | disposition home or self-care (01) ==
LOC: LAB 12:11
PROVIDERS: PCP Internal Medicine; Referring Provider Internal Medicine; Visit Provider Internal Medicine
DX: L40.0 Psoriasis vulgaris (principal); L40.59 Other psoriatic arthropathy; L40.8 Other psoriasis; L72.8 Other follicular cysts of the skin and subcutaneous tissue; D22.21 Melanocytic nevi of right ear and external auricular canal; D22.5 Melanocytic nevi of trunk; Z79.899 Other long term (current) drug therapy; E78.5 Hyperlipidemia, unspecified; R10.9 Unspecified abdominal pain
CPT/HCPCS: 36415; 80053; 80061; 82248; 83690; 85025; 86480

== ENCOUNTER → 2023-11-02 | Outpatient (CLI) | payer OTHER, SELFPAY ==
--- NOTE | 2023-11-02 14:57 | CT_ITS ---
STUDY: CT ABDOMEN AND PELVIS WITH CONTRAST REASON FOR EXAM: Female, 53 years old. Abdominal pain -- abdominal pain. Intermittent postprandial left upper quadrant pain. RADIATION DOSAGE (If Supplied By Facility): CTDIvol = ( 24.13 ) mGy, DLP = ( 1750.77 ) mGycm TECHNIQUE: Transaxial images were obtained from the dome of the diaphragm to the symphysis pubis with oral contrast. Oral and amp; IV Readi-CAT and amp; 100mL Isovue-300 was administered. Sagittal and coronal images were reconstructed. Individualized dose optimization techniques were used for this CT. COMPARISON: Comparison is made with prior study July 12, 2019. FINDINGS: Minimal increased markings in the right middle lobe. The visualized portions of the heart are within normal limits. There is decreased attenuation of the liver consistent with steatosis. The patient is status post cholecystectomy. Stable 1.2 cm cyst in the medial portion of the right lobe of the liver. Stable subcentimeter cyst in the medial upper aspect of the right lobe of the liver. Normal spleen. Normal pancreas. Normal bilateral adrenal glands. Normal right kidney. Normal left kidney. Normal visualized stomach. Normal small intestine. Normal colon. The appendix is visualized and appears normal. There is scattered atherosclerotic calcification of the abdominal aorta, without a demonstrated aneurysm. Normal inferior vena cava. Normal retroperitoneum. Normal urinary bladder. Enlarged fibroid uterus. There is evidence of prior ventral hernia repair. Normal osseous structures. CT/Abdomen/Pelvis WITH Contrast IMPRESSION: Enlarged fibroid uterus. Electronically Signed: Tray Murphy MD at 15:38 EST ,
== END | disposition home or self-care (01) ==
LOC: CT 14:56
PROVIDERS: PCP Internal Medicine; Referring Provider Internal Medicine; Visit Provider Internal Medicine
DX: R10.9 Unspecified abdominal pain (principal)
CPT/HCPCS: 74177; Q9967

== ENCOUNTER → 2023-11-17 | Outpatient (CLI) | payer OTHER, SELFPAY ==
[2023-11-17 13:38] LABS: Absolute Lymphocyte Count 2.51 X10^3/uL (0.83-4.51); Basophil# 0.08 X10^3/uL; Basophil% 0.7 % (0-1); Eosinophil# 0.24 X10^3/uL; Eosinophils% 2.1 % (0-5); Hematocrit 45.6 % (37-47); Hemoglobin 14.3 g/dL (12.0-15.0); Lymphocyte # 2.51 X10^3/ul (0.83-4.51); Lymphocyte % 21.5 % (19-41); Mean Corp Hgb Conc 31.4 g/dL (32-36); Mean Corpuscular Hgb 26.8 pg (27.0-32.0); Mean Corpuscular Volume 85.6 fL (81-99); Mean Platelet Vol. 11.9 fl (6.2-12.0); Monocyte# 0.77 X10^3/uL; Monocyte% 6.6 % (0-10); NRBC Flagged by Analyzer 0 % (0-5); Neutrophil # 8.03 X10^3/uL (2.7-7.7); Neutrophil % 68.8 % (47-70); Platelet Count 281 K/mm3 (150-450); RBC Distribution Width CV 15.7 % (11.6-14.6); RBC Distribution Width SD 48.6 fl (35.1-43.9); Red Blood Count 5.33 M/mm3 (4.2-5.4); White Blood Count 11.7 K/mm3 (4.4-11.0)
[2023-11-17 14:10] LABS: AST(SGOT) 50 U/L (15-37); Alanine Aminotransfer ALT/SGPT 74 U/L (13-56); Albumin, Serum 3.6 g/dL (3.2-5.0); Alkaline Phosphatase 115 U/L (45-117); Bilirubin, Direct 0.23 mg/dL (0.00-0.30); Protein, Total 7.6 g/dL (6.4-8.2)
== END | disposition home or self-care (01) ==
LOC: LAB 12:25
PROVIDERS: PCP Internal Medicine; Referring Provider Dermatology; Visit Provider Dermatology
DX: E87.6 Hypokalemia (principal); Z79.899 Other long term (current) drug therapy
CPT/HCPCS: 36415; 80076; 85025

== ENCOUNTER → 2024-01-11 | Outpatient (CLI) | payer OTHER, SELFPAY ==
[2024-01-15 11:09] LABS: HPV APTIMA, High Risk Negative (Negative)
== END | disposition home or self-care (01) ==
LOC: LABSPEC 15:29
PROVIDERS: PCP Internal Medicine; Referring Provider Obstetrics & Gynecology; Visit Provider Obstetrics & Gynecology
DX: Z12.4 Encounter for screening for malignant neoplasm of cervix (principal)
CPT/HCPCS: 87624; 88175; G0145

== ENCOUNTER → 2024-02-02 | Outpatient (CLI) | payer OTHER, SELFPAY ==
--- NOTE | 2024-02-02 11:50 | BI_ITS ---
MAMMOGRAPHY - BILATERAL SCREENING 3-D TOMOSYNTHESIS REASON FOR EXAM: Female, 53 years old. screening PERTINENT HISTORY: No significant family history. TECHNIQUE: 2-D mammograms and 3-D Tomosynthesis of the breast (s) were performed. CAD was performed. COMPARISON: 01/12/2023 FINDINGS: The breast composition is composed of scattered fibroglandular density. Scattered benign calcifications are seen. No dense spiculated masses or suspicious microcalcifications are identified. No architectural distortion is identified. There is no skin thickening or retraction. There has been no significant change since the prior study. BI/SCRN MAMM (CAD)W/CASEY BILAT IMPRESSION: No mammographic signs of malignancy. Routine yearly mammograms recommended. ASSESSMENT CATEGORY: BIRADS Category 1: Negative. A letter regarding these results will be sent to the patient by the facility within 30 days. FOLLOW UP RECOMMENDATION: Yearly follow up mammogram recommended. (A) Approximately 10% of breast cancers are not detected by mammography. A normal mammogram should not delay biopsy of a clinically suspicious abnormality. Electronically Signed: Adi Roper MD at 9:29 EDT ,
== END | disposition home or self-care (01) ==
LOC: OPBI 11:49
PROVIDERS: PCP Internal Medicine; Referring Provider Internal Medicine; Visit Provider Internal Medicine
DX: Z12.31 Encounter for screening mammogram for malignant neoplasm of breast (principal)
CPT/HCPCS: 77063; 77067

== ENCOUNTER → 2024-02-03 | Outpatient (CLI) | payer OTHER, SELFPAY ==
[2024-02-03 12:08] LABS: AST(SGOT) 50 U/L (15-37); Alanine Aminotransfer ALT/SGPT 77 U/L (13-56); Albumin, Serum 3.2 g/dL (3.2-5.0); Alkaline Phosphatase 114 U/L (45-117); Bilirubin, Direct 0.24 mg/dL (0.00-0.30); Globulin 4.1 g/dL (2.2-4.2); Protein, Total 7.3 g/dL (6.4-8.2)
== END | disposition home or self-care (01) ==
LOC: LAB 11:14
PROVIDERS: PCP Internal Medicine; Referring Provider Internal Medicine Rheumatology; Visit Provider Internal Medicine Rheumatology
DX: L40.50 Arthropathic psoriasis, unspecified (principal)
CPT/HCPCS: 36415; 80076

== ENCOUNTER 2024-04-04 15:19 | Outpatient (RCR) | payer OTHER, SELFPAY ==
[2024-03-22 14:07] LABS: AST(SGOT) 69 U/L (15-37); Alanine Aminotransfer ALT/SGPT 87 U/L (13-56); Albumin, Serum 3.4 g/dL (3.2-5.0); Alkaline Phosphatase 110 U/L (45-117); Bilirubin, Direct 0.17 mg/dL (0.00-0.30); Globulin 3.9 g/dL (2.2-4.2); Protein, Total 7.3 g/dL (6.4-8.2)
[2024-04-04 16:29] LABS: AST(SGOT) 38 U/L (15-37); Alanine Aminotransfer ALT/SGPT 64 U/L (13-56); Albumin, Serum 3.2 g/dL (3.2-5.0); Alkaline Phosphatase 111 U/L (45-117); Bilirubin, Direct 0.18 mg/dL (0.00-0.30); Globulin 3.7 g/dL (2.2-4.2); Protein, Total 6.9 g/dL (6.4-8.2)
== END 2024-04-13 18:00 | disposition home or self-care (01) ==
LOC: LAB 15:19
PROVIDERS: PCP Internal Medicine; Referring Provider Internal Medicine Rheumatology; Visit Provider Internal Medicine Rheumatology
DX: R74.8 Abnormal levels of other serum enzymes (principal)
CPT/HCPCS: 36415; 80076

== ENCOUNTER 2024-04-20 12:28 | Outpatient (RCR) | payer OTHER, SELFPAY ==
[2024-04-20 14:06] LABS: Absolute Lymphocyte Count 2.28 X10^3/uL (0.83-4.51); Absolute Neutrophil Count 6.1 X10^3/uL (2.0-7.7); Basophil# 0.06 X10^3/uL; Basophil% 0.7 % (0-1); Eosinophil# 0.13 X10^3/uL; Eosinophils% 1.4 % (0-5); Hematocrit 44.2 % (37-47); Lymphocyte # 2.28 X10^3/ul (0.83-4.51); Lymphocyte % 25.1 % (19-41); Mean Corp Hgb Conc 31.7 g/dL (32-36); Mean Corpuscular Hgb 27.1 pg (27.0-32.0); Mean Corpuscular Volume 85.7 fL (81-99); Mean Platelet Vol. 12.4 fl (6.2-12.0); Monocyte# 0.53 X10^3/uL; Monocyte% 5.8 % (0-10); NRBC Flagged by Analyzer 0 % (0-5); Neutrophil # 6.07 X10^3/uL (2.7-7.7); Neutrophil % 66.7 % (47-70); Platelet Count 247 K/mm3 (150-450); RBC Distribution Width CV 14.7 % (11.6-14.6); RBC Distribution Width SD 46.7 fl (35.1-43.9); Red Blood Count 5.16 M/mm3 (4.2-5.4); White Blood Count 9.1 K/mm3 (4.4-11.0)
[2024-04-20 14:32] LABS: Vitamin B12 424 pg/mL (211-911); Vitamin D,25 Hydroxy 66.8 ng/mL
[2024-04-20 14:45] LABS: Hemoglobin A1c 5.4 % (3.8-5.6)
[2024-04-20 14:46] LABS: Microalbumin,Random Urine 32.6 mg/L (NO RANGE EST.)
[2024-04-20 14:47] LABS: ALB/GLOB Ratio 0.8 RATIO (0.9-2.4); AST(SGOT) 56 U/L (15-37); Alanine Aminotransfer ALT/SGPT 70 U/L (13-56); Albumin, Serum 3.3 g/dL (3.2-5.0); Alkaline Phosphatase 123 U/L (45-117); Anion Gap 2 (5-15); BUN 10 mg/dL (7-18); BUN/Creat Ratio 13.3 RATIO (10-20); Calcium,Total 9.1 mg/dL (8.5-10.1); Chloride 109 mmol/L (98-107); Creatinine, Serum 0.75 mg/dL (0.55-1.02); EST Glomerular Filtration Rate 85 mL/min (>60); Est Glom Filt Rate - Afr Amer 103 mL/min (>60); Glucose 87 mg/dL (74-106); Potassium 3.9 mmol/L (3.5-5.1); Protein, Total 7.3 g/dL (6.4-8.2); Sodium Level 141 mmol/L (136-145)
[2024-04-22 11:03] LABS: Bilirubin, Direct 0.24 mg/dL (0.00-0.30)
== END 2024-04-20 18:00 | disposition home or self-care (01) ==
LOC: LAB 12:28
PROVIDERS: PCP Internal Medicine; Referring Provider Internal Medicine Rheumatology; Visit Provider Internal Medicine Rheumatology
DX: R74.8 Abnormal levels of other serum enzymes (principal); R73.09 Other abnormal glucose; E87.6 Hypokalemia; E78.5 Hyperlipidemia, unspecified; E55.9 Vitamin D deficiency, unspecified; E53.8 Deficiency of other specified B group vitamins
CPT/HCPCS: 36415; 80053; 82043; 82248; 82306; 82570; 82607; 83036; 84156; 85025

== ENCOUNTER → 2024-05-13 | Outpatient (CLI) | payer OTHER, SELFPAY ==
[2024-05-13 12:50] LABS: Erythrocyte Sedimentation Rate 11 mm/hr (0-30)
[2024-05-13 12:55] LABS: Absolute Lymphocyte Count 2.81 X10^3/uL (0.83-4.51); Absolute Neutrophil Count 6.1 X10^3/uL (2.0-7.7); Basophil# 0.07 X10^3/uL; Basophil% 0.7 % (0-1); Eosinophil# 0.16 X10^3/uL; Eosinophils% 1.6 % (0-5); Hematocrit 46.7 % (37-47); Hemoglobin 14.7 g/dL (12.0-15.0); Lymphocyte # 2.81 X10^3/ul (0.83-4.51); Lymphocyte % 28.4 % (19-41); Mean Corp Hgb Conc 31.5 g/dL (32-36); Mean Corpuscular Volume 85.7 fL (81-99); Mean Platelet Vol. 11.6 fl (6.2-12.0); Monocyte# 0.65 X10^3/uL; Monocyte% 6.6 % (0-10); NRBC Flagged by Analyzer 0 % (0-5); Neutrophil # 6.14 X10^3/uL (2.7-7.7); Neutrophil % 62.2 % (47-70); Platelet Count 282 K/mm3 (150-450); RBC Distribution Width CV 14.7 % (11.6-14.6); RBC Distribution Width SD 46.5 fl (35.1-43.9); Red Blood Count 5.45 M/mm3 (4.2-5.4); White Blood Count 9.9 K/mm3 (4.4-11.0)
[2024-05-13 13:05] LABS: ALB/GLOB Ratio 0.8 RATIO (0.9-2.4); AST(SGOT) 57 U/L (15-37); Alanine Aminotransfer ALT/SGPT 72 U/L (13-56); Albumin, Serum 3.4 g/dL (3.2-5.0); Alkaline Phosphatase 125 U/L (45-117); Anion Gap 4 (5-15); BUN 11 mg/dL (7-18); BUN/Creat Ratio 12.4 RATIO (10-20); Bilirubin, Direct 0.18 mg/dL (0.00-0.30); Calcium,Total 9.8 mg/dL (8.5-10.1); Chloride 106 mmol/L (98-107); Cholesterol 197 mg/dL (200); Creatinine, Serum 0.88 mg/dL (0.55-1.02); EST Glomerular Filtration Rate 71 mL/min (>60); Est Glom Filt Rate - Afr Amer 85 mL/min (>60); Globulin 4.3 g/dL (2.2-4.2); Glucose 103 mg/dL (74-106); High Density Lipoprotein 34 mg/dL; Lipase 96 U/L (13-75); Potassium 4.2 mmol/L (3.5-5.1); Protein, Total 7.7 g/dL (6.4-8.2); Sodium Level 139 mmol/L (136-145); Triglycerides 272 mg/dL; Very Low Density Lipoprotein 54 mg/dL (5-40)
== END | disposition home or self-care (01) ==
PROVIDERS: PCP Internal Medicine; Referring Provider Internal Medicine; Visit Provider Internal Medicine
DX: Z51.81 Encounter for therapeutic drug level monitoring (principal); L40.50 Arthropathic psoriasis, unspecified; E87.6 Hypokalemia; E78.5 Hyperlipidemia, unspecified; R10.9 Unspecified abdominal pain
CPT/HCPCS: 36415; 80053; 80061; 82248; 83690; 85025; 85652; 86140

== ENCOUNTER → 2024-08-19 | Outpatient (CLI) | payer OTHER, SELFPAY ==
[2024-08-19 12:53] LABS: Erythrocyte Sedimentation Rate 13 mm/hr (0-30)
[2024-08-19 12:55] LABS: Absolute Lymphocyte Count 2.92 X10^3/uL (0.83-4.51); Absolute Neutrophil Count 8.1 X10^3/uL (2.0-7.7); Basophil# 0.08 X10^3/uL; Basophil% 0.7 % (0-1); Eosinophil# 0.16 X10^3/uL; Eosinophils% 1.3 % (0-5); Hematocrit 42.5 % (37-47); Hemoglobin 13.7 g/dL (12.0-15.0); Lymphocyte # 2.92 X10^3/ul (0.83-4.51); Lymphocyte % 24.4 % (19-41); Mean Corp Hgb Conc 32.2 g/dL (32-36); Mean Corpuscular Hgb 27.8 pg (27.0-32.0); Mean Corpuscular Volume 86.4 fL (81-99); Mean Platelet Vol. 11.1 fl (6.2-12.0); Monocyte# 0.64 X10^3/uL; Monocyte% 5.3 % (0-10); NRBC Flagged by Analyzer 0 % (0-5); Neutrophil # 8.14 X10^3/uL (2.7-7.7); Neutrophil % 67.9 % (47-70); Platelet Count 261 K/mm3 (150-450); RBC Distribution Width CV 15.5 % (11.6-14.6); RBC Distribution Width SD 49.1 fl (35.1-43.9); Red Blood Count 4.92 M/mm3 (4.2-5.4)
[2024-08-19 13:20] LABS: Bilirubin, Direct 0.26 mg/dL (0.00-0.30); CRP 9.05 mg/L (0.0-3.0); Cholesterol 198 mg/dL (200); Creatinine, Serum 0.84 mg/dL (0.55-1.02); EST Glomerular Filtration Rate 75 mL/min (>60); Est Glom Filt Rate - Afr Amer 91 mL/min (>60); High Density Lipoprotein 37 mg/dL; Triglycerides 216 mg/dL; Very Low Density Lipoprotein 43 mg/dL (5-40)
[2024-08-19 13:45] LABS: Vitamin D,25 Hydroxy 47.2 ng/mL
[2024-08-19 14:05] LABS: Hemoglobin A1c 5.7 % (3.8-5.6)
[2024-08-19 14:39] LABS: ALB/GLOB Ratio 0.9 RATIO (0.9-2.4); AST(SGOT) 36 U/L (15-37); Alanine Aminotransfer ALT/SGPT 51 U/L (13-56); Albumin, Serum 3.6 g/dL (3.2-5.0); Alkaline Phosphatase 121 U/L (45-117); Anion Gap 5 (5-15); BUN 7 mg/dL (7-18); BUN/Creat Ratio 8.3 RATIO (10-20); Calcium,Total 9.5 mg/dL (8.5-10.1); Chloride 106 mmol/L (98-107); Globulin 3.8 g/dL (2.2-4.2); Glucose 95 mg/dL (74-106); Potassium 3.5 mmol/L (3.5-5.1); Protein, Total 7.4 g/dL (6.4-8.2); Sodium Level 141 mmol/L (136-145)
[2024-08-21 06:37] LABS: AFP, Tumor Marker < 1.8 ng/mL (0.0-9.2)
== END | disposition home or self-care (01) ==
PROVIDERS: PCP Internal Medicine; Referring Provider Internal Medicine; Visit Provider Internal Medicine Rheumatology
DX: L40.50 Arthropathic psoriasis, unspecified (principal); E78.2 Mixed hyperlipidemia; K76.0 Fatty (change of) liver, not elsewhere classified; R73.09 Other abnormal glucose; I11.9 Hypertensive heart disease without heart failure; E55.9 Vitamin D deficiency, unspecified; Z51.81 Encounter for therapeutic drug level monitoring
CPT/HCPCS: 36415; 80053; 80061; 82105; 82248; 82306; 83036; 85025; 85652; 86140

== ENCOUNTER 2024-08-30 12:09 | Day surgery (SDC) | payer OTHER, SELFPAY ==
[2024-08-30] VITALS (8 sets, daily range): BP systolic 102–136; BP diastolic 71–93; PULSE 72–84; RESP 16–18; TEMP 36.6–37; O2SAT 96–100; BMI 43.6
--- NOTE | 2024-08-30 12:50 | PRE.ANES_ITS ---
ASA Classification* ASA Classification ASA Classification: 3 Assessment & Plan Anesthesia* Anesthesia Assessment Anesthesia Assessment: Discussed sedation and/or anesthesia options, risks, benefits, and alternatives with patient/parents/legal guardian/POA. Questions invited. The patient/parents/legal guardian/POA seems to understand and agrees to proceed with anesthesia plan. Reviewed the physical assessment, medical history, allergy history and patient home medications list prior to surgery/procedure/anesthetic and documented any changes. Performed airway and anesthesia risk assessments. Anesthesia Type Anesthesia Type: MAC Anesthesia Focused Assessment* Temperature: 98.6 F Pulse Rate: 84 Blood Pressure: 136/93 Respiratory Rate: 16 Pulse Ox: 99 Airway Assessment Mouth opens: >3 cm Mallampati Score: II Focused Labs Anesthesia Preop lab: CBC WBC 12.0 K/mm3 (4.4-11.0) H 08/19/24 12:31 RBC 4.92 M/mm3 (4.2-5.4) 08/19/24 12:31 Hgb 13.7 g/dL (12.0-15.0) 08/19/24 12:31 Hct 42.5 % (37-47) 08/19/24 12:31 Plt Count 261 K/mm3 (150-450) 08/19/24 12:31 CHEMISTRY Potassium 3.5 mmol/L (3.5-5.1) 08/19/24 12:31 Sodium 141 mmol/L (136-145) 08/19/24 12:31 Magnesium 2.1 mg/dL (1.6-2.6) 12/20/21 15:10 BUN 7 mg/dL (7-18) 08/19/24 12:31 Creatinine 0.84 mg/dL (0.55-1.02) 08/19/24 12:31 Glucose 95 mg/dL (74-106) 08/19/24 12:31 TSH 1.41 uIU/mL (0.358-3.74) 11/09/20 09:55 COAG PT 12.9 SECONDS (11.7-14.9) 12/08/17 07:25 Urine Test Negative Negative 04/30/20 08:45 Tst Clinic Negative 01/01/23 15:59 Pre-Assessment Diagnosis/Proposed Procedure Planned Operative Procedure(s): EGD/CSCOPE Anesthesia History Anesthesia History - c 13 catapult operator: Anesthesia History - c 13 catapult operator Hx Hospitalization No 08/29/24 10:40 Any Problems With Anesthesia No 08/29/24 10:40 Cholinesterase deficiency No 08/29/24 10:40 You/Your Family Experience No 08/29/24 10:40 fever (hyperthermia) with Relationship Recent Exposure to Contagious No 08/30/24 12:40 Disease Does patient have nerve No 08/29/24 10:40 stimulator Patient instructed to have device shut off --Does patient have Pacemaker No 08/30/24 12:40 or ICD? When Was Last Pacemaker Check QUESTION #4 FULL TEXT: You/Your Family Experience fever (hyperthermia) with Anesthesia Last Oral Intake Last Oral intake: Last Oral Intake NPO since 09:00 08/30/24 12:40 Meds taken in AM with sips of No 08/30/24 12:40 water? Meds patient instructed to take am of surgery PONV PONV - c 13 catapult operator: PONV - c 13 catapult operator Female Yes 08/29/24 10:40 HX of Motion Sickness Yes 08/29/24 10:40 HX of N/V After Surgery No 08/29/24 10:40 Non-Smoker No 08/29/24 10:40 Duration of Surgery greater No 08/29/24 10:40 than 60 minutes Number of Risk Factors 2 08/29/24 10:40 PONV Score Moderate Risk 08/29/24 10:40 Height & Weight Height & Weight: Anesthesia: Height & Weight Height 5 ft 5 in 08/30/24 12:40 Weight: 119 kg 08/30/24 12:40 Body Mass Index (BMI) 43.6 08/30/24 12:40 Respiratory Assessment Respiratory Assessment - c 13 catapult operator: Respiratory Tract Infection Hx - c 13 catapult operator Hx Respiratory Tract Infection No 08/29/24 10:40 STOP Sleep Apnea STOP Sleep Apnea - c 13 catapult operator: STOP Sleep Apnea - c 13 catapult operator Hx Hypertension Yes: CONTROLLED WITH MED 08/29/24 10:40 Hx Sleep Apnea Yes 08/29/24 10:40 CPAP Yes 08/29/24 10:40 BIPAP No 08/29/24 10:40 Do you snore loudly (louder than talking or can be heard Do you often feel tired/ fatigued/ sleepy during daytime? Has anyone observed you stop breathing during sleep? STOP Results Positive 08/29/24 10:40 QUESTION #5 FULL TEXT : Do you snore loudly (louder than talking or can be heard through closed doors)? 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 Specify any problems Hx of Preganancy in last 3 No 08/29/24 10:40 Months Nurse Filling Out Transfusion DSCHRIBER 08/29/24 10:40 & Questions: Date: 08/29/24 08/29/24 10:40 Time: 10:41 08/29/24 10:40 Patient unable to answer at this time (ie. confused, unrespo /Reproduction History /Reproductive History - c 13 catapult operator: /Reproductive Hx- c 13 catapult operator Hx Now No 08/29/24 10:40 Gestational Age (in weeks): EDC: Hx Hx Para Hx Section SAB No 08/29/24 10:40 PFS Medical History Post-menopausal Wears glasses History of steroid therapy Arthritis Anemia Fatty liver Back pain Chronic constipation Gastric reflux Smoker CPAP (continuous positive airway pressure) dependence Shortness of breath on exertion History of pain when walking History of edema History of echocardiogram Pain repair of right humerus Asthma Hyperlipidemia Anxiety Depression HTN (hypertension) Home Medications ?Medication ?Instructions ?Recorded ?Last Taken ?Type montelukast 10 mg tablet 10 mg PO QHS 10/27/17 08/29/24 History (Singulair) cholecalciferol (vitamin D3) 125 5,000 unit PO SUTUTHFR 12/02/17 08/28/24 History mcg (5,000 unit) disintegrating tablet losartan 100 1 ea PO DAILY 08/17/18 12/16/24 History mg-hydrochlorothiazide 25 mg tablet omeprazole 20 mg capsule,delayed 20 mg PO DAILY 04/30/18 08/30/24 History release albuterol sulfate 90 mcg/actuation 1 - 2 inh inhalation Q4H PRN PRN 06/28/18 Unknown History aerosol inhaler (ProAir HFA) Asthma guselkumab 100 mg/mL subcutaneous 100 mg subcut Q8W 01/01/23 Unknown History auto-injector (Tremfya) vortioxetine 20 mg tablet 20 mg PO DAILY 01/01/23 08/29/24 History (Trintellix) atenolol 25 mg tablet 25 mg PO DAILY 01/11/24 08/29/24 History buspirone 5 mg tablet 20 mg PO DAILY 01/11/24 08/29/24 History meloxicam 15 mg tablet 15 mg PO DAILY PRN PRN pain 01/11/24 Unknown History potassium chloride 10 mEq 40 meq PO DAILY 01/11/24 08/29/24 History tablet,extended release(part/cryst) apremilast 20 mg tablet (Otezla) 20 mg PO BID 07/01/24 08/29/24 History atorvastatin 20 mg tablet 20 mg PO QDAY 08/29/24 08/29/24 History cholecalciferol (vitamin D3) 125 10,000 unit PO MOWEFR 08/29/24 08/29/24 History mcg (5,000 unit) tablet (Vitamin D3) sulfasalazine 500 mg 500 mg PO BID 08/29/24 08/28/24 History tablet,delayed release Allergy/AdvReac Type Severity Reaction Status Date / Time No Known Allergies Allergy Verified 08/30/24 12:38 Family History Grandmother Cancer pancreatic Surgical History History of dental surgery Hx of colonoscopy History of incisional hernia repair Social History (Updated 08/29/24 @ 13:18 by Katherin Chicas) Smoking Status: Current every day smoker tobacco type: cigarettes alcohol intake: current details: social substance use type: does not use caffeine: Yes what type of physical activity do you participate in: none seatbelt use: always do you feel safe at home: Yes 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
--- NOTE | 2024-08-30 13:06 | PCM.HP.STD ---
HPI - General General Date of Admission: 08/30/24 Date of Service: 08/30/24 Chief Complaint: Nausea and vomiting HPI Narrative JOAN GUDINO, is a 54 F who presents to the office today for establishment with [facility]. Pt was previously seen by Dr. Rodriguez. In September 2023 she went throw a week of vomiting after every meal and underwent GES which was normal. She was going to have an EGD but ultimately decided to establish here instead. She is no longer having n/v. SHe has chronic constipation with a bowel movement every couple of days. She does not take any daily medications for this and would like to avoid this. She does have heartburn that is controlled with PPI therapy. She has never had an EGD. SHe does smoke. [facility] Medical History Post-menopausal Wears glasses History of steroid therapy Arthritis Anemia Fatty liver Back pain Chronic constipation Gastric reflux Smoker CPAP (continuous positive airway pressure) dependence Shortness of breath on exertion History of pain when walking History of edema History of echocardiogram Pain repair of right humerus Asthma Hyperlipidemia Anxiety Depression HTN (hypertension) Home Medications ?Medication ?Instructions ?Recorded ?Last Taken ?Type montelukast 10 mg tablet 10 mg PO QHS 10/27/17 08/29/24 History (Singulair) cholecalciferol (vitamin D3) 125 5,000 unit PO SUTUTHFR 12/02/17 08/28/24 History mcg (5,000 unit) disintegrating tablet losartan 100 1 ea PO DAILY 04/30/18 08/29/24 History mg-hydrochlorothiazide 25 mg tablet omeprazole 20 mg capsule,delayed 20 mg PO DAILY 04/30/18 08/30/24 History release albuterol sulfate 90 mcg/actuation 1 - 2 inh inhalation Q4H PRN PRN 06/28/18 Unknown History aerosol inhaler (ProAir HFA) Asthma guselkumab 100 mg/mL subcutaneous 100 mg subcut Q8W 01/01/23 Unknown History auto-injector (Tremfya) vortioxetine 20 mg tablet 20 mg PO DAILY 01/01/23 08/29/24 History (Trintellix) atenolol 25 mg tablet 25 mg PO DAILY 01/11/24 08/29/24 History buspirone 5 mg tablet 20 mg PO DAILY 01/11/24 08/29/24 History meloxicam 15 mg tablet 15 mg PO DAILY PRN PRN pain 01/11/24 Unknown History potassium chloride 10 mEq 40 meq PO DAILY 01/11/24 08/29/24 History tablet,extended release(part/cryst) apremilast 20 mg tablet (Otezla) 20 mg PO BID 07/01/24 08/29/24 History atorvastatin 20 mg tablet 20 mg PO QDAY 08/29/24 08/29/24 History cholecalciferol (vitamin D3) 125 10,000 unit PO MOWEFR 08/29/24 08/29/24 History mcg (5,000 unit) tablet (Vitamin D3) sulfasalazine 500 mg 500 mg PO BID 08/29/24 08/28/24 History tablet,delayed release Allergy/AdvReac Type Severity Reaction Status Date / Time No Known Allergies Allergy Verified 08/30/24 12:38 Family History Grandmother Cancer pancreatic Surgical History History of dental surgery Hx of colonoscopy History of incisional hernia repair Social History Smoking Status: Current every day smoker tobacco type: cigarettes alcohol intake: current details: social substance use type: does not use caffeine: Yes what type of physical activity do you participate in: none seatbelt use: always do you feel safe at home: Yes 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 Constitutional Constitutional: Denies fatigue, fever(s), poor appetite, weight gain or weight loss Gastrointestinal Gastrointestinal: Denies belching, bloating, change in bowel habits, change in stool character, chewing difficulty, coffee ground emesis, constipation, cramping, diarrhea, dyspepsia, dysphagia, early satiety, excessive flatus, fecal incontinence, heartburn, hematemesis, hematochezia, hemorrhoids, loose stools, melena, nausea, odynophagia, rectal bleeding, tenesmus, vomiting or weight changes Vital Signs Vital Signs Vital Signs: 08/30/24 12:40 08/30/24 12:40 08/30/24 12:51 Temperature 98.6 F 98.6 F Temperature Source Temporal Pulse Rate 84 84 Respiratory Rate 16 16 Respiratory Pattern Normal Blood Pressure 136/93 H 136/93 H Blood Pressure Mean 107 Blood Pressure Source Monitor Blood Pressure Position Semi-Fowlers Blood Pressure Location Left Arm Pulse Ox 99 99 Oxygen Delivery Method Room Air Weight Weight: 262 lb 5.601 oz Body Mass Index (BMI) 43.6 Physical Exam Const alert, oriented x3, no apparent distress and healthy appearing General Appearance: cooperative GI normal to inspection, nondistended, normoactive bowel sounds, soft to palpation, non-tender and non-distended Percussion: normal to percussion Rectal Exam: deferred Assessment & Plan Assessment/Plan (1) GERD (gastroesophageal reflux disease): PLAN: 54 yo female here today for establishment. SHe has no acute GI concerns but does have a hx of GERD and constipation. Heartburn is well controlled with omeprazole BID. She does not take daily medications for constipation but does not wish to at this time. We can consider Linzess in the future. Her last colonoscopy was a few years ago with polyps. We will get her records to see if she needs another now. She will also undergo EGD to assess her heartburn as she has had it chronically and has rf for cancer such as smoking. I have examined the patient and the H&P has been reviewed. There are no clinical changes since date of exam.
--- NOTE | 2024-08-30 13:30 | COLBX_PTH ---
PATIENT: JOAN GUDINO LOC: EN U#:[id number] AGE/SX: 54/F ROOM: RE08/30/[address]: Dr. Edwin Burris DO : 1970 BED: DIS: 08/30/2024 SPEC #: [id number] RECD: 08/31/24 07:26 STATUS: MOSES GILLIAN #: [id number] JUAN: 08/30/24 13:[address]: Edwin Burris DEPT: SURGICAL PATHOLOGY RECD BY: Joselo Dimas ENTERED: 08/31/24 11:26 SP TYPE: COLON BX OTHR DR: Dr. Candelaria John DO Tissues: A - Duodenum, NOS B - Gastric mucous membrane C - COLON BIOPSY D - COLON BIOPSY E - SPLENIC FLEXURE Procedures: Surgery Specimen Level IV HEADER OPERATION: Colonoscopy with biopsy and polypectomy, EGD PRE-OP DIAGNOSIS: GERD TISSUE SUBMITTED: A- Duodenum biopsy, B- Gastric antrum biopsy, C- Hepatic flexure polyp biopsy x2, D- Random colon biopsy, E- Splenic flexure polyp MICROSCOPIC DIAGNOSIS A. Duodenum, biopsy: No pathologic change. B. Gastric antrum, biopsy: Minimal chronic inflammation. See comment. C. Colonic polyp at hepatic flexure, biopsy: Fragments of tubular adenoma. D. Colon, random biopsy: No pathologic change. E. Colonic polyp at splenic flexure, biopsy: Fragments of tubular adenoma. . 09/01/2024 COMMENT B. The results of immunohistochemistry for Helicobacter pylori will be reported separately ([id number]). MICROSCOPIC DESCRIPTION Slides are reviewed. GROSS DESCRIPTION A. Received in fixative is one container labeled with the patient's name and designated Duodenum biopsy. The specimen consists of multiple irregular fragments of light carnes soft tissue that in aggregate measure 1.0 x 0.5 x 0.1 cm. The specimen is totally submitted in one cassette. B. Received in fixative is one container labeled with the patient's name and designated Gastric antrum biopsy. The specimen consists of two irregular fragments of light carnes soft tissue that in aggregate measure 0.6 x 0.3 x 0.1 cm. The specimen is totally submitted in one cassette. C. Received in fixative is one container labeled with the patient's name and designated Hepatic flexure polyp biopsy x2. The specimen consists of multiple irregular fragments of light carnes soft tissue that in aggregate measure 1.0 x 0.3 x 0.1 cm. The specimen is totally submitted in one cassette. D. Received in fixative is one container labeled with the patient's name and designated Random colon biopsy. The specimen consists of multiple irregular fragments of light carnes soft tissue that in aggregate measure 2.0 x 0.3 x 0.1 cm. The specimen is totally submitted in one cassette. E. Received in fixative is one container labeled with the patient's name and designated Splenic flexure polyp biopsy. The specimen consists of multiple irregular fragments of light carnes soft tissue that in aggregate measure 1.5 x 0.3 x 0.1 cm. The specimen is totally submitted in one cassette. SJ.mr 08/31/2024 TC:5 CPT:46244e3
--- NOTE | 2024-08-30 13:30 | IMM_PTH ---
PATIENT: JOAN GUDINO LOC: EN U#:[id number] AGE/SX: 54/F ROOM: RE08/30/[address]: Dr. Edwin Burris DO : 1970 BED: DIS: 08/30/2024 SPEC #: [id number] RECD: 08/31/24 11:24 STATUS: MOSES REQ #: [id number] JUAN: 08/30/24 13:[address]: Edwin Burris DEPT: IMMUNOHISTOCHEMISTRY RECD BY: Tom Kingsley ENTERED: 08/31/24 11:24 SP TYPE: IMMUNO OTHR DR: Dr. Candelaria John DO Tissues: B - Gastric mucous membrane Procedures: H Pylori (initial) PHYSICIAN & INSTITUTION [place] [address] SPECIMEN INFORMATION: Tissue Source: B- Gastric antrum biopsy Clinical Info: GERD Specimen Number: [id number] CPT code: 50964 METHODOLOGY: Deparaffinized sections of prefer/formalin-fixed tissue or PAP/DQ stained slides are incubated with monoclonal/polyclonal antibodies/oligonucleotide probes. Localization is made via biotin free immunoperoxidase method. Appropriate controls are performed and reacted as expected. Results on target cell population are indicated in the following table: RESULTS: ANTIBODY / CLONE RESULT Block B H Pylori (polyclonal) negative These tests were developed and their performance characteristics determined by [facility]. They may not have been cleared or approved by the U.S. Food and Drug Administration. The FDA has determined that such clearance or approval is not necessary. The above immunohistochemical/dualISH markers are ordered and reviewed by the Pathologist. INTERPRETATION: B. Gastric antrum, biopsy: Negative for Helicobacter pylori organisms. 09/01/2024
--- NOTE | 2024-08-30 14:25 | OP.EGD_ITS ---
Patient Name: Tyson Irizarry Procedure Date: 08/30/2024 1:35 PM Date of : 1970 Age: 54 Procedure: Upper GI endoscopy Indications: Epigastric abdominal pain Providers: Edwin Burris DO Referring MD: Candelaria John Medicines: Monitored Anesthesia Care Patient Profile: This is a 54 year old female. Refer to note in patient chart for documentation of history and physical. Patient has symptoms of chronic epigastric abdominal pain, chronic regurgitation and chronic vomiting. Complications: No immediate complications. Procedure: Pre-Anesthesia Assessment: - Prior to the procedure, a History and Physical was performed, and patient medications and allergies were reviewed. The patient is competent. The risks and benefits of the procedure and the sedation options and risks were discussed with the patient. All questions were answered and informed consent was obtained. Patient identification and proposed procedure were verified by the physician in the pre-procedure area. Mental Status Examination: alert and oriented. Airway Examination: normal oropharyngeal airway and neck mobility. Respiratory Examination: clear to auscultation. Prophylactic Antibiotics: The patient does not require prophylactic antibiotics. Prior Anticoagulants: The patient has taken no anticoagulant or antiplatelet agents. ASA Grade Assessment: II - A patient with mild systemic disease. After reviewing the risks and benefits, the patient was deemed in satisfactory condition to undergo the procedure. The anesthesia plan was to use monitored anesthesia care (MAC). Immediately prior to administration of medications, the patient was re-assessed for adequacy to receive sedatives. The heart rate, respiratory rate, oxygen saturations, blood pressure, adequacy of pulmonary ventilation, and response to care were monitored throughout the procedure. The physical status of the patient was re-assessed after the procedure. After obtaining informed consent, the endoscope was passed under direct vision. Throughout the procedure, the patient's blood pressure, pulse, and oxygen saturations were monitored continuously. The Colonoscope was introduced through the mouth, and advanced to the second part of duodenum. The upper GI endoscopy was accomplished without difficulty. The patient tolerated the procedure well. Scope In: 1:49:00 PM Scope Out: 1:54:15 PM Total Procedure Duration Time 0 hours 5 minutes 15 seconds Findings: The examined esophagus was normal. A small hiatal hernia was present. Patchy moderately erythematous mucosa without bleeding was found in the gastric body. Biopsies were taken with a cold forceps for histology. Verification of patient identification for the specimen was done. Estimated blood loss was minimal. Biopsies were taken with a cold forceps for Helicobacter pylori testing. Verification of patient identification for the specimen was done. Estimated blood loss was minimal. Patchy mild inflammation characterized by congestion (edema) was found in the duodenal bulb. Biopsies were taken with a cold forceps for histology. Verification of patient identification for the specimen was done. Estimated blood loss was minimal. Impression: - Normal esophagus. - Small hiatal hernia. - Erythematous mucosa in the gastric body. Biopsied. - Chronic duodenitis. Biopsied. Recommendation: - Discharge patient to home. - Resume previous diet. - Continue present medications. - Await pathology results. Procedure Code(s): --- Professional --- 87640, Esophagogastroduodenoscopy, flexible, transoral; with biopsy, single or multiple CPT copyright 2021 [employer]. All rights reserved. The codes documented in this report are preliminary and upon shipping packer review may be revised to meet current compliance requirements. Edwin Burris DO 08/30/2024 2:24:55 PM This report has been signed electronically. Number of Addenda: 0 Note Initiated On: 08/30/2024 1:35 PM
--- NOTE | 2024-08-30 14:25 | OP.CCLET_ITS ---
08/30/2024 Candelaria John Re : Upper GI endoscopy procedure for Tyson John This procedure was performed on Friday, August 30, 2024. My impressions and recommendations are as follows: Impressions : - Normal esophagus. - Small hiatal hernia. - Erythematous mucosa in the gastric body. Biopsied. - Chronic duodenitis. Biopsied. Recommendations : - Discharge patient to home. - Resume previous diet. - Continue present medications. - Await pathology results. My findings are described in the full procedure note, which is enclosed. If I can be of further assistance, please feel free to contact me at . Sincerely, Edwin Burris, 08/30/2024 2:24:55 PM This report has been signed electronically.
--- NOTE | 2024-08-30 14:27 | PCM.POST.ANE ---
Anesthesia: Postop Eval I Current Vital Signs Temperature: 98.4 F Pulse Rate: 76 Blood Pressure: 103/71 Respiratory Rate: 16 Pulse Ox: 98 Oxygen Delivery Method: Room Air Assessment Airway patent: Yes Spontaneous unlabored respirations: Yes Mental status: Awake and Calm nausea: No Vomiting: No Anesthesia Complication: No Fluid Hydration Crystalloid volume administer (ml): 90 Total IV fluid infused: 90 Progress Note Anesthesia document: Postop Eval 1 completed: Yes
--- NOTE | 2024-08-30 14:32 | OP.COLON_ITS ---
Patient Name: Tyson Irizarry Procedure Date: 08/30/2024 1:54 PM Date of : 1970 Age: 54 Procedure: Colonoscopy Indications: High risk colon cancer surveillance: Personal history of colonic polyps Providers: Edwin Burris DO Referring MD: Candelaria John Medicines: Monitored Anesthesia Care Patient Profile: This is a 54 year old female. Refer to note in patient chart for documentation of history and physical. Patient has symptoms of chronic epigastric abdominal pain, chronic regurgitation and chronic vomiting. Last Colonoscopy: 5 years ago. Complications: No immediate complications. Procedure: Pre-Anesthesia Assessment: - Prior to the procedure, a History and Physical was performed, and patient medications and allergies were reviewed. The patient is competent. The risks and benefits of the procedure and the sedation options and risks were discussed with the patient. All questions were answered and informed consent was obtained. Patient identification and proposed procedure were verified by the physician in the pre-procedure area. Mental Status Examination: alert and oriented. Airway Examination: normal oropharyngeal airway and neck mobility. Respiratory Examination: clear to auscultation. Prophylactic Antibiotics: The patient does not require prophylactic antibiotics. Prior Anticoagulants: The patient has taken no anticoagulant or antiplatelet agents. ASA Grade Assessment: II - A patient with mild systemic disease. After reviewing the risks and benefits, the patient was deemed in satisfactory condition to undergo the procedure. The anesthesia plan was to use monitored anesthesia care (MAC). Immediately prior to administration of medications, the patient was re-assessed for adequacy to receive sedatives. The heart rate, respiratory rate, oxygen saturations, blood pressure, adequacy of pulmonary ventilation, and response to care were monitored throughout the procedure. The physical status of the patient was re-assessed after the procedure. After I obtained informed consent, the scope was passed under direct vision. Throughout the procedure, the patient's blood pressure, pulse, and oxygen saturations were monitored continuously. The Colonoscope was introduced through the anus and advanced to the cecum, identified by appendiceal orifice and ileocecal valve. The colonoscopy was performed with ease. The patient tolerated the procedure well. The quality of the bowel preparation was adequate. The ileocecal valve, appendiceal orifice, and rectum were photographed. Scope In: 1:57:07 PM Scope Withdrawal Time 0 hours 13 minutes 16 seconds Scope Out: 2:16:27 PM Total Procedure Duration Time 0 hours 19 minutes 20 seconds Findings: The perianal and digital rectal examinations were normal. A few small-mouthed diverticula were found in the recto-sigmoid colon and sigmoid colon. Two sessile polyps were found in the hepatic flexure. The polyps were 8 mm in size. These polyps were removed with a jumbo cold forceps. Resection and retrieval were complete. Verification of patient identification for the specimen was done. Estimated blood loss was minimal. A 10 mm polyp was found in the splenic flexure. The polyp was sessile. The polyp was removed with a hot snare. Resection and retrieval were complete. Verification of patient identification for the specimen was done. Estimated blood loss was minimal. An area of mildly congested mucosa was found in the sigmoid colon. Biopsies for histology were taken with a cold forceps from the ascending colon, right colon, transverse colon, right transverse colon, descending colon, sigmoid colon and rectum for evaluation of microscopic colitis. Impression: - Diverticulosis in the recto-sigmoid colon and in the sigmoid colon. - Two 8 mm polyps at the hepatic flexure, removed with a jumbo cold forceps. Resected and retrieved. - One 10 mm polyp at the splenic flexure, removed with a hot snare. Resected and retrieved. - Congested mucosa in the sigmoid colon. Biopsied. Recommendation: - Discharge patient to home. - Resume previous diet. - Continue present medications. - Await pathology results. - Repeat colonoscopy in 3 years for surveillance. Procedure Code(s): --- Professional --- 04878, Colonoscopy, flexible; with removal of tumor(s), polyp(s), or other lesion(s) by snare technique 85728, 59, Colonoscopy, flexible; with biopsy, single or multiple CPT copyright 2021 [employer]. All rights reserved. The codes documented in this report are preliminary and upon manager generation review may be revised to meet current compliance requirements. Edwin Burris DO 08/30/2024 2:31:50 PM This report has been signed electronically. Number of Addenda: 0 Note Initiated On: 08/30/2024 1:54 PM
--- NOTE | 2024-08-30 14:32 | OP.CCLET_ITS ---
08/30/2024 Candelaria John Re : Colonoscopy procedure for Tyson John This procedure was performed on Friday, August 30, 2024. My impressions and recommendations are as follows: Impressions : - Diverticulosis in the recto-sigmoid colon and in the sigmoid colon. - Two 8 mm polyps at the hepatic flexure, removed with a jumbo cold forceps. Resected and retrieved. - One 10 mm polyp at the splenic flexure, removed with a hot snare. Resected and retrieved. - Congested mucosa in the sigmoid colon. Biopsied. Recommendations : - Discharge patient to home. - Resume previous diet. - Continue present medications. - Await pathology results. - Repeat colonoscopy in 3 years for surveillance. My findings are described in the full procedure note, which is enclosed. If I can be of further assistance, please feel free to contact me at . Sincerely, Edwin Burris, 08/30/2024 2:31:50 PM This report has been signed electronically.
--- NOTE | 2024-08-30 18:55 | PCM.POSTANE2 ---
Anesthesia Postop Eval I Sum Postop Eval Completion status Anesthesia document: Postop Eval 1 completed: Yes Anesthesia Postop Eval I Summary Anesthesia Postop Eval I Summary: Anesthesia Postop Eval I: Assessment Summary Airway patent Yes 08/30/24 14:28 [email or web address] Spontaneous unlabored Yes 08/30/24 14:28 [email or web address] respirations Mental status Awake,Calm 08/30/24 14:28 [email or web address] nausea No 08/30/24 14:28 [email or web address] Vomiting No 08/30/24 14:28 [email or web address] Anesthesia Postop Eval I: Fluid Summary Crystalloid volume administer 90 08/30/24 14:28 [email or web address] (ml) Colloids volume administered ( ml) Blood Product volume administered (ml) Total IV fluid infused 90 08/30/24 14:28 [email or web address] Anesthesia Postop Eval I: Summary Notes Anesthesia Complication No 08/30/24 14:28 [email or web address] Anesthesia Complication Comment: Post-operative progress note Anesthesia: Postop Eval II Evaluation Mental status: Awake Pain Level: 0 nausea: No Vomiting: No
== END 2024-08-30 14:54 | disposition home or self-care (01) ==
LOC: EN 12:10 → AC 12:11
PROVIDERS: PCP Internal Medicine; Referring Provider Internal Medicine; Visit Provider Internal Medicine Gastroenterology
PROC: 0DJD8ZZ Inspection of Lower Intestinal Tract, Via Natural or Artificial Opening Endoscopic (ICD-10-PCS; CPT 45378; principal; 2024-08-30 13:25)
DX: Z12.11 Encounter for screening for malignant neoplasm of colon (principal); K44.9 Diaphragmatic hernia without obstruction or gangrene; K57.30 Diverticulosis of large intestine without perforation or abscess without bleeding; K29.80 Duodenitis without bleeding; E78.5 Hyperlipidemia, unspecified; I10 Essential (primary) hypertension; Z86.0100 Personal history of colon polyps, unspecified; K21.00 Gastro-esophageal reflux disease with esophagitis, without bleeding; J45.909 Unspecified asthma, uncomplicated; Z79.899 Other long term (current) drug therapy; F17.210 Nicotine dependence, cigarettes, uncomplicated; D12.3 Benign neoplasm of transverse colon
CPT/HCPCS: 45385; 45380; 43239; 88305; 88342; A4216; J2405

== ENCOUNTER 2024-11-06 13:23 | Emergency (ER) | payer OTHER, SELFPAY ==
[2024-11-06 13:24] VITALS: BP 144/96; PULSE 77; RESP 18; TEMP 36.6; O2SAT 94; BMI 46.3
--- NOTE | 2024-11-06 13:37 | EX.ED.DYSGE1 ---
HPI <NINA Velez - Last Filed: 11/06/24 15:12> History of Present Illness Chief Complaint: Abd Pain Narrative Narrative: 54-year-old female with past medical history of HTN, HLD, GERD, psoriatic arthritis, hernia repair, cholecystectomy presents with sudden onset RLQ abdominal pain that started around midnight. Pain comes in waves and doubles her over. If she puts light pressure with her hand on her abdomen she feels a little better but otherwise nothing makes it better or worse. She has no fever chills, nausea or vomiting, or bladder or bowel changes. PFSH <NINA Velez - Last Filed: 11/06/24 15:12> [facility] Medical History Post-menopausal Wears glasses History of steroid therapy Arthritis Anemia Fatty liver Back pain Chronic constipation Gastric reflux Smoker CPAP (continuous positive airway pressure) dependence Shortness of breath on exertion History of pain when walking History of edema History of echocardiogram Pain repair of right humerus Asthma Hyperlipidemia Anxiety Depression HTN (hypertension) Home Medications ?Medication ?Instructions ?Recorded ?Last Taken ?Type montelukast 10 mg tablet 10 mg PO QHS 10/27/17 08/29/24 History (Singulair) cholecalciferol (vitamin D3) 125 5,000 unit PO SUTUTHFR 12/02/17 08/28/24 History mcg (5,000 unit) disintegrating tablet losartan 100 1 ea PO DAILY 04/30/18 08/29/24 History mg-hydrochlorothiazide 25 mg tablet omeprazole 20 mg capsule,delayed 20 mg PO DAILY 04/30/18 08/30/24 History release albuterol sulfate 90 mcg/actuation 1 - 2 inh inhalation Q4H PRN PRN 06/28/18 Unknown History aerosol inhaler (ProAir HFA) Asthma guselkumab 100 mg/mL subcutaneous 100 mg subcut Q8W 01/01/23 Unknown History auto-injector (Tremfya) vortioxetine 20 mg tablet 20 mg PO DAILY 01/01/23 08/29/24 History (Trintellix) atenolol 25 mg tablet 25 mg PO DAILY 01/11/24 08/29/24 History buspirone 5 mg tablet 20 mg PO DAILY 01/11/24 08/29/24 History meloxicam 15 mg tablet 15 mg PO DAILY PRN PRN pain 01/11/24 Unknown History potassium chloride 10 mEq 40 meq PO DAILY 01/11/24 08/29/24 History tablet,extended release(part/cryst) apremilast 20 mg tablet (Otezla) 20 mg PO BID 07/01/24 08/29/24 History atorvastatin 20 mg tablet 20 mg PO QDAY 08/29/24 08/29/24 History cholecalciferol (vitamin D3) 125 10,000 unit PO MOWEFR 08/29/24 08/29/24 History mcg (5,000 unit) tablet (Vitamin D3) sulfasalazine 500 mg 500 mg PO BID 08/29/24 08/28/24 History tablet,delayed release sucralfate 100 mg/mL oral 10 ml PO .qid 7 days #300 mL 11/06/24 Unknown Rx suspension (Carafate) Allergy/AdvReac Type Severity Reaction Status Date / Time No Known Allergies Allergy Verified 11/06/24 13:24 Family History Grandmother Cancer pancreatic Surgical History History of dental surgery Hx of colonoscopy History of incisional hernia repair Social History Smoking Status: Current every day smoker tobacco type: cigarettes alcohol intake: current details: social substance use type: does not use caffeine: Yes what type of physical activity do you participate in: none seatbelt use: always do you feel safe at home: Yes 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 CVS: Negative for chest pain. Respiratory: Negative for shortness of breath, cough. GI: Positive for abdominal pain. No vomiting, diarrhea, constipation, melena, hematochezia. : Negative for dysuria, hematuria or frequency. EXAM <NINA Velez - Last Filed: 11/06/24 15:12> Physical Exam Narrative Exam Narrative: CONST: Patient sitting in no acute distress. EYES: Normal inspection. NECK: Normal inspection. RESP: No respiratory distress, CTAB. CVS: Regular rate and rhythm, no murmur, no gallop. ABD: Soft and nontender, no guarding or rebound, nondistended. Back: Normal inspection, no CVA tenderness. SKIN: Color normal, no rash, warm, dry, intact. EXTREMITIES: Normal appearance, no pedal edema. NEURO: Alert and answering questions appropriately. PSYCH: Normal affect. Const Vital Signs: 11/06/24 13:24 Temperature 98 F Temperature Source Oral Pulse Rate 77 Respiratory Rate 18 Blood Pressure 144/96 H Blood Pressure Mean 112 Pulse Ox 94 Oxygen Delivery Method Room Air <Dr. Manuel Osorio DO - Last Filed: 11/06/24 16:32> Physical Exam Const Vital Signs: 11/06/24 13:24 Temperature 98 F Temperature Source Oral Pulse Rate 77 Respiratory Rate 18 Blood Pressure 144/96 H Blood Pressure Mean 112 Pulse Ox 94 Oxygen Delivery Method Room Air MDM <NINA Velez - Last Filed: 11/06/24 15:12> [facility] MDM Narrative Medical decision making narrative: Differential includes but not limited to GERD/gastritis, pancreatitis, appendicitis, kidney stone 54-year-old female has had sudden onset right sided abdominal pain that started last night. It comes and goes in waves. She has nausea with no other associated symptoms. She appears well and nontoxic. Vital signs stable. She is normal cardiopulmonary exam. Abdomen is soft with no reproducible tenderness. She has no flank tenderness. CBC shows WBC of 14.8, otherwise unremarkable. CMP and lipase are all within normal limits. Urinalysis negative. CT of the abdomen/pelvis shows no acute findings. She has a history of gastritis and chronic duodenitis which was most recently seen on EGD and colonoscopy on 08/30/2024. She is on omeprazole once daily and was told by Dr. Burris if symptoms flare to increase to twice daily which she did this morning. I recommended she continue PPI twice daily and I prescribed Carafate. We discussed dietary changes and recommended follow-up with PCP and GI. Return precautions were discussed and she was discharged in stable condition. External records reviewed: 08/30/2024 EGD shows small hiatal hernia, gastric body erythematous mucosa, chronic duodenitis. Colonoscopy showed diverticulosis, several polyps were resected. Lab Data Attestation: I reviewed the patient's lab results. Labs: Laboratory Results - last 24 hr 11/06/24 11/06/24 13:40 13:50 WBC 14.8 H RBC 5.13 Hgb 14.4 Hct 43.9 MCV 85.6 MCH 28.1 MCHC 32.8 RDW Std Deviation 49.8 H RDW Coeff of Erica 15.9 H Plt Count 282 MPV 10.6 Immature Gran % (Auto) 0.400 Neut % (Auto) 73.5 H Lymph % (Auto) 18.9 L [place] % (Auto) 5.9 Eos % (Auto) 0.9 Baso % (Auto) 0.4 Absolute Neuts (auto) 10.9 H Absolute Lymphs (auto) 2.79 Nucleated RBC % 0 Sodium 138 Potassium 3.7 Chloride 104 Carbon Dioxide 28.0 Anion Gap 7 BUN 13 Creatinine 0.79 Estim Creat Clear Calc 107.70 Est GFR (MDRD) Af Amer 97 Est GFR (MDRD) Non-Af 80 BUN/Creatinine Ratio 16.4 Glucose 95 Calcium 9.4 Total Bilirubin 0.60 AST 20 ALT 34 Alkaline Phosphatase 109 Total Protein 7.3 Albumin 3.4 Globulin 3.9 Albumin/Globulin Ratio 0.9 Lipase 92 Urine Color Yellow Urine Clarity Clear Urine pH 6.0 Ur Specific Barton 1.015 Urine Protein 30 H Urine Glucose (UA) Normal Urine Ketones Negative Urine Occult Blood Negative Urine Nitrite Negative Urine Bilirubin Negative Urine Urobilinogen Normal Ur Leukocyte Esterase Negative Urine RBC 0-5 SEEN Urine WBC 0 SEEN Ur Squamous Epith Cells 0-5 SEEN Urine Bacteria 1+ Urine Mucus 0 SEEN Radiography Diagnostic Testing: Clinical Impression(s) from Imaging Studies Abdomen/Pelvis CT 11/06/24 13:48 IMPRESSION: 1. No acute or significant CT abnormality in the abdomen and pelvis. 2. Probable hepatic cysts 3. Other findings as above One or more dose reduction techniques were used (e.g., Automated exposure control, adjustment of the mA and/or kV according to patient size, use of iterative reconstruction technique). Reading Location: MEET <Dr. Manuel Osorio, DO - Last Filed: 11/06/24 16:32> [facility] Lab Data Labs: Laboratory Results - last 24 hr 11/06/24 11/06/24 13:40 13:50 WBC 14.8 H RBC 5.13 Hgb 14.4 Hct 43.9 MCV 85.6 MCH 28.1 MCHC 32.8 RDW Std Deviation 49.8 H RDW Coeff of Erica 15.9 H Plt Count 282 MPV 10.6 Immature Gran % (Auto) 0.400 Neut % (Auto) 73.5 H Lymph % (Auto) 18.9 L [place] % (Auto) 5.9 Eos % (Auto) 0.9 Baso % (Auto) 0.4 Absolute Neuts (auto) 10.9 H Absolute Lymphs (auto) 2.79 Nucleated RBC % 0 Sodium 138 Potassium 3.7 Chloride 104 Carbon Dioxide 28.0 Anion Gap 7 BUN 13 Creatinine 0.79 Estim Creat Clear Calc 107.70 Est GFR (MDRD) Af Amer 97 Est GFR (MDRD) Non-Af 80 BUN/Creatinine Ratio 16.4 Glucose 95 Calcium 9.4 Total Bilirubin 0.60 AST 20 ALT 34 Alkaline Phosphatase 109 Total Protein 7.3 Albumin 3.4 Globulin 3.9 Albumin/Globulin Ratio 0.9 Lipase 92 Urine Color Yellow Urine Clarity Clear Urine pH 6.0 Ur Specific Barton 1.015 Urine Protein 30 H Urine Glucose (UA) Normal Urine Ketones Negative Urine Occult Blood Negative Urine Nitrite Negative Urine Bilirubin Negative Urine Urobilinogen Normal Ur Leukocyte Esterase Negative Urine RBC 0-5 SEEN Urine WBC 0 SEEN Ur Squamous Epith Cells 0-5 SEEN Urine Bacteria 1+ Urine Mucus 0 SEEN Radiography Diagnostic Testing: Clinical Impression(s) from Imaging Studies Abdomen/Pelvis CT 11/06/24 13:48 IMPRESSION: 1. No acute or significant CT abnormality in the abdomen and pelvis. 2. Probable hepatic cysts 3. Other findings as above One or more dose reduction techniques were used (e.g., Automated exposure control, adjustment of the mA and/or kV according to patient size, use of iterative reconstruction technique). Reading Location: MEET Treatment and Re-Evaluation :: I have personally performed a face to face assessment of the patient and have reviewed the DARBY Note. I performed a substantive portion of the visit including all aspects of the following. My silvestre findings include: History: Patient presents with abdominal pain that began yesterday. Patient states it comes and goes. Patient describes her pain as sharp. Patient states pain is over the right side of her abdomen. Patient states it is worse with certain movements. Patient states it is better when she will to pressure over the right side of her abdomen. Patient admits to some nausea but denies any vomiting. Patient denies any diarrhea, melena, or hematochezia. Patient denies any dysuria, frequency, or hematuria. Patient admits to a decreased appetite. Patient denies any fevers or chills. Exam: Vital signs are stable. Patient is afebrile. Patient is in no acute distress. Oral mucosa is pink and moist. Neck is supple. Trachea is midline. There is no JVD. Heart was regular rate and rhythm. Lungs are clear and equal bilaterally. There is good respiratory effort noted. Abdomen is soft. Bowel sounds are normal. There is some tenderness over the right upper quadrant and mild tenderness over the right lower quadrant. There is no rebound or guarding noted. Cranial nerves II through XII are intact. There are no focal motor or sensory deficits noted. Medical Decision Making: Differential diagnosis includes ureteral calculus, pyelonephritis, peptic ulcer disease, duodenal ulcer, cholecystitis, cholelithiasis, pancreatitis, and viral illness. CT scan of the abdomen and pelvis will be obtained to assess for ureteral calculus and pyelonephritis. CBC will be obtained to assess for leukocytosis and anemia. Comprehensive metabolic profile will be obtained to assess for hepatic function, renal function, and electrolyte abnormality. Urinalysis will be obtained to assess for urinary tract infection and hematuria. Lipase will be obtained to assess for pancreatitis. Patient was given IV fluids, morphine, Zofran, and Toradol. CBC was reviewed. There is a mild leukocytosis of 14.8. Comprehensive metabolic profile was reviewed and was within normal limits. Lipase was reviewed and was normal at 92. Urinalysis was reviewed. There is no evidence of urinary tract infection or hematuria. CT scan of the abdomen and pelvis was obtained. There is no acute abnormality noted. This was interpreted by the radiologist and was also independently reviewed by myself. Patient was advised of her findings. Patient had a recent EGD which showed duodenitis. Patient was advised that her pain could be coming from this. Patient was instructed to follow-up with her primary care physician in 5 to 7 days. Patient was instructed to return if worse in any way. Patient understood and was agreeable with plan. All questions were answered. Discharge Plan Triage Chief Complaint: Abd Pain ED Midlevel Provider: Lucy Bhandari ED Provider: Manuel Osorio Dx/Rx/DC Orders Clinical Impression: Abdominal pain, History of peptic ulcer disease Instructions: Abdominal Pain Prescriptions: New sucralfate [Carafate] 100 mg/mL suspension 10 ml PO .qid 7 Days Qty: 300 0RF Rx Instructions: take 1 hour before meals and at bedtime No Action montelukast [Singulair] 10 mg tablet 10 mg PO QHS Trintellix 20 mg tablet 20 mg PO DAILY Tremfya 100 mg/mL auto-injector 100 mg subcut Q8W atenolol 25 mg tablet 25 mg PO DAILY meloxicam 15 mg tablet 15 mg PO DAILY PRN PRN (Reason: pain) Otezla 20 mg tablet 20 mg PO BID atorvastatin 20 mg tablet 20 mg PO QDAY potassium chloride 10 mEq tablet,ER particles/crystals 40 meq PO DAILY Patient Comments: supplement cholecalciferol (vitamin D3) 5,000 UNIT tablet,disintegrating 5,000 unit PO SUTUTHFR buspirone 5 mg tablet 20 mg PO DAILY losartan-hydrochlorothiazide 1 EACH tablet 1 ea PO DAILY omeprazole 20 MG capsule 20 mg PO DAILY albuterol sulfate [ProAir HFA] 1 PUFF inhaler 1 - 2 inh inhalation Q4H PRN PRN (Reason: Asthma) cholecalciferol (vitamin D3) [Vitamin D3] 125 mcg (5,000 unit) tablet 10,000 unit PO MOWEFR sulfasalazine 500 mg tablet,delayed release (DR/EC) 500 mg PO BID Primary Care Provider: Candelaria John Referrals: Candelaria John DO [Primary Care Provider] - Activity Restrictions/Additional Instructions: Your labs and CT scan were normal. This could be a flareup of your gastritis/duodenitis which was seen on your recent GI testing in August. Take your omeprazole twice a day and I prescribed sucralfate which you take 1 hour before each meal and at bedtime. Avoid ibuprofen or aspirin. Follow-up with your PCP and GI. Print Language: Albanian Disposition Disposition: Home, Self Care
[2024-11-06] MEDS: Ketorolac 15 MG/ML Vial IV (13:48)
[2024-11-06] MEDS: Ondansetron 4 MG/2 ML Vial IV (13:48)
[2024-11-06] MEDS: Morphine 4 MG/ML Syringe IV (13:48)
--- NOTE | 2024-11-06 13:48 | CT_ITS ---
PROCEDURE: ABDOMEN/PELVIS WITHOUT CONT REASON FOR EXAM: Right lower quadrant pain TECHNIQUE: Abdomen and pelvis CT without intravenous contrast. COMPARISON: 11/02/2023 FINDINGS: Lung bases: Clear Liver: Hypodense masses in the right and left hepatic lobes measuring up to 16 mm. Gallbladder: Surgically absent. Spleen: Normal size. Pancreas: Normal size without evidence of mass surrounding inflammation or ductal dilation. Adrenals: Unremarkable. Kidneys: Normal renal sizes. No hydronephrosis. Bladder: Unremarkable. Reproductive Organs: Prior hysterectomy. Adnexal regions are unremarkable. Bowel: Unremarkable. Appendix: Normal. Lymph nodes: No suspicious lymph node enlargement. Vasculature: Mild diffuse atherosclerotic calcifications are noted. Peritoneum / Retroperitoneum: No ascites. No free air. Bones: Scoliosis of the thoracolumbar spine. CT/Abdomen/Pelvis without Cont IMPRESSION: 1. No acute or significant CT abnormality in the abdomen and pelvis. 2. Probable hepatic cysts 3. Other findings as above One or more dose reduction techniques were used (e.g., Automated exposure contr ol, adjustment of the mA and/or kV according to patient size, use of iterative reconstruction technique). Reading Location: MEET
[2024-11-06 13:49] LABS: Absolute Lymphocyte Count 2.79 X10^3/uL (0.83-4.51); Absolute Neutrophil Count 10.9 X10^3/uL (2.0-7.7); Basophil# 0.06 X10^3/uL; Basophil% 0.4 % (0-1); Eosinophil# 0.13 X10^3/uL; Eosinophils% 0.9 % (0-5); Hematocrit 43.9 % (37-47); Hemoglobin 14.4 g/dL (12.0-15.0); Lymphocyte # 2.79 X10^3/ul (0.83-4.51); Lymphocyte % 18.9 % (19-41); Mean Corp Hgb Conc 32.8 g/dL (32-36); Mean Corpuscular Hgb 28.1 pg (27.0-32.0); Mean Corpuscular Volume 85.6 fL (81-99); Mean Platelet Vol. 10.6 fl (6.2-12.0); Monocyte# 0.87 X10^3/uL; Monocyte% 5.9 % (0-10); NRBC Flagged by Analyzer 0 % (0-5); Neutrophil # 10.88 X10^3/uL (2.7-7.7); Neutrophil % 73.5 % (47-70); Platelet Count 282 K/mm3 (150-450); RBC Distribution Width CV 15.9 % (11.6-14.6); RBC Distribution Width SD 49.8 fl (35.1-43.9); Red Blood Count 5.13 M/mm3 (4.2-5.4); White Blood Count 14.8 K/mm3 (4.4-11.0)
[2024-11-06 14:00] LABS: Mucous, Urine 0 SEEN /hpf (<or=2+); White Blood Cells 0 SEEN /hpf (0-5)
[2024-11-06 14:03] LABS: ALB/GLOB Ratio 0.9 RATIO (0.9-2.4); AST(SGOT) 20 U/L (15-37); Alanine Aminotransfer ALT/SGPT 34 U/L (13-56); Albumin, Serum 3.4 g/dL (3.2-5.0); Alkaline Phosphatase 109 U/L (45-117); Anion Gap 7 (5-15); BUN 13 mg/dL (7-18); BUN/Creat Ratio 16.4 RATIO (10-20); Calcium,Total 9.4 mg/dL (8.5-10.1); Chloride 104 mmol/L (98-107); Creatinine, Serum 0.79 mg/dL (0.55-1.02); EST Glomerular Filtration Rate 80 mL/min (>60); Est Glom Filt Rate - Afr Amer 97 mL/min (>60); Globulin 3.9 g/dL (2.2-4.2); Glucose 95 mg/dL (74-106); Potassium 3.7 mmol/L (3.5-5.1); Protein, Total 7.3 g/dL (6.4-8.2); Sodium Level 138 mmol/L (136-145)
[2024-11-06 14:13] LABS: Color, Urine Yellow (Yellow); Glucose, Dipstick Normal (Normal); Ketone-Dipstick Negative (Negative); Leukocyte Esterase-Dipstick Negative /ul (Negative); Nitrite-Dipstick Negative (Negative); Occult Blood-Urine Negative /ul (Negative); Protein-Dipstick 30 mg/dl (Negative); Specific Gravity, Urine 1.015 (1.002-1.030); Urine Bilirubin Dipstick Negative (Negative); Urine Clarity Clear (Clear); Urine Urobilinogen Normal (Normal)
[2024-11-06 14:20] LABS: Lipase 92 U/L (73-393)
[2024-11-06 14:21] LABS: Bacteria 1+ /hpf (None Seen); Squamous Epithelial Cells - UA 0-5 SEEN /hpf (5-10)
[2024-11-06 14:22] LABS: Red Blood Cells-Urine 0-5 SEEN /hpf (0-5)
[2024-11-06 15:23] VITALS: BP 132/88; PULSE 71; RESP 16; TEMP 36.9; O2SAT 94
== END 2024-11-06 15:24 | disposition home or self-care (01) ==
PROVIDERS: Physician Assistant; Emergency Provider Emergency Medicine; PCP Internal Medicine; Visit Provider Emergency Medicine
DX: R10.31 Right lower quadrant pain (principal); I10 Essential (primary) hypertension; E78.5 Hyperlipidemia, unspecified; K21.9 Gastro-esophageal reflux disease without esophagitis; Z90.49 Acquired absence of other specified parts of digestive tract; J45.909 Unspecified asthma, uncomplicated; F17.210 Nicotine dependence, cigarettes, uncomplicated; Z79.899 Other long term (current) drug therapy; R10.11 Right upper quadrant pain
CPT/HCPCS: 74176; 80053; 81001; 83690; 85025; 96374; 96375; 99283; A4216; J2405

== ENCOUNTER → 2024-11-11 | Outpatient (CLI) | payer OTHER, SELFPAY ==
[2024-11-11 14:19] LABS: Absolute Lymphocyte Count 2.82 X10^3/uL (0.83-4.51); Absolute Neutrophil Count 6.4 X10^3/uL (2.0-7.7); Basophil# 0.04 X10^3/uL; Basophil% 0.4 % (0-1); Eosinophil# 0.23 X10^3/uL; Eosinophils% 2.2 % (0-5); Hematocrit 42.4 % (37-47); Hemoglobin 13.7 g/dL (12.0-15.0); Lymphocyte # 2.82 X10^3/ul (0.83-4.51); Lymphocyte % 27.6 % (19-41); Mean Corp Hgb Conc 32.3 g/dL (32-36); Mean Corpuscular Volume 86.7 fL (81-99); Mean Platelet Vol. 10.7 fl (6.2-12.0); Monocyte# 0.67 X10^3/uL; Monocyte% 6.5 % (0-10); NRBC Flagged by Analyzer 0 % (0-5); Neutrophil # 6.43 X10^3/uL (2.7-7.7); Neutrophil % 62.9 % (47-70); Platelet Count 283 K/mm3 (150-450); RBC Distribution Width SD 50.8 fl (35.1-43.9); Red Blood Count 4.89 M/mm3 (4.2-5.4); White Blood Count 10.2 K/mm3 (4.4-11.0)
[2024-11-11 14:21] LABS: Erythrocyte Sedimentation Rate 10 mm/hr (0-30)
[2024-11-11 15:37] LABS: AST(SGOT) 21 U/L (<=31); Alanine Aminotransfer ALT/SGPT 25 U/L (<=34); Alkaline Phosphatase 102 U/L (35-104); Bilirubin, Direct 0.26 mg/dL (0.00-0.30); Creatinine, Serum 0.75 mg/dL (0.70-1.20); EST Glomerular Filtration Rate 93 (>60); Protein, Total 6.9 g/dL (5.9-8.4); Total Bilirubin 0.78 mg/dL (0.00-1.30)
== END | disposition home or self-care (01) ==
LOC: LAB 13:41
PROVIDERS: PCP Internal Medicine
DX: L40.50 Arthropathic psoriasis, unspecified (principal); Z51.81 Encounter for therapeutic drug level monitoring
CPT/HCPCS: 36415; 80076; 82565; 85025; 85652; 86140

== ENCOUNTER → 2024-12-26 | Outpatient (CLI) | payer OTHER, SELFPAY ==
--- NOTE | 2024-12-26 14:13 | US_ITS ---
PROCEDURE: PELVIC (NON ) 12/26/2024 REASON FOR EXAM: ULTRASOUND, PELVIS, COMPLETE TECHNIQUE: Transabdominal pelvic ultrasound Transvaginal pelvic ultrasound. COMPARISON: CT scan on 11/06/2024. FINDINGS: The uterus measures 8.1 x 6 x 4.2 cm. The endometrial thickness is between 6 and 8 mm. An intramural uterine leiomyoma is noted measuring 3.4 x 3.6 x 2.7 cm. No free fluid is noted in the pelvic cul-de-sac. The right ovary was not visualized. The left ovary was not visualized. US/Pelvic (Non ) IMPRESSION: 1. Diffusely thickened endometrium ranging in thickness between 6 and 8 mm. 2. An intramural uterine leiomyoma is noted measuring 3.6 cm. 3. No free fluid in the pelvic cul-de-sac. 4. Nonvisualization of the ovaries secondary to overlying bowel gas. Reading [facility] [place] [id number]
== END | disposition home or self-care (01) ==
LOC: US 14:12
PROVIDERS: PCP Internal Medicine; Referring Provider Internal Medicine; Visit Provider Internal Medicine
DX: N95.0 Postmenopausal bleeding (principal)
CPT/HCPCS: 76830; 76856

== ENCOUNTER → 2025-01-02 | Outpatient (CLI) | payer OTHER, SELFPAY ==
--- NOTE | 2025-01-02 08:33 | US_ITS ---
PROCEDURE: ABD LIMITED W/ ELASTOGRAPHY REASON FOR EXAM: ABDM LIMITED W/ ELASTOGRAPHY COMPARISON: Prior study dated January 09, 2023. TECHNIQUE: Right upper quadrant abdominal ultrasound. [employer] ElastQ Imaging shear wave elastography for non-invasive assessment of liver tissue stiffness. [employer] EPIQ Elite. FINDINGS: LIVER: Size: Unremarkable Length: 17.2 cm Echotexture: Diffusely echogenic suggesting fatty infiltration Contour: Normal Lesions: There is a 1.8 cm x 2 cm x 1.8 cm cyst in the right lobe of the liver. Elastography: EQI Med: 7.6 kPa EQI Med Marcio: 1.56 m/s IQR/Med: 18 %* GALLBLADDER: Surgically absent. COMMON BILE DUCT: 6 cm . PANCREAS: Visualized portions are sonographically unremarkable. Visualized portions of the right kidney are unremarkable. No right upper quadrant ascites. US/ABD Limited w/ Elastography IMPRESSION: Mild HEPATIC FIBROSIS Status post cholecystectomy. Reference Values: SRU <1.37 m/s (5.7kPa): No to mild fibrosis 1.37 m/s - 2.2 m/s: Moderate to severe fibrosis >2.2 m/s (15kPa): Significant fibrosis / cirrhosis METAVIR Score F2 or higher: 1.34 m/s (5.7kPa) F3 or higher: 1.55 m/s (7.3kPa) F4: 1.80 m/s (10kPa) * If the IQR/Med is >30%, the variance in the measurements is a large and the a ccuracy of the measurement may be in question. Reading Location: [place] [id number]
== END | disposition home or self-care (01) ==
PROVIDERS: PCP Internal Medicine; Referring Provider Internal Medicine; Visit Provider Internal Medicine
DX: K76.0 Fatty (change of) liver, not elsewhere classified (principal)
CPT/HCPCS: 76705; 76981

== ENCOUNTER → 2025-01-23 | Outpatient (CLI) | payer OTHER, SELFPAY ==
[2025-01-23 15:00] LABS: Absolute Lymphocyte Count 3.55 X10^3/uL (0.83-4.51); Absolute Neutrophil Count 6.6 X10^3/uL (2.0-7.7); Basophil# 0.05 X10^3/uL; Basophil% 0.4 % (0-1); Eosinophil# 0.26 X10^3/uL; Eosinophils% 2.3 % (0-5); Hematocrit 44.6 % (37-47); Hemoglobin 14.4 g/dL (12.0-15.0); Lymphocyte # 3.55 X10^3/ul (0.83-4.51); Lymphocyte % 31.6 % (19-41); Mean Corp Hgb Conc 32.3 g/dL (32-36); Mean Corpuscular Volume 89.9 fL (81-99); Mean Platelet Vol. 11.2 fl (6.2-12.0); Monocyte# 0.78 X10^3/uL; Monocyte% 6.9 % (0-10); NRBC Flagged by Analyzer 0 % (0-5); Neutrophil # 6.55 X10^3/uL (2.7-7.7); Neutrophil % 58.4 % (47-70); Platelet Count 319 K/mm3 (150-450); RBC Distribution Width CV 15.1 % (11.6-14.6); Red Blood Count 4.96 M/mm3 (4.2-5.4); White Blood Count 11.2 K/mm3 (4.4-11.0)
[2025-01-23 15:44] LABS: AST(SGOT) 21 U/L (<=31); Alanine Aminotransfer ALT/SGPT 18 U/L (<=34); Albumin, Serum 4.3 g/dL (3.5-5.0); Alkaline Phosphatase 92 U/L (35-104); Bilirubin, Direct 0.12 mg/dL (0.00-0.30); Protein, Total 7.3 g/dL (5.9-8.4); Total Bilirubin 0.35 mg/dL (0.00-1.30)
[2025-01-25 17:08] LABS: QNTFERON TB Mitogen Value > 10.00 IU/mL (.); QNTFERON TB Nil Value 0.02 IU/mL (.); QNTFERON TB1+ Ag Value 0.01 IU/mL (.); QNTFERON TB2+ Ag Value 0.02 IU/mL (.); QNTIFERON TB Positive Criteria Negative (Negative)
== END | disposition home or self-care (01) ==
LOC: LAB 14:10
PROVIDERS: PCP Internal Medicine; Referring Provider Dermatology; Visit Provider Dermatology
DX: L40.0 Psoriasis vulgaris (principal); L40.59 Other psoriatic arthropathy; L40.8 Other psoriasis; Z79.899 Other long term (current) drug therapy
CPT/HCPCS: 36415; 80076; 85025; 86480

== ENCOUNTER 2025-02-14 09:32 | Day surgery (SDC) | payer OTHER, SELFPAY ==
[2025-02-14] VITALS (10 sets, daily range): BP systolic 104–149; BP diastolic 61–97; PULSE 64–80; RESP 16–18; TEMP 36.1–36.4; O2SAT 92–100; BMI 46.5
--- NOTE | 2025-02-14 01:43 | PCM.HP.BLA ---
History and Physical Intake Vital Signs 12/28/2507:59 01/24/2516:07 01/30/2513:56 Height 5 ft 5 in 5 ft 5 in 5 ft 5 in Weight: 277 lb 4 oz BMI 46.1 BP 125/84 H Intake Visit Reasons: ABN Pelvic US from PCP Parole Hearing Officer Required: No Is patient in pain?: Yes (headache) Allergies No Known Allergies Allergy (Verified 01/30/25 14:01) Medications ?Medication ?Instructions ?Recorded ?Confirmed ?Type montelukast 10 mg tablet 10 mg PO QHS 10/27/17 01/30/25 History (Singulair) cholecalciferol (vitamin D3) 125 5,000 unit PO SUTUTHFR 12/02/17 01/30/25 History mcg (5,000 unit) disintegrating tablet losartan 100 1 ea PO DAILY 04/30/18 01/30/25 History mg-hydrochlorothiazide 25 mg tablet albuterol sulfate 90 mcg/actuation 1 - 2 inh inhalation Q4H PRN PRN 06/28/18 01/30/25 History aerosol inhaler (ProAir HFA) Asthma guselkumab 100 mg/mL subcutaneous 100 mg subcut Q8W 01/01/23 01/30/25 History auto-injector (Tremfya) vortioxetine 20 mg tablet 20 mg PO DAILY 01/01/23 01/30/25 History (Trintellix) atenolol 25 mg tablet 25 mg PO DAILY 01/11/24 01/30/25 History buspirone 5 mg tablet 20 mg PO DAILY 01/11/24 01/30/25 History meloxicam 15 mg tablet 15 mg PO DAILY PRN PRN pain 01/11/24 01/30/25 History potassium chloride 10 mEq 40 meq PO DAILY 01/11/24 01/30/25 History tablet,extended release(part/cryst) cholecalciferol (vitamin D3) 125 10,000 unit PO MOWEFR 08/29/24 01/30/25 History mcg (5,000 unit) tablet (Vitamin D3) sulfasalazine 500 mg 500 mg PO BID 08/29/24 01/30/25 History tablet,delayed release fenofibrate PO 01/30/25 History omeprazole 20 mg capsule,delayed 40 mg PO DAILY 01/30/25 01/30/25 History release Patient : No : No PFSH Medical History (Updated 01/30/25 @ 14:[address] Trina Matta MD) Post-menopausal Wears glasses History of steroid therapy Arthritis Anemia Fatty liver Back pain Chronic constipation Gastric reflux Smoker CPAP (continuous positive airway pressure) dependence Shortness of breath on exertion History of pain when walking History of edema History of echocardiogram Pain repair of right humerus Asthma Hyperlipidemia Anxiety Depression HTN (hypertension) Surgical History (Updated 01/30/25 @ 14:[address] 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 she denies any pelvic pain discharge odor, dyspareunia. she does have chronic urinary issues. Female Reproductive History Menopausal Symptoms: No night sweats History 4 Elective abortions Hx Para 4 Spontaneous abortions Hx # Term Pregnancies Ectopic pregnancies Hx # Pregnancies Multiple births # of living children Past Pregnancies Del. Date Name GA/Weeks Outcome Route Bth Weight Infant Gen Labor Lgth Anesthesia Del Locatn Provider FOB Unknown 1988 Concepcion Unknown 1991 Maynor Unknown 1993 Paulino Unknown 1995 Ava ROS Const Constitutional: Denies fatigue, night sweats, weight gain or weight loss ENT ENT: Reports system reviewed and no additional complaints, except as documented Cardio Card: Denies chest pain Resp Resp: Denies cough or dyspnea GI GI: Reports as per HPI and constipation; Denies abdominal pain, nausea or vomiting : Denies nipple discharge, urinary frequency, urinary incontinence, urinary hesitancy, urinary urgency, vaginal discharge, vaginal dryness, vaginal odor or vaginal pruritus Musc Musc: Reports arthralgias and back pain; Denies muscle weakness Skin Skin/Breast: Denies alopecia, change in hair, dry skin, breast mass, breast pain, breast skin changes or nipple discharge Neuro Neuro: Reports system reviewed and no additional complaints, except as documented Psych Psych: Reports system reviewed and no additional complaints, except as documented Endo Endo: Denies cold intolerance, excessive sweating, heat intolerance or polydipsia Osei/Lymph Hematologic/Lymphatic: Denies easy bleeding, Denies easy bruising and Denies lymphadenopathy Exam Const General: cooperative, healthy appearing, comfortable and no acute distress Orientation: alert HENDC Head: normal to inspection and normocephalic Ears: hearing grossly normal bilaterally and external ears normal Nose: external nose normal and nares normal Face and sinus: normal facial exam Neck Neck: normal visual inspection and no lymphadenopathy Thyroid: thyroid normal Chest Chest palpation & inspection: normal inspection of the chest Resp Effort & Inspection: normal respiratory effort Auscultation: clear to auscultation bilaterally Cardio Rate: regular rate Rhythm: regular rhythm Heart Sounds: S1 normal and S2 normal GI Inspection: normal to inspection and non-distended Palpation: soft and no hepatosplenomegaly Musc Other: gross motor intact no deficits, full bilateral strength Skin General: no rashes or lesions noted Neuro General: patient alert, patient awake, moves all extremities and no focal motor deficits Motor: muscle tone normal throughout Extrem General: normal to inspection and no pedal edema Psych Appearance: grossly normal Mental Status: mental status grossly normal Affect: normal affect Speech and Movement: speech and movement normal Coding Level of Care Code Off vis,est,level 4 Diagnoses Postmenopausal bleeding N95.0 Uterine fibroid D25.9 Assessment and Plan Assessment and Plan (1) Postmenopausal bleeding: Status: Acute Comment: recommend d and c hysteroscopy symphion (2) Uterine fibroid: Status: Acute Plan After discussing the patient's diagnosis and treatment plan options, patient wishes to proceed with surgical management. I have discussed with the patient the risks, benefits, and alternatives of the procedure which include but are not limited to risks of anesthesia, bleeding, infection, possible damage to bowel, bladder, or surrounding vasculature which could lead to additional surgery to evaluate any complications. Patient agrees to procedure and wishes to proceed. ACOG/uptodate references given for additional information regarding procedure.
[2025-02-14] MEDS: Lactated Ringers 1,000 ML 15 ML IV (09:56)
--- NOTE | 2025-02-14 10:06 | PCM.PRE.AN2 ---
ASA Classification* ASA Classification ASA Classification: 3 Assessment & Plan Anesthesia* Anesthesia Assessment Anesthesia Assessment: Discussed sedation and/or anesthesia options, risks, benefits, and alternatives with patient/parents/legal guardian/POA. Questions invited. The patient/parents/legal guardian/POA seems to understand and agrees to proceed with anesthesia plan. Reviewed the physical assessment, medical history, allergy history and patient home medications list prior to surgery/procedure/anesthetic and documented any changes. Performed airway and anesthesia risk assessments. Anesthesia Type Anesthesia Type: MAC History Source History Obtained from:: Patient and Chart Anesthesia Focused Assessment* Temperature: 97.3 F Pulse Rate: 71 Blood Pressure: 137/97 Respiratory Rate: 16 Pulse Ox: 95 Oxygen Delivery Method: Room Air Airway Assessment Mouth opens: >3 cm Mallampati Score: II Neck Range of motion (ROM): Full ROM Comment: Permanent bridge X2, 2-3 dental implants, right lower molar loose Focused Labs Anesthesia Preop lab: CBC WBC 11.2 K/mm3 (4.4-11.0) H 01/23/25 14:16 01/23/25 RBC 4.96 M/mm3 (4.2-5.4) 01/23/25 14:16 01/23/25 Hgb 14.4 g/dL (12.0-15.0) 01/23/25 14:16 01/23/25 Hct 44.6 % (37-47) 01/23/25 14:16 01/23/25 Plt Count 319 K/mm3 (150-450) 01/23/25 14:16 01/23/25 CHEMISTRY Potassium 3.7 mmol/L (3.5-5.1) 11/06/24 13:40 11/06/24 Sodium 138 mmol/L (136-145) 11/06/24 13:40 11/06/24 Magnesium 2.1 mg/dL (1.6-2.6) 12/20/21 15:10 12/20/21 BUN 13 mg/dL (7-18) 11/06/24 13:40 11/06/24 Creatinine 0.75 mg/dL (0.70-1.20) 11/11/24 13:53 11/11/24 Glucose 95 mg/dL (74-106) 11/06/24 13:40 11/06/24 TSH 1.41 uIU/mL (0.358-3.74) 11/09/20 09:55 11/09/20 COAG PT 12.9 SECONDS (11.7-14.9) 12/08/17 07:25 12/08/17 Urine Test Negative Negative 04/30/20 08:45 04/30/20 Tst Clinic Negative 01/01/23 15:59 01/01/23 Pre-Assessment Diagnosis/Proposed Procedure Planned Operative Procedure(s): HYSTEROSCOPY D&C Anesthesia History 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 When Was Last Pacemaker Check QUESTION #4 FULL TEXT: You/Your Family Experience fever (hyperthermia) with Anesthesia Last Oral Intake Last Oral intake: Last Oral Intake NPO since 00:00 02/14/25 09:53 Meds taken in AM with sips of No 02/14/25 09:53 water? Meds patient instructed to take am of surgery PONV PONV - capsule filling machine operator: PONV - capsule filling machine operator Female Yes 02/10/25 12:37 HX of Motion Sickness Yes 02/10/25 12:37 HX of N/V After Surgery No 02/10/25 12:37 Non-Smoker No 02/10/25 12:37 Duration of Surgery greater No 02/10/25 12:37 than 60 minutes Number of Risk Factors 2 02/10/25 12:37 PONV Score Moderate Risk 02/10/25 12:37 Height & Weight Height & Weight: Anesthesia: Height & Weight Height 5 ft 5 in 02/14/25 09:53 Weight: 127 kg 02/14/25 09:53 Body Mass Index (BMI) 46.5 02/14/25 09:53 Respiratory Assessment Respiratory Assessment - capsule filling machine operator: Respiratory Tract Infection Hx - capsule filling machine operator Hx Respiratory Tract Infection No 02/10/25 12:37 STOP Sleep Apnea STOP Sleep Apnea - capsule filling machine operator: STOP Sleep Apnea - capsule filling machine operator Hx Hypertension Yes: CONTROLLED WITH MED 02/10/25 12:37 Hx Sleep Apnea Yes 02/10/25 12:37 CPAP Yes 02/10/25 12:37 BIPAP No 02/10/25 12:37 Do you snore loudly (louder than talking or can be heard Do you often feel tired/ fatigued/ sleepy during daytime? Has anyone observed you stop breathing during sleep? STOP Results Positive 02/10/25 12:37 QUESTION #5 FULL TEXT : Do you snore loudly (louder than talking or can be heard through closed doors)? 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 Specify any problems Hx of Preganancy in last 3 No 02/10/25 12:37 Months Nurse Filling Out Transfusion DSCHRIBER 02/10/25 12:37 & Questions: Date: 02/10/25 02/10/25 12:37 Time: 12:38 02/10/25 12:37 Patient unable to answer at this time (ie. confused, unrespo /Reproduction History /Reproductive History - capsule filling machine operator: /Reproductive Hx- capsule filling machine operator Hx Now No 02/10/25 12:37 Gestational Age (in weeks): EDC: Hx Hx Para Hx Section SAB No 02/10/25 12:37 Active Medications Active Medications: Current Medications Generic Name Dose Route Start Last Admin Trade Name Freq PRN Reason Stop Dose Admin Lactated Ringer's 1,000 mls @ 15 mls/hr 02/14/25 09:45 06/03/25 09:56 IV 15 mls/hr .Q48H OTONIEL Administration PFSH Medical History History of Holter monitoring Post-menopausal Wears glasses Arthritis Anemia Fatty liver Back pain Chronic constipation Gastric reflux Smoker CPAP (continuous positive airway pressure) dependence Shortness of breath on exertion History of pain when walking History of edema History of echocardiogram Pain Asthma Hyperlipidemia Anxiety Depression HTN (hypertension) Home Medications ?Medication ?Instructions ?Recorded ?Last Taken ?Type montelukast 10 mg tablet 10 mg PO QHS 10/27/17 02/13/25 History (Singulair) cholecalciferol (vitamin D3) 125 5,000 unit PO SUTUTHFR 12/02/17 02/13/25 History mcg (5,000 unit) disintegrating tablet losartan 100 1 ea PO DAILY 04/30/18 02/13/25 History mg-hydrochlorothiazide 25 mg tablet albuterol sulfate 90 mcg/actuation 1 - 2 inh inhalation Q4H PRN PRN 06/28/18 Unknown History aerosol inhaler (ProAir HFA) Asthma guselkumab 100 mg/mL subcutaneous 100 mg subcut Q8W 01/01/23 Unknown History auto-injector (Tremfya) vortioxetine 20 mg tablet 20 mg PO DAILY 01/01/23 02/13/25 History (Trintellix) atenolol 25 mg tablet 25 mg PO DAILY 01/11/24 02/13/25 History buspirone 5 mg tablet 20 mg PO DAILY 01/11/24 02/13/25 History meloxicam 15 mg tablet 15 mg PO DAILY PRN PRN pain 01/11/24 Unknown History potassium chloride 10 mEq 40 meq PO DAILY 01/11/24 02/13/25 History tablet,extended release(part/cryst) cholecalciferol (vitamin D3) 125 10,000 unit PO MOWEFR 08/29/24 02/13/25 History mcg (5,000 unit) tablet (Vitamin D3) sulfasalazine 500 mg 1.5 g PO BID 08/29/24 02/13/25 History tablet,delayed release fenofibrate 145 mg PO DAILY 01/30/25 02/13/25 History omeprazole 20 mg capsule,delayed 40 mg PO DAILY 01/30/25 02/13/25 History release Allergy/AdvReac Type Severity Reaction Status Date / Time No Known Allergies Allergy Verified 02/14/25 09:51 Family History Grandmother Cancer pancreatic Surgical History History of tonsillectomy and adenoidectomy Hx laparoscopic cholecystectomy History of surgery on arm History of dental surgery Hx of colonoscopy History of incisional hernia repair Social History current occupational status: employed current occupation: [employer] Smoking Status: Current every day smoker tobacco type: cigarettes alcohol intake: current details: social substance use type: does not use caffeine: Yes what type of physical activity do you participate in: none seatbelt use: always do you feel safe at home: Yes 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
[2025-02-14 10:57] LABS: ALB/GLOB Ratio 1.5 RATIO (0.9-2.4); AST(SGOT) 24 U/L (<=31); Alanine Aminotransfer ALT/SGPT 17 U/L (<=34); Albumin, Serum 4.2 g/dL (3.5-5.0); Alkaline Phosphatase 104 U/L (35-104); Anion Gap 12 (5-15); BUN 8 mg/dL (4-19); BUN/Creat Ratio 11.4 RATIO (10-20); Calcium,Total 9.3 mg/dL (7.6-11.0); Chloride 104 mmol/L (98-108); Creatinine, Serum 0.68 mg/dL (0.70-1.20); EST Glomerular Filtration Rate 103 (>60); Estimated Creatinine Clearance 125.43 ml/min (50-250); Globulin 2.9 g/dL (2.2-4.2); Glucose 88 mg/dL (70-99); Potassium 3.7 mmol/L (3.3-5.1); Protein, Total 7.1 g/dL (5.9-8.4); Sodium Level 140 mmol/L (133-145); Total Bilirubin 0.43 mg/dL (0.00-1.30)
--- NOTE | 2025-02-14 11:15 | EMB_PTH ---
PATIENT: JOAN GUDINO [place] [facility] [place][id number] AGE/SX: 54/F ROOM: RE02/14/[address]: Dr. Trina Matta MD : 1970 BED: DIS: 02/14/2025 SPEC #: [id number] RECD: 02/14/25 13:17 STATUS: MOSES FRENCH #: [id number] JUAN: 02/14/25 11:[address]: Trina Matta DEPT: SURGICAL PATHOLOGY RECD BY: Tom Kingsley ENTERED: 02/14/25 13:42 SP TYPE: ENDOM BX/C OTHR DR: Dr. Candelaria John, DO Tissues: A - Endometrium, NOS Procedures: Surgery Specimen Level IV HEADER OPERATION: Hysteroscopy, D&C, polypectomy PRE-OP DIAGNOSIS: Post menopausal bleeding, uterine fibroid TISSUE SUBMITTED: A- Endometrial curettings and polyp MICROSCOPIC DIAGNOSIS A. Endometrium, curettage and polypectomy: * Fragments of disordered proliferative endometrium and endometrial polyp(s) with focal simple hyperplasia without atypia. MICROSCOPIC DESCRIPTION Slides are reviewed. GROSS DESCRIPTION A. Received in formalin in a container labeled with the patient's name, date of , and endometrial curettings and polyps are multiple red-carnes fragments of soft tissue admixed with blood and mucus measuring 2.5 x 1.7 x 0.8 cm in aggregate. Submitted in toto in A1-2. [facility] 02-14-2025 CPT:26905
[2025-02-14] MEDS: Lidocaine 1% (20 ml mdv) 20 ML Vial (12:16)
--- NOTE | 2025-02-14 12:32 | PCM.POST.ANE ---
Anesthesia: Postop Eval I Current Vital Signs Temperature: 97 F Pulse Rate: 80 Blood Pressure: 112/80 Respiratory Rate: 16 Pulse Ox: 92 Oxygen Delivery Method: Venturi Mask Oxygen Flow Rate (L/min): 6 Assessment Airway patent: Yes Spontaneous unlabored respirations: Yes Mental status: Awake and Calm nausea: No Vomiting: No Anesthesia Complication: No Fluid Hydration Crystalloid volume administer (ml): 1,100 Total IV fluid infused: 1,100 Progress Note Anesthesia document: Postop Eval 1 completed: Yes
[2025-02-14] MEDS: Sucralfate 1 GM Tablet PO (13:14)
--- NOTE | 2025-02-14 13:14 | POSTOPAN2_ITS ---
Anesthesia Postop Eval I Sum Postop Eval Completion status Anesthesia document: Postop Eval 1 completed: Yes Anesthesia Postop Eval I Summary Anesthesia Postop Eval I Summary: Anesthesia Postop Eval I: Assessment Summary Airway patent Yes 02/14/25 12:33 HEALTH AND SAFETY COORDINATOR.MDOT Spontaneous unlabored Yes 02/14/25 12:33 HEALTH AND SAFETY COORDINATOR.MDOT respirations Mental status Awake,Calm 02/14/25 12:33 HEALTH AND SAFETY COORDINATOR.MDOT nausea No 02/14/25 12:33 HEALTH AND SAFETY COORDINATOR.MDOT Vomiting No 02/14/25 12:33 HEALTH AND SAFETY COORDINATOR.MDOT Anesthesia Postop Eval I: Fluid Summary Crystalloid volume administer 1,100 02/14/25 12:33 HEALTH AND SAFETY COORDINATOR.MDOT (ml) Colloids volume administered ( ml) Blood Product volume administered (ml) Total IV fluid infused 1,100 02/14/25 12:33 HEALTH AND SAFETY COORDINATOR.MDOT Anesthesia Postop Eval I: Summary Notes Anesthesia Complication No 02/14/25 12:33 HEALTH AND SAFETY COORDINATOR.MDOT Anesthesia Complication Comment: Post-operative progress note Anesthesia: Postop Eval II Evaluation Mental status: Awake Pain Level: 1 nausea: No Vomiting: No
--- NOTE | 2025-02-14 13:14 | PCM.POSTANE2 ---
Anesthesia Postop Eval I Sum Postop Eval Completion status Anesthesia document: Postop Eval 1 completed: Yes Anesthesia Postop Eval I Summary Anesthesia Postop Eval I Summary: Anesthesia Postop Eval I: Assessment Summary Airway patent Yes 02/14/25 12:33 LANDCARE FACILITATOR.MDOT Spontaneous unlabored Yes 02/14/25 12:33 LANDCARE FACILITATOR.MDOT respirations Mental status Awake,Calm 02/14/25 12:33 LANDCARE FACILITATOR.MDOT nausea No 02/14/25 12:33 LANDCARE FACILITATOR.MDOT Vomiting No 02/14/25 12:33 LANDCARE FACILITATOR.MDOT Anesthesia Postop Eval I: Fluid Summary Crystalloid volume administer 1,100 02/14/25 12:33 LANDCARE FACILITATOR.MDOT (ml) Colloids volume administered ( ml) Blood Product volume administered (ml) Total IV fluid infused 1,100 02/14/25 12:33 LANDCARE FACILITATOR.MDOT Anesthesia Postop Eval I: Summary Notes Anesthesia Complication No 02/14/25 12:33 LANDCARE FACILITATOR.MDOT Anesthesia Complication Comment: Post-operative progress note Anesthesia: Postop Eval II Evaluation Mental status: Awake Pain Level: 1 nausea: No Vomiting: No
--- NOTE | 2025-02-14 14:09 | PCM.OPRPT ---
Problems Associated Problem List Diagnoses (1) Postmenopausal bleeding: (2) Uterine fibroid: Multi Select Codes Urinary/Genital Urinary/Genital CPT Codes: 16839 Hysteroscopy,EMC, Polypectomy Operative Report (Standard) Operative Information Date of Procedure: 02/14/25 Pre-Operative Diagnosis: see problem list details Post-Operative Diagnosis: same Surgery/Procedure Performed: dilation and curettage hysteroscopy symphion polypectomy editorial project manager: No Type of Anesthesia: IV Sedation RN Documented Start/Stop Times: Operation Date: 02/14/25 11:15 Case Time Into Pre-Op 02/14/25 09:35 Out of Pre-Op 02/14/25 11:48 Anesthesia Start 02/14/25 11:51 Into Room 02/14/25 11:51 Procedure Start 02/14/25 12:13 Procedure End 02/14/25 12:30 Anesthesia End 02/14/25 12:36 Out of Room 02/14/25 12:36 Into Recovery 02/14/25 12:40 Out of Recovery 02/14/25 13:35 Into Phase II Recovery 02/14/25 13:37 Out of Phase II 02/14/25 14:31 Procedure Start Time: 12:13 Procedure Stop Time: 12:30 Select all DRAINS/GRAFTS/IMPLANTS that apply: None Estimated Blood Loss: 25 Specimen collected: Yes Description of specimen(s) removed: endometrial curretings and polyp Description of surgery: Patient was prepped and draped in a normal sterile fashion under MAC anesthesia. A weighted speculum was placed in the vagina and the anterior lip of the cervix was grasped with a single-tooth tenaculum. A paracervical block was placed with 1% lidocaine. Cervix was progressively dilated to allow passage of a 5 mm hysteroscope. The lining was fully visualized and noted to have 2 polyps on the right side . Uterine sounded to 7 cm. Using the symphion device, the polyps was progressively removed without complications. Direct visual curettage was performed using the device , and all specimens were sent to pathology. All instruments were removed from the vagina and excellent hemostasis was noted. Patient was awoken and taken to recovery in stable condition. Surgical Findings: endometrial polyps Complications Complications: No
--- NOTE | 2025-02-14 14:10 | PCM.DC ---
Discharge Instructions Diet Discharge Diet: No restrictions DC O2, CPAP, BIPAP needs Home O2 Discharge instructions: No Dressing / Incision Discharge Activity: Return to Normal Activity, May Shower and May Take a Tub Bath (after 1 week) May resume sexual activity in: 1-2 weeks Weight Bearing Status: Weight bearing as tolerated Lifting Restrictions: none Dressing / Incision Call your doctor if you observe: Fever of 101 or Higher, Using more than 1 pad per hour, Shortness of breath and Uncontrolled pain Follow Up Care Please Follow Up With: Trina Matta MD When: Call [phone] to schedule appointment. Test Results: Test results from this visit will be discussed in further detail at your follow-up appointment, if applicable. Discharge Plan Admission Attending Provider: Trina Matta Primary Care Provider: Candelaria John Instructions Print Language: [place]errat[place] Discharge Orders/Prescriptions Prescriptions: No Action montelukast [Singulair] 10 mg tablet 10 mg PO QHS Trintellix 20 mg tablet 20 mg PO DAILY Tremfya 100 mg/mL auto-injector 100 mg subcut Q8W atenolol 25 mg tablet 25 mg PO DAILY meloxicam 15 mg tablet 15 mg PO DAILY PRN PRN (Reason: pain) fenofibrate 145 mg PO DAILY Patient Comments: unsure of dose potassium chloride 10 mEq tablet,ER particles/crystals 40 meq PO DAILY Patient Comments: supplement cholecalciferol (vitamin D3) 5,000 UNIT tablet,disintegrating 5,000 unit PO SUTUTHFR buspirone 5 mg tablet 20 mg PO DAILY losartan-hydrochlorothiazide 1 EACH tablet 1 ea PO DAILY omeprazole 20 mg capsule,delayed release(DR/EC) 40 mg PO DAILY albuterol sulfate [ProAir HFA] 1 PUFF inhaler 1 - 2 inh inhalation Q4H PRN PRN (Reason: Asthma) cholecalciferol (vitamin D3) [Vitamin D3] 125 mcg (5,000 unit) tablet 10,000 unit PO MOWEFR sulfasalazine 500 mg tablet,delayed release (DR/EC) 1.5 g PO BID Referrals / Follow Up: Candelaria John DO [Primary Care Provider] - Disposition Disposition (needs filled in before D/C Order can be placed): Home, Self Care
== END 2025-02-14 14:31 | disposition home or self-care (01) ==
LOC: SDC 09:33 → AC 09:34
PROVIDERS: PCP Internal Medicine; Referring Provider Obstetrics & Gynecology; Visit Provider Obstetrics & Gynecology
PROC: 0UB98ZZ Excision of Uterus, Via Natural or Artificial Opening Endoscopic (ICD-10-PCS; CPT 58558; principal; 2025-02-14 11:00)
DX: N85.01 Benign endometrial hyperplasia (principal); F17.210 Nicotine dependence, cigarettes, uncomplicated; E78.5 Hyperlipidemia, unspecified; N95.0 Postmenopausal bleeding; I10 Essential (primary) hypertension; K21.9 Gastro-esophageal reflux disease without esophagitis; J45.909 Unspecified asthma, uncomplicated; Z79.899 Other long term (current) drug therapy
CPT/HCPCS: 58558; 00952; 80053; 86850; 86900; 86901; 88305; J2405

== ENCOUNTER → 2025-03-20 | Outpatient (CLI) | payer OTHER, SELFPAY ==
[2025-03-20 15:49] LABS: Hematocrit 44.6 % (37-47); Hemoglobin 14.6 g/dL (12.0-15.0); Immature Granulocytes Count 0.020 X10^3/uL (0.0-0.0); Mean Corp Hgb Conc 32.7 g/dL (32-36); Mean Corpuscular Volume 88.0 fL (81-99); Mean Platelet Vol. 11.2 fl (6.2-12.0); NRBC Flagged by Analyzer 0 % (0-5); Platelet Count 304 K/mm3 (150-450); RBC Distribution Width CV 14.3 % (11.6-14.6); RBC Distribution Width SD 45.9 fl (35.1-43.9); Red Blood Count 5.07 M/mm3 (4.2-5.4); White Blood Count 8.8 K/mm3 (4.4-11.0)
[2025-03-20 16:09] LABS: Creatinine, Urine (random) 312.00 mg/dL (28.00-217.00); Microalbumin,Random Urine 13.1 mg/L (NO RANGE EST.)
[2025-03-20 16:23] LABS: AST(SGOT) 20 U/L (<=31); Alanine Aminotransfer ALT/SGPT 15 U/L (<=34); Albumin, Serum 4.2 g/dL (3.5-5.0); Alkaline Phosphatase 103 U/L (35-104); Anion Gap 13 (5-15); BUN 11 mg/dL (4-19); BUN/Creat Ratio 14.8 RATIO (10-20); Bilirubin, Direct 0.17 mg/dL (0.00-0.30); CRP 8.05 mg/L (0.0-3.0); Calcium,Total 9.6 mg/dL (7.6-11.0); Carbon Dioxide 23.5 mmol/L (21.0-32.0); Chloride 105 mmol/L (98-108); Cholesterol 303 mg/dL (<=200); Globulin 3.1 g/dL (2.2-4.2); Glucose 89 mg/dL (70-99); Low Density Lipoprotein Calc. 220 mg/dL; Potassium 4.0 mmol/L (3.3-5.1); Triglycerides 246 mg/dL; Very Low Density Lipoprotein 49 mg/dL (5-40); Vitamin B12 341 pg/mL (180-914); Vitamin D,25 Hydroxy 42.6 ng/mL (30-100); cholesterol:hdl ratio screen 8.89
[2025-03-20 16:28] LABS: FOLATES,SERUM (FOLIC ACID) 7.16 ng/mL (4.60-34.80)
[2025-03-22 04:07] LABS: CRP, High Sensitivity 5.92 mg/L (0.00-3.00)
== END | disposition home or self-care (01) ==
LOC: MTLAB 11:06
PROVIDERS: PCP Internal Medicine; Referring Provider Internal Medicine; Visit Provider Internal Medicine
DX: E55.9 Vitamin D deficiency, unspecified (principal); L40.50 Arthropathic psoriasis, unspecified; R73.09 Other abnormal glucose; E53.8 Deficiency of other specified B group vitamins; R79.82 Elevated C-reactive protein (CRP); E78.2 Mixed hyperlipidemia; K76.0 Fatty (change of) liver, not elsewhere classified; Z51.81 Encounter for therapeutic drug level monitoring
CPT/HCPCS: 36415; 80053; 80061; 82043; 82105; 82248; 82306; 82570; 82607; 82746; 83036; 85025; 85652; 86140; 86141

== ENCOUNTER → 2025-04-04 | Outpatient (CLI) | payer OTHER, SELFPAY ==
--- NOTE | 2025-04-04 15:43 | RAD_ITS ---
PROCEDURE: CHEST PA AND LATERAL 04/04/2025 REASON FOR EXAM: COUGH TECHNIQUE: CHEST PA AND LATERAL COMPARISON: 08/03/2019 FINDINGS: Right lower lobe opacity may reflect atelectasis, pneumonia, and/or aspiration. Left lower lobe subsegmental atelectasis. No pleural effusion or pneumothorax. Cardiac silhouette is within normal limits. Severe dextroscoliosis of the thoracic spine. Orthopedic hardware noted within the right humerus. RAD/Chest PA and Lateral IMPRESSION: Right lower lobe opacity may reflect atelectasis, pneumonia, and/or aspiration. Reading Location: [id number]
[2025-04-06 10:08] LABS: QNTFERON TB Mitogen Value > 10.00 IU/mL (.); QNTFERON TB Nil Value 0.02 IU/mL (.); QNTFERON TB1+ Ag Value 0.01 IU/mL (.); QNTFERON TB2+ Ag Value 0.01 IU/mL (.); QNTIFERON TB Positive Criteria Negative (Negative)
== END | disposition home or self-care (01) ==
LOC: RAD 15:26
PROVIDERS: PCP Internal Medicine; Referring Provider Internal Medicine Rheumatology; Visit Provider Internal Medicine Rheumatology
DX: R05.9 Cough, unspecified (principal); Z51.81 Encounter for therapeutic drug level monitoring
CPT/HCPCS: 36415; 71046; 86480

== ENCOUNTER → 2025-05-01 | Outpatient (CLI) | payer OTHER, SELFPAY ==
--- NOTE | 2025-05-01 14:30 | RAD_ITS ---
PROCEDURE: CHEST PA AND LATERAL 05/01/2025 REASON FOR EXAM: PA AND LATERAL CXR Follow up pneumonia. TECHNIQUE: CHEST PA AND LATERAL COMPARISON: Chest x-ray of 04/04/2025. RAD/Chest PA and Lateral IMPRESSION: Degenerative changes of the spine and dextroscoliosis are again seen, similar t o the prior study. Partially visualized postsurgical changes of the right humerus again seen. Lungs are hypoinflated, but appear clear of acute disease. No pleural effusion or pneumothorax is seen. The cardiomediastinal silhouette is stable, without evidence of cardiomegaly. Reading Location: [place] [id number]
== END | disposition home or self-care (01) ==
LOC: RAD 14:25
PROVIDERS: PCP Internal Medicine; Referring Provider Internal Medicine; Visit Provider Internal Medicine
DX: R93.89 Abnormal findings on diagnostic imaging of other specified body structures (principal)
CPT/HCPCS: 71046

== ENCOUNTER → 2025-05-22 | Outpatient (CLI) | payer OTHER, SELFPAY ==
--- NOTE | 2025-05-22 13:45 | BI_ITS ---
EXAM: SCRN MAMM (CAD)W/CASEY BILAT DATE: 05/22/2025 CLINICAL HISTORY: F, Age 54 y/o , SCRN MAMM (CAD)W/CASEY BILAT TECHNIQUE: Procedure Code: [id number] Modality: MG Procedure: SCRN MAMM (CAD)W/CASEY BILAT COMPARISON: Prior exam(s) dated 02/02/2024 and 01/12/2023. FINDINGS: TISSUE DENSITY: There are scattered areas of fibroglandular density. Bilateral Breast Mammographic Findings: There are no suspicious masses, suspicious clustered microcalcifications, architectural distortion or secondary signs of malignancy identified in either breast. A benign-appearing round microcalcification is seen in the left breast. There has been no overall interval significant change in either breast since the prior exams to suggest malignancy. BI/SCRN MAMM (CAD)W/CASEY BILAT IMPRESSION: Benign screening mammogram OVERALL FINAL ASSESSMENT BI-RADS 2: BENIGN RECOMMENDATION: Routine annual follow-up in 1 Year A letter with findings and recommendations will be mailed to the patient. Reading Location: [id number]
== END | disposition home or self-care (01) ==
PROVIDERS: PCP Internal Medicine; Referring Provider Internal Medicine; Visit Provider Internal Medicine
DX: Z12.31 Encounter for screening mammogram for malignant neoplasm of breast (principal)
CPT/HCPCS: 77063; 77067

== ENCOUNTER → 2025-07-08 | Outpatient (CLI) | payer OTHER, SELFPAY ==
[2025-07-08 12:26] LABS: Creatinine, Urine (random) 207.00 mg/dL (28.00-217.00); Microalbumin,Random Urine < 12.0 mg/L (<20 mg/L)
[2025-07-08 12:34] LABS: Hematocrit 43.4 % (37-47); Hemoglobin 14.3 g/dL (12.0-15.0); Immature Granulocytes Count 0.020 X10^3/uL (0.0-0.0); Mean Corp Hgb Conc 32.9 g/dL (32-36); Mean Corpuscular Volume 87.5 fL (81-99); Mean Platelet Vol. 10.8 fl (6.2-12.0); NRBC Flagged by Analyzer 0 % (0-5); Platelet Count 298 K/mm3 (150-450); RBC Distribution Width CV 14.0 % (11.6-14.6); RBC Distribution Width SD 45.1 fl (35.1-43.9); Red Blood Count 4.96 M/mm3 (4.2-5.4); White Blood Count 7.4 K/mm3 (4.4-11.0)
[2025-07-08 13:29] LABS: AST(SGOT) 22 U/L (<=31); Alanine Aminotransfer ALT/SGPT 19 U/L (<=34); Albumin, Serum 4.3 g/dL (3.5-5.0); Alkaline Phosphatase 84 U/L (35-104); Anion Gap 14 (5-15); BUN 12 mg/dL (4-19); BUN/Creat Ratio 15.6 RATIO (10-20); Bilirubin, Direct 0.22 mg/dL (0.00-0.30); CRP 6.37 mg/L (0.0-3.0); Calcium,Total 9.8 mg/dL (7.6-11.0); Carbon Dioxide 25.3 mmol/L (21.0-32.0); Chloride 103 mmol/L (98-108); Cholesterol 295 mg/dL (<=200); Globulin 3.0 g/dL (2.2-4.2); Glucose 93 mg/dL (70-99); Hepatitis B Surface Antigen Nonreactive (Nonreactive); Hepatitis C Antibody Nonreactive (Nonreactive); Low Density Lipoprotein Calc. 217 mg/dL; Potassium 3.8 mmol/L (3.3-5.1); Triglycerides 210 mg/dL; Very Low Density Lipoprotein 42 mg/dL (5-40); Vitamin B12 375 pg/mL (180-914); Vitamin D,25 Hydroxy 42.3 ng/mL (30-100); cholesterol:hdl ratio screen 8.02
[2025-07-08 13:33] LABS: FOLATES,SERUM (FOLIC ACID) 8.48 ng/mL (4.60-34.80)
== END | disposition home or self-care (01) ==
LOC: LAB 11:15
PROVIDERS: PCP Internal Medicine; Referring Provider Internal Medicine Rheumatology; Visit Provider Internal Medicine Rheumatology
DX: R73.09 Other abnormal glucose (principal); L40.50 Arthropathic psoriasis, unspecified; E53.8 Deficiency of other specified B group vitamins; E55.9 Vitamin D deficiency, unspecified; E78.2 Mixed hyperlipidemia; Z51.81 Encounter for therapeutic drug level monitoring
CPT/HCPCS: 36415; 80053; 80061; 82043; 82248; 82306; 82570; 82607; 82746; 83036; 85025; 85652; 86140; 86705; 86803; 87340

== ENCOUNTER → 2025-08-18 | Outpatient (CLI) | payer OTHER, SELFPAY ==
--- NOTE | 2025-08-18 16:53 | RAD_ITS ---
PROCEDURE: CHEST PA AND LATERAL 08/18/2025 REASON FOR EXAM: COUGH TECHNIQUE: Procedure Code: RADCXR Modality: DX Procedure: CHEST PA AND LATERAL COMPARISON: 05/01/2025 FINDINGS: Cardiomegaly. Mild central vascular congestion. No focal consolidation, pneumothorax or pleural effusion appreciated. Degenerative changes of the spine with moderate thoracic dextroscoliosis. RAD/Chest PA and Lateral IMPRESSION: 1. Cardiomegaly with mild vascular congestion. 2. No focal airspace consolidation or pleural effusion. 3. Moderate thoracic spine dextroscoliosis. Reading Location: [id number]
== END | disposition home or self-care (01) ==
LOC: MTRAD 16:53
PROVIDERS: PCP Internal Medicine; Referring Provider Physician Assistant Surgical; Visit Provider Physician Assistant Surgical
DX: R05.9 Cough, unspecified (principal)
CPT/HCPCS: 71046